=== PATIENT | male | born 1930 | race Caucasian/White ===

== ENCOUNTER 2016-10-26 11:37 | Observation (INO) | payer OTHER ==
[2016-10-26 11:51] VITALS: BMI 24.9
[2016-10-26 12:18] LABS: BASOPHIL 1.1 % (0-2.0); EOSINOPHIL 12.1 % (0-4.5); MCH 28.9 pg (25.7-33.7); MCHC 32.4 g/dl (32.0-35.9); MEAN CELL VOLUME 89.4 fl (80-96); NEUTROPHILS 62.7 % (42.8-82.8); PLATELET COUNT 130 K/MM3 (134-434); RDW 15.1 % (11.9-15.9); WHITE BLOOD COUNT 7.1 K/mm3 (4.0-10.0)
--- NOTE | 2016-10-26 12:27 | PDOC ---
History of Present Illness - General History Source: Patient, Family, Old Records Exam Limitations: No Limitations <Jay Carr - Last Filed: 10/26/16 16:27> - History of Present Illness Initial Comments: 10/26/16 12:28 The patient is a 85 year old male, with a significant past medical history of hypertension, hyperlipidemia, CHF, COPD, prostate CA (in remission), who presents to the emergency department with hematuria today and persistent bilateral flank pain for a few days. The patient states he does not voluntarily produce urine and wears diapers. The patients daughter reports noticing blood with clots in his diaper today. The patients daughter also states her father has been complaining of right sided flank pain for a couple of weeks with intermittent radiation to his groin and reports having a CT scan positive for right renal cyst and cholelithiasis on 10/14/16. The patient reports new onset of mild, intermittent, left flank pain for the past couple of days. He denies chest pain, shortness of breath, headache and dizziness. He denies fever, chills, nausea, vomit, diarrhea and constipation. He denies dysuria. Allergies: NKDA Social history: denies toxic habits Urologist - Dr. Rodas <Bren Brunson - Last Filed: 10/26/16 16:36> - General Chief Complaint: Hematuria Stated Complaint: PENILE BLEEDING Time Seen by Provider: 10/26/16 11:47 Past History - Past Medical History Cardiac Disorders: Yes (PA: 2002) COPD: Yes (EMPHYSEMA) HTN: Yes Kidney Stones: Yes - Surgical History Cardiac Surgery: Yes (STENTS X 3: 2002; VALVE REPLACEMENT X 2: 11/2011) - Psycho/Social/Smoking Cessation Hx Anxiety: No Suicidal Ideation: No Smoking Status: No (QUIT 2002) Smoking History: Never smoked Have you smoked in the past 12 months: No Number of Cigarettes Smoked Daily: 0 Information on smoking cessation initiated: No Hx Alcohol Use: No Drug/Substance Use Hx: No Substance Use Type: None <Jay Carr - Last Filed: 10/26/16 16:27> <Bren Brunson - Last Filed: 10/26/16 16:36> - Past Medical History Allergies/Adverse Reactions: Allergies Allergy/AdvReac Type Severity Reaction Status Date / Time No Known Allergies Allergy Verified 10/26/16 11:51 Home Medications: Ambulatory Orders Aspirin [ASA -] 81 mg PO DAILY 10/26/16 Brimonidine Tartrate [Alphagan P 0.1% -] 1 drop OU TID 10/26/16 Clopidogrel Bisulfate [Plavix -] 75 mg PO DAILY 10/26/16 Fluticasone Prop 0.05% Nasal [Flonase -] 1 - 2 spray NS BID 10/26/16 Metoprolol Succinate [Toprol Xl -] 25 mg PO DAILY 10/26/16 Rosuvastatin [Crestor -] 20 mg PO DAILY 10/26/16 Review of Systems - Review of Systems Able to Perform ROS?: Yes Comments:: 10/26/16 12:29 GENERAL/CONSTITUTIONAL: No fever or chills. No weakness. HEAD, EYES, EARS, NOSE AND THROAT: No change in vision. No ear pain or discharge. No sore throat. CARDIOVASCULAR: No chest pain or shortness of breath. RESPIRATORY: No cough, wheezing, or hemoptysis. GASTROINTESTINAL: No nausea, vomiting, diarrhea or constipation. GENITOURINARY: (+) bilateral flank pain, hematuria and frequency, No dysuria, change in urination. MUSCULOSKELETAL: No joint or muscle swelling or pain. No neck or back pain. SKIN: No rash NEUROLOGIC: No headache, vertigo, loss of consciousness, or change in strength/ sensation. ENDOCRINE: No increased thirst. No abnormal weight change. HEMATOLOGIC/LYMPHATIC: No anemia, easy bleeding, or history of blood clots. ALLERGIC/IMMUNOLOGIC: No hives or skin allergy. <Bren Brunson - Last Filed: 10/26/16 16:36> *Physical Exam - Vital Signs Last Vital Signs Temp Pulse Resp BP Pulse Ox 97.4 F L 54 L 18 138/82 95 10/26/16 11:49 10/26/16 11:49 10/26/16 11:49 10/26/16 11:49 10/26/16 11:49 <Jay Carr - Last Filed: 10/26/16 16:27> - Vital Signs Last Vital Signs Temp Pulse Resp BP Pulse Ox 97.4 F L 54 L 18 138/82 95 10/26/16 11:49 10/26/16 11:49 10/26/16 11:49 10/26/16 11:49 10/26/16 11:49 - Physical Exam Comments: 10/26/16 12:31 GENERAL: Awake, alert, and fully oriented, in no acute distress HEAD: No signs of trauma EYES: PERRLA, EOMI, sclera anicteric, conjunctiva clear ENT: Auricles normal inspection, hearing grossly normal, nares patent, oropharynx clear without exudates. Moist mucosa NECK: Normal ROM, supple, no lymphadenopathy, JVD, or masses LUNGS: Breath sounds equal, clear to auscultation bilaterally. No wheezes, and no crackles HEART: Regular rate and rhythm, normal S1 and S2, no murmurs, rubs or gallops ABDOMEN: Soft, nontender, normoactive bowel sounds. No guarding, no rebound. No masses EXTREMITIES: Normal range of motion, no edema. No clubbing or cyanosis. No cords, erythema, or tenderness NEUROLOGICAL: Cranial nerves II-XII intact. Normal speech, normal gait. Sensation intact in upper and lower extremities. 5/5 motor strength in upper and lower extremities. No pronator drift. Finger to nose intact. Rapid alternations intact. SKIN: Warm, Dry, normal turgor, no rashes or lesions noted. <Bren Brunson - Last Filed: 10/26/16 16:36> Heart Score/ECG Review #1 ECG reviewed & interpreted by me at: 11:55 10/26/16 12:27 NSR 52, T wave flat V5-V6, no std/bernard, normal axis, normal intervals, QTC 425 msec <Jay Carr - Last Filed: 10/26/16 16:27> ED Treatment Course - LABORATORY CBC & Chemistry Diagram: 10/26/16 12:10 10/26/16 12:10 - RADIOLOGY Radiology Studies Ordered: Category Date Time Status SPIRAL- RENAL-STONE CT [CT] Stat CT Scan 10/26/16 11:56 Ordered <Jay Carr - Last Filed: 10/26/16 16:27> - LABORATORY CBC & Chemistry Diagram: 10/26/16 12:10 10/26/16 12:10 - ADDITIONAL ORDERS Additional order review: 10/26/16 12:10 RBC 3.84 L MCV 89.4 MCHC 32.4 RDW 15.1 MPV 9.0 Neutrophils % 62.7 Lymphocytes % 15.8 D Monocytes % 8.3 Eosinophils % 12.1 H Basophils % 1.1 - RADIOLOGY Radiograph Interpretation: 10/26/16 14:59 EXAM: CT abdomen and pelvis without intravenous contrast was read by Blanca Galvez M.D. at 14:50 EST FINDINGS: Cystic renal lesions are present. There is a very large right cystic renal lesion measuring at least 10 cm. There is right renal cortical atrophy with moderate hydronephrosis, no hydroureter. There are nonobstructing renal calculi bilaterally. The urinary bladder is decompressed. There is cholelithiasis. There is colonic diverticulosis. There is no bowel obstruction or localized inflammation. The appendix is visualized and normal. There is no ascites or pneumoperitoneum. There is no acute osseous abnormality. IMPRESSION: 1. Nephrolithiasis. 2. 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 3. Cholelithiasis. Diverticulosis. <Bren Brunson - Last Filed: 10/26/16 16:36> Medical Decision Making - Medical Decision Making 10/26/16 12:26 A portion of this note was documented by scribe services under my direction. I have reviewed the details of the note, within reason, and agree with the documentation with the following case summary and management plan written by me. Patient treated in the ED. Nursing notes are reviewed and incorporated into the medical decision-making. Vital signs reviewed. Peripheral IV access obtained by the nurse, laboratory studies are drawn and sent, reviewed and interpreted by myself. Vital Signs Temp Pulse Resp BP Pulse Ox 97.4 F L 54 L 18 138/82 95 10/26/16 11:49 10/26/16 11:49 10/26/16 11:49 10/26/16 11:49 10/26/16 11:49 85 year old male with past medical history of hypertension, hyperlipidemia, coronary disease, congestive heart failure, COPD, prostate cancer in remission presents with hematuria today. The patient has history urinary incontinence so frequently urinates on himself. Noted that he has had blood in his urine. Denies fevers, chills. Patient has reported last several days of having bilateral abdominal pains. On October 14, patient had a CAT scan performed which demonstrated a 6 mm kidney stone on the right an atrophic kidney on the left. Came into the ED because of hematuria. The hematuria may be potentially secondary to his kidney stone. However, we'll need to check for cystitis. We'll obtain a CAT scan to evaluate for the kidney stone and progression. We'll need to check labs checked for hemoglobin as well as creatinine to rule out post obstructive renal failure. 10/26/16 16:29 CBC, BMP 10/26/16 12:10 10/26/16 12:10 CMP Sodium 142 mmol/L (136-145) 10/26/16 12:10 Potassium 5.2 mmol/L (3.5-5.1) H 10/26/16 12:10 Chloride 107 mmol/L (98-107) 10/26/16 12:10 Carbon Dioxide 29 mmol/L (21-32) 10/26/16 12:10 Anion Gap 6 (8-16) L 10/26/16 12:10 BUN 24 mg/dL (7-18) H 10/26/16 12:10 Creatinine 1.3 mg/dL (0.7-1.3) 10/26/16 12:10 Creat Clearance w eGFR 52.72 (>60) 10/26/16 12:10 Random Glucose 100 mg/dL (74-106) 10/26/16 12:10 Calcium 8.5 mg/dL (8.5-10.1) 10/26/16 12:10 Total Bilirubin 0.3 mg/dL (0.2-1.0) 10/26/16 12:10 AST 15 U/L (15-37) 10/26/16 12:10 ALT 14 U/L (12-78) 10/26/16 12:10 Alkaline Phosphatase 83 U/L (45-117) 10/26/16 12:10 Total Protein 6.9 g/dl (6.4-8.2) 10/26/16 12:10 Albumin 3.4 g/dl (3.4-5.0) 10/26/16 12:10 Urine Test Results Urine Color Red 10/26/16 12:40 Urine Appearance Clear 10/26/16 12:40 Urine pH 6.0 (5.0-8.0) 10/26/16 12:40 Urine Protein 1+ (NEGATIVE) H 10/26/16 12:40 Urine Glucose (UA) Negative (NEGATIVE) 10/26/16 12:40 Urine Ketones Negative (NEGATIVE) 10/26/16 12:40 Urine Blood 3+ (NEGATIVE) H 10/26/16 12:40 Urine Nitrite Negative (NEGATIVE) 10/26/16 12:40 Urine Bilirubin Negative (NEGATIVE) 10/26/16 12:40 Ur Leukocyte Esterase 2+ (NEGATIVE) H 10/26/16 12:40 Urine RBC 630 /hpf (0-3) 10/26/16 12:40 Urine WBC 158 /hpf (3-5) 10/26/16 12:40 Urine Bacteria Rare /hpf (NONE SEEN) 10/26/16 12:40 Imaging rn rehabilitation reviewed. Kidney stones. Moderate right sided hydronephrosis with cortical thinning and a normal caliber ureter. Chronic UPJ obstruction. Given UA findings with 2+ leuk, will treat as an obstructed kidney stone. Ceftriaxone ordered. Pt does not have WBC or fever, which is more reassuring. Case discussed with DR. Rubalcava. Will observe patient in the hospital overnight. Case discussed in detail with admitting physician including history, physical exam and ancillary studies. Admitting physician has assumed care for the patient, will follow all pending diagnostics and will complete the evaluation and treatment. <Jay Carr - Last Filed: 10/26/16 16:27> - Medical Decision Making 10/26/16 14:58 Dr. Clement was paged via phone answering service at this time requesting a call back for doctor to doctor consult. Dr. Clement was paged a second time at 15:20 via phone answering service requesting a call back for doctor to doctor consult. 10/26/16 15:35 Dr. Rubalcava, covering for Dr. Clement, returned the call and the patient's case was discussed. Dr. Rubalcava agrees the patient should be admitted at this time. [facility] service was microblogged at 15:57 for admission of this patient. I have called the patient's daughter to inform her of her father's care plan. 10/26/16 16:32 Dr. Rubalcava was called via phone answering service and a message was left with the service informing Dr. Rubalcava that this patient will be admitted under observation and that the [facility] requests a consult from the urologist at some point during the patient's stay. <Bren Brunson - Last Filed: 10/26/16 16:36> *DC/Admit/Observation/Transfer - Discharge Dispostion Admit: Yes <Jay Carr - Last Filed: 10/26/16 16:27> - Attestations Scribe Attestion: 10/26/16 12:43 Documentation prepared by Bren Brunson, acting as certified medical transcriptionist for Jay Carr MD, <Bren Brunson - Last Filed: 10/26/16 16:36> Diagnosis at time of Disposition: Kidney stone - Referrals Referrals: Jordy Lucia MD, MD [Primary Care Provider] -
[2016-10-26 12:43] LABS: ALBUMIN 3.4 g/dl (3.4-5.0); BILIRUBIN,TOTAL 0.3 mg/dL (0.2-1.0); CALCIUM 8.5 mg/dL (8.5-10.1); COCKROFT - GAULT 40.05; CREATININE 1.3 mg/dL (0.7-1.3); TOT PROT 6.9 g/dl (6.4-8.2)
[2016-10-26 12:47] LABS: URINE APPEARANCE CLEAR; URINE BILIRUBIN NEGATIVE (NEGATIVE); URINE BLOOD 3+ (NEGATIVE); URINE COLOR RED; URINE GLUCOSE (UA) NEGATIVE (NEGATIVE); URINE KETONE NEGATIVE (NEGATIVE); URINE LEUK ESTERASE 2+ (NEGATIVE); URINE NITRITE NEGATIVE (NEGATIVE); URINE PROTEIN 1+ (NEGATIVE); URINE UROBILINOGEN NEGATIVE E.U./dl (0.2-1.0)
[2016-10-26 12:53] LABS: URINE BACTERIA RARE /hpf (NONE SEEN); URINE RBC 630 /hpf (0-3); URINE WBC 158 /hpf (3-5)
[2016-10-26 13:38] LABS: INR 1.02 (0.82-1.09); PROTHROMBIN TIME (PATIENT) 11.2 SEC (9.98-11.88)
[2016-10-26 13:41] LABS: ACTIVATED PTT 29.7 SECONDS (26.9-34.4)
[2016-10-26] MEDS ORDERED: morphine CARPU-JECT 2 MG/1 ML DISP.SYRIN IVPUSH ONE (15:56)
[2016-10-26] MEDS ORDERED: CEFTRIAXONE 1 GM in DEXTROSE 5%-WATER - 50 ML IVPB ONE (15:56)
[2016-10-26] MEDS ORDERED: ACETAMINOPHEN 325 MG TABLET (FP) PO PRN (16:40)
--- NOTE | 2016-10-26 16:40 | HP ---
CHIEF COMPLAINT: hematuria PCP: Dr. Lucia HISTORY OF PRESENT ILLNESS: The patient is a 85 year old male, with a significant past medical history of hypertension, hyperlipidemia, CHF, COPD, prostate CA (in remission), who presents to the emergency department with hematuria today and persistent bilateral flank pain for a few days. The patient states he does not voluntarily produce urine and wears diapers. The patients daughter reports noticing blood with clots in his diaper today. The patients daughter also states her father has been complaining of right sided flank pain for a couple of weeks with intermittent radiation to his groin and reports having a CT scan positive for right renal cyst and cholelithiasis on 10/14/16. The patient reports new onset of mild, intermittent, left flank pain for the past couple of days. He denies chest pain, shortness of breath, headache and dizziness. He denies fever, chills, nausea, vomit, diarrhea and constipation. He denies dysuria. Allergies: NKDA Social history: denies toxic habits Urologist - Dr. Rodas ER course was notable for: (1) hydronephrosis finding with hematuria, awaiting consult wit (2) (3) Recent Travel: denies PAST MEDICAL HISTORY: hypertension, hyperlipidemia, CHF, COPD, prostate CA (in remission) PAST SURGICAL HISTORY: Social History: denies all toxic habits Smoking: Alcohol: Drugs: Family History: Allergies No Known Allergies Allergy (Verified 10/26/16 11:51) HOME MEDICATIONS: Home Medications Medication Instructions Recorded Aspirin [ASA -] 81 mg PO DAILY 10/26/16 Brimonidine Tartrate [Alphagan P 1 drop OU TID 10/26/16 0.1% -] Clopidogrel Bisulfate [Plavix -] 75 mg PO DAILY 10/26/16 Fluticasone Prop 0.05% Nasal 1 - 2 spray NS BID 10/26/16 [Flonase -] Metoprolol Succinate [Toprol Xl -] 25 mg PO DAILY 10/26/16 Rosuvastatin [Crestor -] 20 mg PO DAILY 10/26/16 REVIEW OF SYSTEMS CONSTITUTIONAL: Absent: fever, chills, diaphoresis, generalized weakness, malaise, loss of appetite, weight change HEENT: Absent: rhinorrhea, nasal congestion, throat pain, throat swelling, difficulty swallowing, mouth swelling, ear pain, eye pain, visual changes CARDIOVASCULAR: Absent: chest pain, syncope, palpitations, irregular heart rate, lightheadedness , peripheral edema RESPIRATORY: Absent: cough, shortness of breath, dyspnea with exertion, orthopnea, wheezing, stridor, hemoptysis GASTROINTESTINAL: Absent: abdominal pain, abdominal distension, nausea, vomiting, diarrhea, constipation, melena, hematochezia GENITOURINARY: Absent: dysuria, frequency, urgency, hesitancy, (+)hematuria, (+)flank pain, genital pain MUSCULOSKELETAL: Absent: myalgia, arthralgia, joint swelling, back pain, neck pain SKIN: Absent: rash, itching, pallor HEMATOLOGIC/IMMUNOLOGIC: Absent: easy bleeding, easy bruising, lymphadenopathy, frequent infections ENDOCRINE: Absent: unexplained weight gain, unexplained weight loss, heat intolerance, cold intolerance NEUROLOGIC: Absent: headache, focal weakness or paresthesias, dizziness, unsteady gait, seizure, mental status changes, bladder or bowel incontinence PSYCHIATRIC: Absent: anxiety, depression, suicidal or homicidal ideation, hallucinations. PHYSICAL EXAMINATION Vital Signs - 24 hr 10/26/16 11:49 Temperature 97.4 F L Pulse Rate 54 L Respiratory 18 Rate Blood Pressure 138/82 O2 Sat by Pulse 95 Oximetry (%) GENERAL: Awake, alert, and fully oriented, in no acute distress. HEAD: Normal with no signs of trauma. EYES: Pupils equal, round and reactive to light, extraocular movements intact, sclera anicteric, conjunctiva clear. No lid lag. EARS, NOSE, THROAT: Ears normal, nares patent, oropharynx clear without exudates. Moist mucous membranes. NECK: Normal range of motion, supple without lymphadenopathy, JVD, or masses. LUNGS: Breath sounds equal, clear to auscultation bilaterally. No wheezes, and no crackles. No accessory muscle use. HEART: Regular rate and rhythm, normal S1 and S2 without murmur, rub or gallop. ABDOMEN: Soft, nontender, not distended, normoactive bowel sounds, no guarding, no rebound, no masses. No hepatomegaly or splenomegaly. MUSCULOSKELETAL: Normal range of motion at all joints. No bony deformities or tenderness. + right sided CVA tenderness. UPPER EXTREMITIES: 2+ pulses, warm, well-perfused. No cyanosis. No clubbing. No peripheral edema. LOWER EXTREMITIES: 2+ pulses, warm, well-perfused. No calf tenderness. No peripheral edema. NEUROLOGICAL: Cranial nerves II-XII intact. Normal speech. Normal gait. PSYCHIATRIC: Cooperative. Good eye contact. Appropriate mood and affect. SKIN: Warm, dry, normal turgor, no rashes or lesions noted, normal capillary refill. Laboratory Results - last 24 hr 10/26/16 10/26/16 10/26/16 12:10 12:10 12:40 WBC 7.1 D RBC 3.84 L Hgb 11.1 L Hct 34.3 L MCV 89.4 MCHC 32.4 RDW 15.1 Plt Count 130 L MPV 9.0 Neutrophils % 62.7 Lymphocytes % 15.8 D Monocytes % 8.3 Eosinophils % 12.1 H Basophils % 1.1 INR PTT (Actin FS) Sodium 142 Potassium 5.2 H Chloride 107 Carbon Dioxide 29 Anion Gap 6 L BUN 24 H Creatinine 1.3 Creat Clearance w eGFR 52.72 Random Glucose 100 Calcium 8.5 Total Bilirubin 0.3 AST 15 ALT 14 Alkaline Phosphatase 83 Total Protein 6.9 Albumin 3.4 Urine Color Red Urine Appearance Clear Urine pH 6.0 Urine Protein 1+ H Urine Glucose (UA) Negative Urine Ketones Negative Urine Blood 3+ H Urine Nitrite Negative Urine Bilirubin Negative Urine Urobilinogen Negative Ur Leukocyte Esterase 2+ H Urine RBC 630 Urine WBC 158 Urine Bacteria Rare 10/26/16 13:07 WBC RBC Hgb Hct MCV MCHC RDW Plt Count MPV Neutrophils % Lymphocytes % Monocytes % Eosinophils % Basophils % INR 1.02 PTT (Actin FS) 29.7 Sodium Potassium Chloride Carbon Dioxide Anion Gap BUN Creatinine Creat Clearance w eGFR Random Glucose Calcium Total Bilirubin AST ALT Alkaline Phosphatase Total Protein Albumin Urine Color Urine Appearance Urine pH Urine Protein Urine Glucose (UA) Urine Ketones Urine Blood Urine Nitrite Urine Bilirubin Urine Urobilinogen Ur Leukocyte Esterase Urine RBC Urine WBC Urine Bacteria ASSESSMENT/PLAN: 1. hematuria with hx of prostate ca in remission and kidney stones. -fluids -avoid clotting and monitor urine flow, if decreases and abd/flank pain begins, call pcp -consult with Dr. Clement called -pain mediations as needed. -strict I and O 2. hyperkalemia -monitor K for trending currently on high side of normal at 5.2. Visit type - Emergency Visit Emergency Visit: Yes Care time: The patient presented to the Emergency Department on the above date and was hospitalized for further evaluation of their emergent condition. - New Patient This patient is new to me today: Yes Date on this admission: 10/26/16 - Critical Care Critical Care patient: No
[2016-10-26] MEDS ORDERED: morphine CARPU-JECT 2 MG/1 ML DISP.SYRIN PRN (16:42)
[2016-10-26] MEDS ORDERED: CEFTRIAXONE 50 ML ONE (18:35)
[2016-10-27] MEDS ORDERED: PT OWN MED DRAWER 7, Y5N ONE ×5 (05:57→22:30)
[2016-10-27] MEDS: BRIMONIDINE TARTRATE 0.1% OPHTHALMIC 5 ML BOTTLE OU SCH ×3 (07:01→21:22)
[2016-10-27 07:35] LABS: INR 1.04 (0.82-1.09); PROTHROMBIN TIME (PATIENT) 11.4 SEC (9.98-11.88)
[2016-10-27 07:36] LABS: BASOPHIL 1.1 % (0-2.0); EOSINOPHIL 14.1 % (0-4.5); MCHC 32.4 g/dl (32.0-35.9); MEAN CELL VOLUME 89.5 fl (80-96); MEAN PLT VOLUME 9.5 fl (7.5-11.1); NEUTROPHILS 54.6 % (42.8-82.8); PLATELET COUNT 137 K/MM3 (134-434); WHITE BLOOD COUNT 6.7 K/mm3 (4.0-10.0)
[2016-10-27 07:38] LABS: ACTIVATED PTT 28.8 SECONDS (26.9-34.4)
[2016-10-27 07:54] LABS: ALBUMIN 3.2 g/dl (3.4-5.0); CALCIUM 8.5 mg/dL (8.5-10.1)
[2016-10-27 07:55] LABS: BILIRUBIN,TOTAL 0.5 mg/dL (0.2-1.0); COCKROFT - GAULT 43.39; CREATININE 1.2 mg/dL (0.7-1.3); TOT PROT 6.6 g/dl (6.4-8.2)
[2016-10-27] MEDS ORDERED: morphine CARPU-JECT 2 MG/1 ML DISP.SYRIN IVPUSH PRN (09:36)
[2016-10-27] MEDS ORDERED: METOPROLOL SUCCINATE 25 MG TAB.SR.24H (FP) PO SCH (10:00)
[2016-10-27] MEDS ORDERED: CEFTRIAXONE 1 GM in DEXTROSE 5%-WATER - 50 ML IVPB SCH (10:00)
[2016-10-27] MEDS ORDERED: FLUTICASONE PROP 0.05% 16 GM NASAL SPRAY NS SCH (10:00)
[2016-10-27] MEDS ORDERED: cefTRIAXone 1 GM/50 ML BAG (PRE-DOCKED) IVPB SCH (10:00)
[2016-10-27] MEDS: FLUTICASONE PROP 0.05% 16 GM NASAL SPRAY NS SCH ×2 (11:57→21:22)
--- NOTE | 2016-10-27 16:33 | PN ---
Physical Exam: SUBJECTIVE: Patient seen and examined. He denies any chest pain or shortness of breath. OBJECTIVE: voiding clear yellow urine bladder scan with 45cc of post residual urine. Vital Signs Period Temp Pulse Resp BP Sys/Hollis Pulse Ox Last 24 Hr 97.4 F-98.0 F 44-56 16-20 128-171/57-79 97-98 GENERAL: The patient is awake, alert, and fully oriented, in no acute distress. HEAD: Normal with no signs of trauma. EYES: PERRL, extraocular movements intact, sclera anicteric, conjunctiva clear. No ptosis. ENT: Ears normal, nares patent, oropharynx clear without exudates, moist mucous membranes. NECK: Trachea midline, full range of motion, supple. LUNGS: Breath sounds equal, clear to auscultation bilaterally, no wheezes, no crackles, no accessory muscle use. HEART: Regular rate and rhythm ABDOMEN: Soft, nontender, nondistended, normoactive bowel sounds, no guarding, no rebound, no hepatosplenomegaly, no masses. EXTREMITIES: 2+ pulses, warm, well-perfused, no edema. NEUROLOGICAL: Normal speech, gait not observed. PSYCH: Normal mood, normal affect. SKIN: Warm, dry, normal turgor, no rashes or lesions noted Laboratory Results - last 24 hr 10/27/16 10/27/16 10/27/16 06:00 06:00 06:00 WBC 6.7 RBC 3.93 L Hgb 11.4 L Hct 35.2 L MCV 89.5 MCHC 32.4 RDW 15.0 Plt Count 137 MPV 9.5 Neutrophils % 54.6 Lymphocytes % 22.2 D Monocytes % 8.0 Eosinophils % 14.1 H Basophils % 1.1 INR 1.04 PTT (Actin FS) 28.8 Sodium 143 Potassium 5.2 H Chloride 105 Carbon Dioxide 27 Anion Gap 11 BUN 27 H Creatinine 1.2 Creat Clearance w eGFR 57.82 Random Glucose 84 Calcium 8.5 Total Bilirubin 0.5 D AST 14 L ALT 12 Alkaline Phosphatase 79 Total Protein 6.6 Albumin 3.2 L Active Medications Generic Name Dose Route Start Last Admin Trade Name Freq PRN Reason Stop Dose Admin Acetaminophen 650 mg 10/26/16 16:40 Tylenol - PO Q4H PRN FEVER OR PAIN Brimonidine Tartrate 1 drop 10/27/16 06:00 10/27/16 13:29 Alphagan P 0.1% - OU 1 drop TID HERBER Administration Ceftriaxone Sodium 1 gm 10/27/16 10:00 10/27/16 09:47 Rocephin 1gm Ivpb (Pre-Docked) IVPB 1 gm DAILY HERBER Administration Fluticasone Propionate 2 spray 10/27/16 10:00 10/27/16 11:57 Flonase - NS 2 spr BID HERBER Administration Latanoprost 1 drop 10/27/16 22:00 Xalatan 0.005% Eye Drops - OU HS HERBER Metoprolol Succinate 25 mg 10/27/16 10:00 10/27/16 09:47 Toprol Xl - PO 25 mg DAILY HERBER Administration Morphine Sulfate 2 mg 10/27/16 09:36 Morphine Injection - IVPUSH Q4H PRN PAIN Rosuvastatin Calcium 20 mg 10/27/16 22:00 Crestor - PO HS HERBER ASSESSMENT/PLAN: The patient is a 85 year old male, with a significant past medical history of hypertension, hyperlipidemia, CHF, COPD, prostate CA (in remission), who presents to the emergency department with hematuria and persistent bilateral flank pain x a few days. The patient states he wears diapers at home and the daughter reported noticing blood with clots in his diaper today. The patients daughter also states her father has been complaining of right sided flank pain for a couple of weeks with intermittent radiation to his groin. He denies chest pain, shortness of breath, headache and dizziness. He denies fever, chills, nausea, vomit, diarrhea and constipation. He denies dysuria. : Hematuria, Flank Pain - acute Assessment/Plan: Continue to monitor urine flow pain management with morphine prn Awaiting urologist follow up monitor h/h strict intake and output Bladder scan q shift Urologist consulted F.E.N. Fluids: tolerating PO Electrolytes: hyperkalemia, monitor bmp Prophylaxis: DVT: scds, ambulatory GI: deferred for now Disposition: Full Code.
--- NOTE | 2016-10-27 17:16 | CON.GU ---
Consult - History of Present Illness History of Present Illness: 85 yo male known to me with prior h/o prostate cancer s/p XRT, also with urethral stricture and incontinence. Now admitted with flank pain and hematuria. NCCT shows nonobstructing small rt stones. Urine now clear - Alcohol/Substance Use Hx Alcohol Use: No - Smoking History Smoking history: Former smoker Have you smoked in the past 12 months: No Aproximately how many cigarettes per day: 0 If you are a former smoker, when did you quit?: 2002 Home Medications - Allergies Allergies/Adverse Reactions: Allergies Allergy/AdvReac Type Severity Reaction Status Date / Time No Known Allergies Allergy Verified 10/26/16 11:51 - Home Medications Home Medications: Ambulatory Orders Aspirin [ASA -] 81 mg PO DAILY 10/26/16 Brimonidine Tartrate [Alphagan P 0.1% -] 1 drop OU TID 10/26/16 Clopidogrel Bisulfate [Plavix -] 75 mg PO DAILY 10/26/16 Fluticasone Prop 0.05% Nasal [Flonase -] 1 - 2 spray NS BID 10/26/16 Metoprolol Succinate [Toprol Xl -] 25 mg PO DAILY 10/26/16 Rosuvastatin [Crestor -] 20 mg PO DAILY 10/26/16 Travatan Z 0.004 drop OU HS 10/27/16 Review of Systems - Review of Systems Genitourinary: reports: Hematuria, Incontinence Physical Exam- Vital Signs: Vital Signs Temperature 97.4 F L 10/27/16 13:59 Pulse Rate 49 L 10/27/16 13:59 Respiratory Rate 20 10/27/16 13:59 Blood Pressure 171/79 10/27/16 13:59 O2 Sat by Pulse Oximetry (%) 98 10/27/16 10:00 Cardiovascular: Yes: Regular Rate and Rhythm Respiratory: Yes: CTA Bilaterally Gastrointestinal: Yes: Normal Bowel Sounds, Soft Renal/: Yes: Hematuria, Incontinence Pelvis: Yes: Bladder Non Palpable Testicles: Yes: Descended Labs: CBC, BMP 10/27/16 06:00 10/27/16 06:00 Imaging - Results Cat Scan: Image Reviewed Problem List - Problems (1) Kidney stone Assessment/Plan: observe small stone, no explanation for pain based on CT findings, stable from standpoint, outpt f/u Code(s): N20.0 - CALCULUS OF KIDNEY
[2016-10-27] MEDS ORDERED: ROSUVASTATIN CA 20 MG TABLET (FP) PO SCH (22:00)
[2016-10-27] MEDS ORDERED: LATANOPROST 0.005% OPHTH SOLN 2.5ML BOTTLE OU SCH (22:00)
[2016-10-28] MEDS ORDERED: PT OWN MED DRAWER 7, Y5N ONE (05:40)
[2016-10-28] MEDS: BRIMONIDINE TARTRATE 0.1% OPHTHALMIC 5 ML BOTTLE OU SCH (05:57)
[2016-10-28 07:43] LABS: BASOPHIL 1.2 % (0-2.0); EOSINOPHIL 11.7 % (0-4.5); MCH 29.2 pg (25.7-33.7); MCHC 32.8 g/dl (32.0-35.9); MEAN CELL VOLUME 89.2 fl (80-96); MEAN PLT VOLUME 9.4 fl (7.5-11.1); NEUTROPHILS 57.8 % (42.8-82.8); PLATELET COUNT 149 K/MM3 (134-434); WHITE BLOOD COUNT 7.2 K/mm3 (4.0-10.0)
[2016-10-28 08:16] LABS: ALBUMIN 3.5 g/dl (3.4-5.0); BILIRUBIN,TOTAL 0.4 mg/dL (0.2-1.0); CALCIUM 8.8 mg/dL (8.5-10.1); COCKROFT - GAULT 43.39; CREATININE 1.2 mg/dL (0.7-1.3); TOT PROT 7.5 g/dl (6.4-8.2)
--- NOTE | 2016-10-28 08:51 | DS ---
Physical Exam: SUBJECTIVE: Patient seen and examined. Patient denies any abdominal pain or discomfort. OBJECTIVE: Patient to follow up with his urologist as an outpatient. Vital Signs Period Temp Pulse Resp BP Sys/Hollis Pulse Ox Last 24 Hr 97.4 F-98.5 F 49-62 18-20 121-171/57-79 97-98 PHYSICAL EXAM GENERAL: The patient is awake, alert, and fully oriented, in no acute distress. HEAD: Normal with no signs of trauma. EYES: PERRL, extraocular movements intact, sclera anicteric, conjunctiva clear. No ptosis. ENT: Ears normal, nares patent, oropharynx clear without exudates, moist mucous membranes. NECK: Trachea midline, full range of motion, supple. LUNGS: Breath sounds equal, clear to auscultation bilaterally, no wheezes, no crackles, no accessory muscle use. HEART: Regular rate and rhythm ABDOMEN: Soft, nontender, nondistended, normoactive bowel sounds, no guarding, no rebound, no hepatosplenomegaly, no masses. EXTREMITIES: 2+ pulses, warm, well-perfused, no edema. NEUROLOGICAL: Normal speech, gait not observed. PSYCH: Normal mood, normal affect. SKIN: Warm, dry, normal turgor, no rashes or lesions noted LABS Laboratory Results - last 24 hr 10/28/16 10/28/16 06:00 06:00 WBC 7.2 RBC 4.28 Hgb 12.5 Hct 38.2 MCV 89.2 MCHC 32.8 RDW 15.0 Plt Count 149 MPV 9.4 Neutrophils % 57.8 Lymphocytes % 21.9 Monocytes % 7.4 Eosinophils % 11.7 H Basophils % 1.2 Sodium 142 Potassium 4.8 Chloride 104 Carbon Dioxide 28 Anion Gap 10 BUN 30 H Creatinine 1.2 Creat Clearance w eGFR 57.82 Random Glucose 90 Calcium 8.8 Total Bilirubin 0.4 AST 16 ALT 15 D Alkaline Phosphatase 86 Total Protein 7.5 Albumin 3.5 HOSPITAL COURSE: Date of Admission:10/26/16 Date of Discharge: 10/28/16 The patient is a 85 year old male, with a significant past medical history of hypertension, hyperlipidemia, CHF, COPD, prostate CA (in remission), who presents to the emergency department with hematuria and persistent bilateral flank pain x a few days. The patient states he wears diapers at home and the daughter reported noticing blood with clots in his diaper today. The patients daughter also states her father has been complaining of right sided flank pain for a couple of weeks with intermittent radiation to his groin. He denies chest pain, shortness of breath, headache and dizziness. He denies fever, chills, nausea, vomit, diarrhea and constipation. He denies dysuria. : Hematuria, Flank Pain - resolved Assessment/Plan: patient voiding without difficulty Patient to follow up with urologist on discharge Disposition: Full Code. Discharge Summary Reason For Visit: CALCULUS OF KIDNEY Current Active Problems Kidney stone (Acute) Condition: Stable - Instructions Diet, Activity, Other Instructions: Mr. King: Please follow up with your urologist within 1 week after discharge. Please also follow up with your PCP. Please return to the ER with any persistent or worsening symptoms. Referrals: Denys Clement MD [Staff Physician] - Jordy Lucia MD, MD [Primary Care Provider] - Disposition: HOME - Home Medications Comprehensive Discharge Medication List: Ambulatory Orders Aspirin [ASA -] 81 mg PO DAILY 10/26/16 Brimonidine Tartrate [Alphagan P 0.1% -] 1 drop OU TID 10/26/16 Clopidogrel Bisulfate [Plavix -] 75 mg PO DAILY 10/26/16 Fluticasone Prop 0.05% Nasal [Flonase -] 1 - 2 spray NS BID 10/26/16 Metoprolol Succinate [Toprol Xl -] 25 mg PO DAILY 10/26/16 Rosuvastatin [Crestor -] 20 mg PO DAILY 10/26/16 Travatan Z 0.004 drop OU HS 10/27/16
[2016-10-28 09:08] VITALS: BP 135/65; PULSE 59; TEMP 97.8
--- NOTE | 2016-10-28 17:14 | EKG ---
Test Reason : Blood Pressure : / mmHG Vent. Rate : 052 BPM Atrial Rate : 052 BPM P-R Int : 160 ms QRS Dur : 100 ms QT Int : 458 ms P-R-T Axes : 060 -14 053 degrees QTc Int : 425 ms SINUS BRADYCARDIA WITH SINUS ARRHYTHMIA NONSPECIFIC T WAVE ABNORMALITY ABNORMAL ECG WHEN COMPARED WITH ECG OF 08-APR-2014 12:07, T WAVE VARIATION Confirmed by HIRAM OSBORN MD ([id number]) on 10/28/2016 5:14:14 PM Referred By: Confirmed By:HIRAM OSBORN MD
== END 2016-10-28 09:24 | disposition home or self-care (01) ==
LOC: JER 11:37 → JERBED 16:31 → J7W 19:14
PROVIDERS: ADMIT Urology; ATTEND Nurse Practitioner Family
DX: N20.0 Calculus of kidney (principal); I10 Essential (primary) hypertension; I50.9 Heart failure, unspecified; I25.2 Old myocardial infarction; E78.5 Hyperlipidemia, unspecified; E87.6 Hypokalemia; J44.9 Chronic obstructive pulmonary disease, unspecified; Z85.46 Personal history of malignant neoplasm of prostate; Z95.5 Presence of coronary angioplasty implant and graft; Z95.2 Presence of prosthetic heart valve; Z87.891 Personal history of nicotine dependence; Z79.82 Long term (current) use of aspirin
CPT/HCPCS: 36415; 74176; 80053; 81003; 81015; 85025; 85610; 85730; 87086; 93005; 93010; 99284-25; G0378

== ENCOUNTER 2017-06-12 09:42 | Emergency (ER) | payer OTHER ==
[2017-06-12 10:11] VITALS: BMI 27.4
--- NOTE | 2017-06-12 10:26 | PDOC ---
History of Present Illness - History of Present Illness Initial Comments: 06/12/17 16:13 85 y.o male with significant past medical history of kidney stones, CAD s/p stents x3, valve replacement 2012, CHF, HTN, COPD, and prostate Cancer in remission, who presents to the emergency room complaining of 2 days of nonradiating right lower back/buttock pain. The pain is exacerbated with movement and alleviated when lying down. He denies numbness or tingling down the lower extremities. The patient reports a similar episode of pain 2 months ago that resolved on its own. He denies heavy lifting or recent trauma. Denies hematuria, dysuria, or any other urinary symptoms. The patient also reports 4 days of a productive cough with white sputum and nasal congestion. Denies fever , chills, nausea,vomiting, abdominal pain, diarrhea. Allergies: NKDA Urologist: Dr. Clement <Patsy Venegas - Last Filed: 06/12/17 16:13> - General History Source: Patient <Alonzo Nelson - Last Filed: 06/12/17 20:18> <Andreea Petty - Last Filed: 06/12/17 21:57> - General Chief Complaint: SIRS, Suspected/Possible Stated Complaint: HIP PAIN Time Seen by Provider: 06/12/17 10:00 Past History <Patsy Venegas - Last Filed: 06/12/17 16:13> - Past Medical History Cardiac Disorders: Yes (AK: 2002) COPD: Yes (EMPHYSEMA) HTN: Yes Kidney Stones: Yes - Surgical History Cardiac Surgery: Yes (STENTS X 3: 2002; VALVE REPLACEMENT X 2: 11/2011) - Suicide/Smoking/Psychosocial Hx Smoking Status: No (QUIT 2002) Smoking History: Never smoked Have you smoked in the past 12 months: No Number of Cigarettes Smoked Daily: 0 If you are a former smoker, when did you quit?: 2002 Information on smoking cessation initiated: No Hx Alcohol Use: No Drug/Substance Use Hx: No Substance Use Type: None Hx Substance Use Treatment: No <Alonzo Nelson - Last Filed: 06/12/17 20:18> <Andreea Petty - Last Filed: 06/12/17 21:57> - Past Medical History Allergies/Adverse Reactions: Allergies Allergy/AdvReac Type Severity Reaction Status Date / Time No Known Allergies Allergy Verified 06/12/17 10:11 Home Medications: Ambulatory Orders Aspirin [ASA -] 81 mg PO DAILY 10/26/16 Brimonidine Tartrate [Alphagan P 0.1% -] 1 drop OU TID 10/26/16 Clopidogrel Bisulfate [Plavix -] 75 mg PO DAILY 10/26/16 Fluticasone Prop 0.05% Nasal [Flonase -] 1 - 2 spray NS BID 10/26/16 Metoprolol Succinate [Toprol XL -] 25 mg PO DAILY 10/26/16 Rosuvastatin [Crestor -] 20 mg PO DAILY 10/26/16 Azithromycin [Zithromax -] 250 mg PO DAILY #4 tab 06/12/17 Azithromycin [Zithromax -] 250 mg PO DAILY #4 tab 06/12/17 Benzonatate [Tessalon Pearls -] 100 mg PO TID #21 capsule 06/12/17 Review of Systems - Review of Systems Able to Perform ROS?: Yes Comments:: 06/12/17 16:13 CONSTITUTIONAL: No reported: Fever, Chills, Diaphoresis, Generalized Weakness, Malaise, Loss of Appetite HEENT: +nasal congestion No reported: Rhinorrhea, Throat Pain, Throat Swelling, Difficulty Swallowing, Mouth Swelling, Ear Pain, Eye Pain, Visual Changes CARDIOVASCULAR: No reported: Chest Pain, Syncope, Palpitations, Irregular Heart Rate, Lightheadedness, Peripheral Edema RESPIRATORY: +cough No reported: Shortness of Breath, SOB with Exertion, Orthopnea, Wheezing, Stridor, Hemoptysis GASTROINTESTINAL: No reported: Abdominal pain, Abdominal Distension, Nausea, Vomiting, Diarrhea, Constipation, Melena, Hematochezia GENITOURINARY: No reported: Dysuria, Frequency, Urgency, Hesitancy,, Genital Pain MUSCULOSKELETAL: +right lower back/buttock pain No reported: Joint Swelling, Neck Pain SKIN: No reported: Rash, Itching, Pallor HEMEATOLOGIC/IMMUNOLOGIC: No reported: Easy Bleeding, Easy Bruising, Lymphadenopathy, Frequent infections ENDOCRINE: No reported: Unexplained Weight Gain, Unexplained Weight Loss, Heat Intolerance , Cold Intolerance NEUROLOGIC: No reported: Headache, Focal Weakness, Paresthesias, Vertigo, Lightheadedness, Unsteady Gait, Seizure, Mental Status Changes, Incontinence PSYCHIATRIC: No reported: Anxiety, Depression <Estatico,Patsy - Last Filed: 06/12/17 16:13> *Physical Exam - Vital Signs Last Vital Signs Temp Pulse Resp BP Pulse Ox 98.8 F 63 18 113/77 98 06/12/17 14:31 06/12/17 14:31 06/12/17 14:31 06/12/17 14:31 06/12/17 14:31 - Physical Exam Comments: 06/12/17 16:14 GENERAL: The patient is awake, alert, and fully oriented, Nontoxic - in no acute distress. HEAD: Normocephalic, atraumatic. EYES: extraocular movements intact, sclera anicteric, conjunctiva clear. ENT: Normal voice, Moist mucous membranes. NECK: Normal range of motion, supple LUNGS: scattered wheezing, no rales appreciated, no respiratory distress speaking complete sentences HEART: Regular rate and rhythm, normal S1 and S2 without murmur, rub or gallop. ABDOMEN: Soft, nontender, normoactive bowel sounds. No guarding, no rebound. No CVA tenderness EXTREMITIES: +tenderness at R buttock, BACK: No tendeness in the cervical/thoracic/lumbar spine or paraspinal region, no erythema, fluctuance NEUROLOGICAL: No facial assymetry, Normal speech, PSYCH: Normal mood, normal affect. SKIN: Warm, Dry, normal turgor, no rashes on back/leg. <Patsy Venegas - Last Filed: 06/12/17 16:13> - Vital Signs Last Vital Signs Temp Pulse Resp BP Pulse Ox 102.5 F H 71 18 154/69 100 06/12/17 10:16 06/12/17 09:45 06/12/17 09:45 06/12/17 09:45 06/12/17 09:45 <Alonzo Nelson - Last Filed: 06/12/17 20:18> - Vital Signs Last Vital Signs Temp Pulse Resp BP Pulse Ox 99.0 F 78 18 115/68 98 06/12/17 20:16 06/12/17 18:54 06/12/17 18:54 06/12/17 18:54 06/12/17 18:54 <Andreea Petty - Last Filed: 06/12/17 21:57> Heart Score/ECG Review - ECG Impressions Comment:: 06/12/17 15:06 Twelve-lead EKG was performed and reviewed by me. There is normal sinus rhythm with a normal rate. Rate of 81 Flipped T wave in the lateral leads PVC present <Leslie,Alonzo - Last Filed: 06/12/17 20:18> ED Treatment Course - LABORATORY CBC & Chemistry Diagram: 06/12/17 10:19 06/12/17 10:19 - ADDITIONAL ORDERS Additional order review: Laboratory Results 06/12/17 06/12/17 06/12/17 10:20 10:19 10:19 PT with INR INR PTT (Actin FS) VBG pH POC VBG pCO2 POC VBG pO2 Mixed VBG HCO3 Sodium Potassium Chloride Carbon Dioxide Anion Gap BUN Creatinine Creat Clearance w eGFR Random Glucose Lactic Acid 1.0 Calcium Total Bilirubin AST ALT Alkaline Phosphatase Creatine Kinase Troponin I Total Protein Albumin Urine Color Yolanda Urine Appearance Cloudy Urine pH 5.0 Ur Specific [place] 1.019 Urine Protein 1+ H Urine Glucose (UA) Negative Urine Ketones Trace H Urine Blood 1+ H Urine Nitrite Negative Urine Bilirubin Negative Urine Urobilinogen Negative Urine WBC (Auto) 11 Urine RBC (Auto) 1 Ur Epithelial Cells Rare Urine Bacteria Rare Urine Mucus Few Blood Type A POSITIVE Antibody Screen Positive H 06/12/17 06/12/17 06/12/17 10:19 10:19 10:19 PT with INR 12.70 H INR 1.12 PTT (Actin FS) 28.6 VBG pH 7.43 H POC VBG pCO2 35.2 L POC VBG pO2 42.5 Mixed VBG HCO3 23.0 Sodium Potassium Chloride Carbon Dioxide Anion Gap BUN Creatinine Creat Clearance w eGFR Random Glucose Lactic Acid Calcium Total Bilirubin AST ALT Alkaline Phosphatase Creatine Kinase 78 Troponin I < 0.02 Total Protein Albumin Urine Color Urine Appearance Urine pH Ur Specific [place] Urine Protein Urine Glucose (UA) Urine Ketones Urine Blood Urine Nitrite Urine Bilirubin Urine Urobilinogen Urine WBC (Auto) Urine RBC (Auto) Ur Epithelial Cells Urine Bacteria Urine Mucus Blood Type Antibody Screen 06/12/17 10:19 PT with INR INR PTT (Actin FS) VBG pH POC VBG pCO2 POC VBG pO2 Mixed VBG HCO3 Sodium 140 Potassium 4.9 Chloride 104 Carbon Dioxide 24 Anion Gap 12 BUN 32 H Creatinine 1.4 H Creat Clearance w eGFR 48.28 Random Glucose 130 H D Lactic Acid Calcium 9.4 Total Bilirubin 0.6 D AST 14 L ALT 16 Alkaline Phosphatase 89 Creatine Kinase Troponin I Total Protein 7.6 Albumin 3.3 L Urine Color Urine Appearance Urine pH Ur Specific [place] Urine Protein Urine Glucose (UA) Urine Ketones Urine Blood Urine Nitrite Urine Bilirubin Urine Urobilinogen Urine WBC (Auto) Urine RBC (Auto) Ur Epithelial Cells Urine Bacteria Urine Mucus Blood Type Antibody Screen 06/12/17 10:19 RBC 4.07 MCV 89.5 MCHC 31.4 L RDW 14.6 MPV 9.2 Neutrophils % 84.5 H D Lymphocytes % 5.2 L D Monocytes % 9.7 Eosinophils % 0.2 D Basophils % 0.4 - Medications Given in the ED: ED Medications Discontinued Medications Generic Name Dose Route Start Last Admin Trade Name Freq PRN Reason Stop Dose Admin Acetaminophen 650 mg 06/12/17 10:27 06/12/17 11:03 Tylenol - PO 06/12/17 10:28 650 mg ONCE ONE Administration Ketorolac Tromethamine 15 mg 06/12/17 10:27 06/12/17 11:03 Toradol Injection - IVPUSH 06/12/17 10:28 15 mg ONCE ONE Administration <Patsy Venegas - Last Filed: 06/12/17 16:13> - LABORATORY CBC & Chemistry Diagram: 06/12/17 10:19 06/12/17 10:19 <Alonzo Nelson - Last Filed: 06/12/17 20:18> - LABORATORY CBC & Chemistry Diagram: 06/12/17 10:19 06/12/17 10:19 - ADDITIONAL ORDERS Additional order review: Laboratory Results 06/12/17 06/12/17 06/12/17 10:20 10:19 10:19 PT with INR INR PTT (Actin FS) VBG pH POC VBG pCO2 POC VBG pO2 Mixed VBG HCO3 Sodium Potassium Chloride Carbon Dioxide Anion Gap BUN Creatinine Creat Clearance w eGFR Random Glucose Lactic Acid 1.0 Calcium Total Bilirubin AST ALT Alkaline Phosphatase Creatine Kinase Troponin I Total Protein Albumin Urine Color Yolanda Urine Appearance Cloudy Urine pH 5.0 Ur Specific [place] 1.019 Urine Protein 1+ H Urine Glucose (UA) Negative Urine Ketones Trace H Urine Blood 1+ H Urine Nitrite Negative Urine Bilirubin Negative Urine Urobilinogen Negative Ur Leukocyte Esterase Negative Urine WBC (Auto) 11 Urine RBC (Auto) 1 Ur Epithelial Cells Rare Urine Bacteria Rare Urine Mucus Few Blood Type A POSITIVE Antibody Screen Positive H Antibody Identification No Result Required. Antigen Identification Fya Antigen - NEGATIVE 06/12/17 06/12/17 06/12/17 10:19 10:19 10:19 PT with INR 12.70 H INR 1.12 PTT (Actin FS) 28.6 VBG pH 7.43 H POC VBG pCO2 35.2 L POC VBG pO2 42.5 Mixed VBG HCO3 23.0 Sodium Potassium Chloride Carbon Dioxide Anion Gap BUN Creatinine Creat Clearance w eGFR Random Glucose Lactic Acid Calcium Total Bilirubin AST ALT Alkaline Phosphatase Creatine Kinase 78 Troponin I < 0.02 Total Protein Albumin Urine Color Urine Appearance Urine pH Ur Specific [place] Urine Protein Urine Glucose (UA) Urine Ketones Urine Blood Urine Nitrite Urine Bilirubin Urine Urobilinogen Ur Leukocyte Esterase Urine WBC (Auto) Urine RBC (Auto) Ur Epithelial Cells Urine Bacteria Urine Mucus Blood Type Antibody Screen Antibody Identification Antigen Identification 06/12/17 10:19 PT with INR INR PTT (Actin FS) VBG pH POC VBG pCO2 POC VBG pO2 Mixed VBG HCO3 Sodium 140 Potassium 4.9 Chloride 104 Carbon Dioxide 24 Anion Gap 12 BUN 32 H Creatinine 1.4 H Creat Clearance w eGFR 48.28 Random Glucose 130 H D Lactic Acid Calcium 9.4 Total Bilirubin 0.6 D AST 14 L ALT 16 Alkaline Phosphatase 89 Creatine Kinase Troponin I Total Protein 7.6 Albumin 3.3 L Urine Color Urine Appearance Urine pH Ur Specific [place] Urine Protein Urine Glucose (UA) Urine Ketones Urine Blood Urine Nitrite Urine Bilirubin Urine Urobilinogen Ur Leukocyte Esterase Urine WBC (Auto) Urine RBC (Auto) Ur Epithelial Cells Urine Bacteria Urine Mucus Blood Type Antibody Screen Antibody Identification Antigen Identification 06/12/17 10:19 RBC 4.07 MCV 89.5 MCHC 31.4 L RDW 14.6 MPV 9.2 Neutrophils % 84.5 H D Lymphocytes % 5.2 L D Monocytes % 9.7 Eosinophils % 0.2 D Basophils % 0.4 - Medications Given in the ED: ED Medications Discontinued Medications Generic Name Dose Route Start Last Admin Trade Name Freq PRN Reason Stop Dose Admin Acetaminophen 650 mg 06/12/17 10:27 06/12/17 11:03 Tylenol - PO 06/12/17 10:28 650 mg ONCE ONE Administration Ketorolac Tromethamine 15 mg 06/12/17 10:27 06/12/17 11:03 Toradol Injection - IVPUSH 06/12/17 10:28 15 mg ONCE ONE Administration <Andreea Petty - Last Filed: 06/12/17 21:57> Medical Decision Making - Medical Decision Making 06/12/17 10:29 86y M hx of CAD, HTN, kidney stones, COPD, presenst for evluation of atraumatic R hip pain x 2 days that is worse with movement and walking. No falls/lifting, urinary symptoms. pt also endorses a few days of nasal congestion, and cough productive of whitish sputum. on exm pt has reporoducible tenderness on the R buttock - > msk vs bony injury vs kidney stone will ck ua, hip/pelvis will give small dose of nsaid for fever, suspect URI/influenza will ck cxr based on protocol rquirements, sepsis initiated A portion of this note was documented by scribe services under my direction. I have reviewed the details of the note, within reason, and agree with the documentation with the following case summary and management plan written by me 06/12/17 14:09 labs reviewed mild ursula pt feeling improved without pain currently will send urine he just provided 06/12/17 20:[address] abd to see if he has kidneys tones due to +hematuria if neg will dc th pt with pmd fu signed out to dr. petty to fu with results and fu with patient <LeslieAlonzo - Last Filed: 06/12/17 20:18> - Medical Decision Making 06/12/17 21:17 I received pt on signout. Follow CT abd Pelvis and D/c if normal. Pt comes with fever/viral like body pains and cough x 3 days. He has new EKG changes. Flipped T's inferolaterally; however cardiac enzymes are normal. Pt wants to leave prior to result of CT returning, as it is taking hours to come back. We called [facility], and they promise that they are reading the CT scan next. Pt will be sent home with artur and luis chi. He has a hx of COPD, but he is no longer a smoker. On bedside exam he has no abd pain and he has no flank pain. He complains only of right hip discomofort, but he is able to range the hip without pain and he has no fever at this time, and no redness over the hip. Rocking the hip causes no pain. Pt understands to return for worsening fever or pains. 06/12/17 21:54 Patient Name: HARRIETT MESA THIS IS A PRELIMINARY REPORT FROM [facility] DATE OF SERVICE: 2017-06-12 18:19:58 IMAGES: [id number] EXAM: CT ABDOMEN AND PELVIS WITHOUT CONTRAST REASON FOR EXAM: Abdominal pain RLQ COMPARISON: None FINDINGS: Lower lung ornelas are clear. Tiny gallstone in the gallbladder neck. No surrounding inflammation. Liver, pancreas, spleen and adrenal glands are grossly unremarkable given the limitation of this non contrast exam. Multiple bilateral renal cysts are seen. A large exophytic cyst arises from the lower pole the right kidney measuring 11.2 x 8.9 x 14.6 cm. 10 x 5 mm nonobstructing stone in the right kidney noted. No evidence of obstructive uropathy. Abdominal aorta without AAA. There is no retroperitoneal hemorrhage The appendix is normal. Left colonic diverticulosis. Evaluation of the GI tract is limited without oral contrast. No evidence of bowel obstruction, ascites, abscess, free air or diverticulitis. Bladder collapsed. Prostate radiation seeds noted. Lumbar spine and bony pelvis without fracture or destructive lesion. Degenerative disc bulge and spinal stenosis at C4 and L4-5 IMPRESSION: Cholelithiasis Multiple bilateral renal cysts with large 14 cm cyst involving the right kidney. Nonobstructing 10 x 5 mm right renal stone. No evidence of obstructive uropathy. Appendix is normal. THIS DOCUMENT HAS BEEN ELECTRONICALLY SIGNED I called the to let her know of the results. <Andreea Petty - Last Filed: 06/12/17 21:57> *DC/Admit/Observation/Transfer - Attestations Scribe Attestion: 06/12/17 16:14 Documentation prepared by ROMAN Bob, acting as medical insurance claims specialist for Alonzo Nelson MD <Patsy Venegas - Last Filed: 06/12/17 16:13> <Alonzo Nelson - Last Filed: 06/12/17 20:18> <Andreea Petty - Last Filed: 06/12/17 21:57> Diagnosis at time of Disposition: discharged - Discharge Dispostion Disposition: HOME - Prescriptions Prescriptions: Azithromycin [Zithromax -] 250 mg PO DAILY #4 tab Azithromycin [Zithromax -] 250 mg PO DAILY #4 tab Benzonatate [Tessalon Pearls -] 100 mg PO TID #21 capsule - Referrals Referrals: Jordy Lucia MD, [Primary Care Provider] -
[2017-06-12] MEDS ORDERED: KETOROLAC TROMETHAMINE 30 MG/1 ML VIAL IVPUSH ONE (10:27)
[2017-06-12] MEDS ORDERED: ACETAMINOPHEN 325 MG TABLET (FP) PO ONE (10:27)
[2017-06-12] MEDS ORDERED: ACETAMINOPHEN 325 MG TABLET (FP) ONE (10:40)
[2017-06-12] MEDS ORDERED: KETOROLAC TROMETHAMINE 15 MG/ML VIAL ONE (10:41)
[2017-06-12 10:46] LABS: BASO % 0.4 % (0-2.0); EOS % 0.2 % (0-4.5); HEMATOCRIT 36.4 % (35.4-49); HEMOGLOBIN 11.4 GM/dL (11.7-16.9); LYMPH % 5.2 % (8-40); MCH 28.1 pg (25.7-33.7); MCHC 31.4 g/dl (32.0-35.9); MEAN CELL VOLUME 89.5 fl (80-96); MEAN PLT VOLUME 9.2 fl (7.5-11.1); MONO % 9.7 % (3.8-10.2); NEUT % 84.5 % (42.8-82.8); PLATELET COUNT 166 K/MM3 (134-434); RBC 4.07 M/mm3 (4.00-5.60); RDW 14.6 % (11.9-15.9); WHITE BLOOD COUNT 9.3 K/mm3 (4.0-10.0)
[2017-06-12 10:47] LABS: VENOUS PH 7.43 (7.32-7.42)
[2017-06-12 10:48] LABS: VENOUS PC02 35.2 mmHg (38-52); VENOUS PO2 42.5 mmHg (28-48)
[2017-06-12 10:58] LABS: INR 1.12 (0.82-1.09); PROTHROMBIN TIME (PATIENT) 12.7 SEC (9.98-11.88)
[2017-06-12 11:00] LABS: ACTIVATED PTT 28.6 SECONDS (26.9-34.4)
[2017-06-12 11:09] LABS: ALBUMIN 3.3 g/dl (3.4-5.0); ALK PHOS 89 U/L (45-117); ANION GAP 12 (8-16); BILIRUBIN,TOTAL 0.6 mg/dL (0.2-1.0); BLOOD UREA NITROGEN 32 mg/dL (7-18); CALCIUM 9.4 mg/dL (8.5-10.1); CHLORIDE 104 mmol/L (98-107); CO2 24 mmol/L (21-32); CREATININE 1.4 mg/dL (0.7-1.3); GLUCOSE,RANDOM 130 mg/dL (74-106); POTASSIUM 4.9 mmol/L (3.5-5.1); SGOT/AST 14 U/L (15-37); SGPT/ALT 16 U/L (12-78); SODIUM 140 mmol/L (136-145); TOT PROT 7.6 g/dl (6.4-8.2)
[2017-06-12 14:59] LABS: URINE APPEARANCE CLOUDY; URINE BILIRUBIN NEGATIVE (NEGATIVE); URINE BLOOD 1+ (NEGATIVE); URINE COLOR AMBER; URINE GLUCOSE (UA) NEGATIVE (NEGATIVE); URINE KETONE TRACE (NEGATIVE); URINE LEUK ESTERASE TRACE (NEGATIVE); URINE NITRITE NEGATIVE (NEGATIVE); URINE UROBILINOGEN NEGATIVE mg/dL (0.2-1.0)
[2017-06-12 15:05] LABS: URINE PROTEIN 1+ (NEGATIVE)
[2017-06-12 15:08] LABS: EPI CELLS RARE /HPF (FEW); URINE BACTERIA RARE /hpf (NONE SEEN); URINE MUCUS FEW
[2017-06-12 18:55] VITALS: BP 115/68; PULSE 78
[2017-06-12 20:16] VITALS: TEMP 99
[2017-06-12] MEDS ORDERED: AZITHROMYCIN 250 MG TABLET PO ONE (21:04)
[2017-06-12] MEDS ORDERED: guaiFENesin 200 MG/10 ML 10 ML UNIT-DOSE CUPS PO ONE (21:07)
[2017-06-12] MEDS ORDERED: AZITHROMYCIN 250 MG TABLET ONE (21:12)
[2017-06-12] MEDS ORDERED: guaiFENesin/D-METHORPHAN HB 10 ML UNIT-DOSE CUPS ONE (21:12)
--- NOTE | 2017-06-13 11:11 | EKG ---
Test Reason : Blood Pressure : / mmHG Vent. Rate : 081 BPM Atrial Rate : 081 BPM P-R Int : 150 ms QRS Dur : 088 ms QT Int : 380 ms P-R-T Axes : 054 -13 013 degrees QTc Int : 441 ms SINUS RHYTHM WITH OCCASIONAL PREMATURE VENTRICULAR COMPLEXES T WAVE ABNORMALITY, CONSIDER LATERAL ISCHEMIA ABNORMAL ECG WHEN COMPARED WITH ECG OF 26-OCT-2016 11:55, PREMATURE VENTRICULAR COMPLEXES ARE NOW PRESENT VENT. RATE HAS INCREASED BY 29 BPM NONSPECIFIC T WAVE ABNORMALITY NOW EVIDENT IN INFERIOR LEADS INVERTED T WAVES HAVE REPLACED NONSPECIFIC T WAVE ABNORMALITY IN LATERAL LEADS CLINICAL CORRELATION IS RECOMMENDED Confirmed by KENNEDI CORNEJO, FRANKLIN ([id number]) on 06/13/2017 11:11:09 AM Referred By: Confirmed By:FRANKLIN KOLB MD
== END 2017-06-12 21:35 | disposition home or self-care (01) ==
LOC: JER 09:42
PROC: 3E0333Z Introduction of Anti-inflammatory into Peripheral Vein, Percutaneous Approach (ICD-10-PCS; principal; 2017-06-12)
DX: M54.5 Low back pain (principal)
CPT/HCPCS: 36415; 71010-TC; 73523-TC; 74176-TC; 80053; 81003; 81015; 82550; 82803; 83605; 84484; 85025; 85610; 85730; 86850; 86870; 86900; 86901; 86902; 87040; 87077; 87086; 93005; 93010; 99285-25

== ENCOUNTER 2017-09-04 22:20 | Observation (INO) | payer BC, OTHER ==
--- NOTE | 2017-09-04 23:44 | PDOC ---
History of Present Illness - General Chief Complaint: Weakness Stated Complaint: WEAKNESS Time Seen by Provider: 09/04/17 23:15 History Source: Patient, Family (daughter) - History of Present Illness Initial Comments: 09/04/17 23:41 This is an 86-year-old male with past medical history of prostate CA, urinary incontinence, ID with stent 4, CABG 3, aortic aneurysm repair 2010, heart failure brought to the emergency department by EMS for right lower extremity weakness for unknown amount of time. The daughter states she received a call from the neighbor approximately 2 hours prior to arrival stating the patient had weakness in his right leg. Patient states the sensation started before that and is unclear the exact onset of symptoms. Patient states she was able to walk from his kitchen to his bedroom holding onto the wall. Patient reports she had also had facial numbness which has resolved. Patient states his facial numbness has been intermittent for the past "couple of months." Patient also states she has had some hematuria and rectal bleeding last week. Patient denies fevers, chills, chest pain, shortness of breath, headaches, dizziness, nausea, vomiting. Past History - Past Medical History Allergies/Adverse Reactions: Allergies Allergy/AdvReac Type Severity Reaction Status Date / Time No Known Allergies Allergy Verified 09/04/17 22:39 Home Medications: Ambulatory Orders Aspirin [ASA -] 81 mg PO DAILY 10/26/16 Brimonidine Tartrate [Alphagan P 0.1% -] 1 drop OU TID 10/26/16 Clopidogrel Bisulfate [Plavix -] 75 mg PO DAILY 10/26/16 Fluticasone Prop 0.05% Nasal [Flonase -] 1 - 2 spray NS BID 10/26/16 Metoprolol Succinate [Toprol XL -] 25 mg PO DAILY 10/26/16 Rosuvastatin [Crestor -] 20 mg PO DAILY 10/26/16 Azithromycin [Zithromax -] 250 mg PO DAILY #4 tab 06/12/17 Azithromycin [Zithromax -] 250 mg PO DAILY #4 tab 06/12/17 Benzonatate [Tessalon Pearls -] 100 mg PO TID #21 capsule 06/12/17 Cardiac Disorders: Yes (ID: 2002) COPD: Yes (EMPHYSEMA) HTN: Yes Kidney Stones: Yes - Surgical History Cardiac Surgery: Yes (STENTS X 3: 2002; VALVE REPLACEMENT X 2: 11/2011) - Immunization History Immunization Up to Date: Yes - Suicide/Smoking/Psychosocial Hx Smoking Status: No (QUIT 2002) Smoking History: Never smoked Have you smoked in the past 12 months: No Number of Cigarettes Smoked Daily: 0 If you are a former smoker, when did you quit?: 2002 Information on smoking cessation initiated: No Hx Alcohol Use: No Drug/Substance Use Hx: No Substance Use Type: None Hx Substance Use Treatment: No Neuro Specific PMHX - Complaint Specific PMHX Glaucoma: No Herniated Disk: No Laminectomy: No Migraine: No Multiple Sclerosis: No Neuropathy: No TIA: No Review of Systems - Review of Systems Able to Perform ROS?: Yes Is the patient limited Georgian proficient: No Constitutional: No: Symptoms Reported HEENTM: Yes: See HPI Respiratory: No: Symptoms reported Cardiac (ROS): No: Symptoms Reported ABD/GI: Yes: See HPI : No: Symptoms Reported Musculoskeletal: Yes: See HPI Integumentary: No: Symptoms Reported Neurological: Yes: See HPI Endocrine: No: Symptoms Reported Hematologic/Lymphatic: No: Symptoms Reported *Physical Exam - Vital Signs Last Vital Signs Temp Pulse Resp BP Pulse Ox 97.8 F 54 L 18 154/76 96 09/04/17 22:39 09/04/17 22:39 09/04/17 22:39 09/04/17 22:39 09/04/17 22:39 - Physical Exam General Appearance: Yes: Appropriately Dressed. No: Apparent Distress HEENT: positive: Normal ENT Inspection Neck: positive: Trachea midline, Supple Respiratory/Chest: positive: Lungs Clear, Normal Breath Sounds. negative: Respiratory Distress, Accessory Muscle Use Cardiovascular: positive: Regular Rhythm, Regular Rate, S1, S2. negative: Edema , Murmur Gastrointestinal/Abdominal: positive: Normal Bowel Sounds, Soft. negative: Tender, Pulsatile Mass Musculoskeletal: positive: Normal Inspection. negative: CVA Tenderness Extremity: positive: Normal Inspection, Normal Range of Motion, Pelvis Stable. negative: Tender Integumentary: positive: Normal Color, Dry, Warm Neurologic: positive: geek squad manager II-XII NML intact, Fully Oriented, Alert, Normal Mood/ Affect, Normal Response, Motor Strength 5/5, Finger to Nose, Other (NIHSS-0). negative: EOM Palsy, Facial Droop, Sensory Deficit ED Treatment Course - LABORATORY CBC & Chemistry Diagram: 09/06/17 06:00 09/06/17 06:00 - RADIOLOGY Radiology Studies Ordered: Category Date Time Status HEAD CT WITHOUT CONTRAST [CT] Stat CT Scan 09/04/17 23:36 Ordered CHEST PA & LAT [RAD] Stat Radiology 09/04/17 23:34 Ordered Medical Decision Making - Medical Decision Making 09/04/17 23:44 A/P: 86-year-old medical history of prostate cancer, injury, 3, ID with stents 4, aortic aneurysm repair in 2010, CHF with right lower extremity weakness for an unspecified amount of time. Patient is awake alert and oriented 3. Cranial nerves II through XII intact. NIHSS-0 Able to perform rapid alternating movements without difficulty. Finger-nose testing within normal limits. Full sensation with 2-point discrimination present in all 4 extremities. Midline chest surgical scar present Respirations even and unlabored. Lungs clear to auscultation bilaterally. RRR. S1 and S2 present. No murmur, rub or gallop auscultated. Abdomen soft nontender nondistended. Moves all extremities with strength 4/5. TIA vs ID vs infectious etiology vs metabolic imbalance CT of the head, chest x-ray, labs, EKG 09/05/17 04:01 CT as read by Dr. Stafford: There are no intra-abdominal hemorrhages, extraction of fluid collections or evidence of intra-axial mass lesion. Several , scattered, deep white matter chronic microvascular ischemic changes are noted in the frontal and parietal lobes. There is an old focal lacunar infarct within the left caudate head. Orbital and petrous structures cerebellopontine angles and posterior fossa appear unremarkable. Air-fluid levels are noted within the maxillary and sternoid sinuses consistent with acute sinusitis. Paranasal and mastoid sinuses are clear. Impression: Frontal and parietal deep white matter chronic microvascular ischemic changes. Moderate age-related atrophy. Acute sphenoid and bilateral maxillary sinusitis Chest x-rays read by me: Angles clear. No consolidation or infiltrate noted. Laboratory testing unremarkable. EKG sinus bradycardia with a rate of 53. T-wave inversions noted in V5 and V6. Sign out given to LYNETTE Rutherford who accepts the patient for telemetry observation. *DC/Admit/Observation/Transfer Diagnosis at time of Disposition: TIA (transient ischemic attack) Qualifiers: Transient cerebral ischemia type: unspecified Qualified Code(s): G45.9 - Transient cerebral ischemic attack, unspecified Sinusitis, acute Qualifiers: Sinusitis location: sphenoidal Recurrence: not specified as recurrent Qualified Code(s): J01.30 - Acute sphenoidal sinusitis, unspecified - Discharge Dispostion Condition at time of disposition: Stable Admit: Yes - Referrals - Patient Instructions - Post Discharge Activity
--- NOTE | 2017-09-05 00:16 | PDOC ---
NIH Stroke Scale - Last Known Well Date/Time & Onset Date Last Known Well: 09/04/17 (unknown timing) - Initial Evaluation Level of consciousness: Alert Ask patient the month and their age: Answers both correctly Ask patient to open & close eyes; make fist and let go: Obeys both correctly Best gaze (horizontal eye movement): Normal Visual field testing: No visual field loss Facial paresis (Show teeth/raise eyebrows/close eyes tight): Normal symmetrical movement Motor Function: Left Arm: Normal Motor Function: Right Arm: Normal (extends arm 90 (or 45) degrees for 10 seconds without drift Motor Function: Left Leg: Normal (extends leg 30 degrees for 5 seconds without drift) Motor Function: Right Leg: Normal (extends leg 30 degrees for 5 seconds without drift) Limb Ataxia: No ataxia Sensory(Use pinprick test arms,legs,trunk,face/side to side): Normal Best language (Describe picture, name items, read sentences): No Aphasia Dysarthria (read several words): Normal articulation Extinction and Inattention: No abnormality - Total Score NIH Stroke Scale Score: 0
--- NOTE | 2017-09-05 00:17 | PDOC ---
tPA Exclusion Checklist 0-3hr - Time Elapsed Date last known well: 09/04/17 (unknown timing) - Thrombolytic Therapy Candidate Is the patient eligible for Thrombolytic Therapy?: Yes - Ineligibility reason(s) Reasons No tPA given: Outside of window - delayed arrival
[2017-09-05 01:37] LABS: HEMATOCRIT 33.3 % (35.4-49); HEMOGLOBIN 10.9 GM/dL (11.7-16.9); MCH 29.9 pg (25.7-33.7); MCHC 32.6 g/dl (32.0-35.9); MEAN CELL VOLUME 91.6 fl (80-96); RBC 3.64 M/mm3 (4.00-5.60); RDW 17.1 % (11.9-15.9)
[2017-09-05] MEDS: SODIUM CHLORIDE 1,000 ML IV SCH ×2 (01:43→07:53)
[2017-09-05 02:01] LABS: INR 0.97 (0.82-1.09)
[2017-09-05 02:22] LABS: ALBUMIN 3.7 g/dl (3.4-5.0); ANION GAP 10 (8-16); BILIRUBIN,TOTAL 0.2 mg/dL (0.2-1.0); BLOOD UREA NITROGEN 30 mg/dL (7-18); CALCIUM 8.4 mg/dL (8.5-10.1); CHLORIDE 108 mmol/L (98-107); CO2 25 mmol/L (21-32); CREATININE 1.2 mg/dL (0.7-1.3); GLUCOSE,RANDOM 90 mg/dL (74-106); POTASSIUM 4.9 mmol/L (3.5-5.1); SGOT/AST 16 U/L (15-37); SGPT/ALT 18 U/L (12-78); SODIUM 143 mmol/L (136-145); TOT PROT 7.4 g/dl (6.4-8.2)
[2017-09-05 02:24] LABS: ALK PHOS 80 U/L (45-117)
--- NOTE | 2017-09-05 02:26 | PDOC ---
*Physical Exam - Vital Signs Last Vital Signs Temp Pulse Resp BP Pulse Ox 97.8 F 54 L 18 154/76 96 09/04/17 22:39 09/04/17 22:39 09/04/17 22:39 09/04/17 22:39 09/04/17 22:39 ED Treatment Course - LABORATORY CBC & Chemistry Diagram: 09/05/17 01:21 09/05/17 01:21 - ADDITIONAL ORDERS Additional order review: Laboratory Results 09/05/17 09/05/17 01:21 01:21 PT with INR 11.00 INR 0.97 Sodium 143 Potassium 4.9 Chloride 108 H Carbon Dioxide 25 Anion Gap 10 BUN 30 H Creatinine 1.2 Creat Clearance w eGFR 57.68 Random Glucose 90 D Calcium 8.4 L Total Bilirubin 0.2 D AST 16 ALT 18 Alkaline Phosphatase 80 Creatine Kinase 83 Troponin I < 0.02 Total Protein 7.4 Albumin 3.7 09/05/17 01:21 RBC 3.64 L MCV 91.6 MCHC 32.6 RDW 17.1 H D Neutrophils % No Result Required. Lymphocytes % No Result Required. Medical Decision Making - Medical Decision Making 09/05/17 02:26 Pt seen by the Advanced Practice Provider under my direct supervision Ancillary studies reviewed I agree with plan as outlined by the Advanced Practice Provider *DC/Admit/Observation/Transfer - Referrals Referrals: Jordy Lucia MD, [Primary Care Provider] - - Patient Instructions - Post Discharge Activity
[2017-09-05 02:39] LABS: PLATELET ESTIMATE NORMAL
[2017-09-05 02:42] LABS: MEAN PLT VOLUME 10.2 fl (7.5-11.1); PLATELET COUNT 177 K/MM3 (134-434)
[2017-09-05 04:49] LABS: URINE APPEARANCE CLEAR; URINE BILIRUBIN NEGATIVE (<2.0 mg/dL); URINE BLOOD NEGATIVE (NEGATIVE); URINE COLOR LTYELLOW; URINE GLUCOSE (UA) NEGATIVE (NEGATIVE); URINE KETONE NEGATIVE (NEGATIVE); URINE NITRITE NEGATIVE (NEGATIVE); URINE PROTEIN NEGATIVE (NEGATIVE); URINE UROBILINOGEN NEGATIVE mg/dL (0.2-1.0)
[2017-09-05 04:53] LABS: URINE LEUK ESTERASE 3+ (NEGATIVE)
[2017-09-05 04:54] LABS: EPI CELLS RARE /HPF (FEW); URINE BACTERIA RARE /hpf (NONE SEEN); URINE MUCUS RARE
[2017-09-05] MEDS ORDERED: CEFTRIAXONE 1 GM in DEXTROSE 5%-WATER - 50 ML IVPB ONE (05:21)
--- NOTE | 2017-09-05 06:32 | HP ---
CHIEF COMPLAINT: R sided weakness PCP: Gregory Lucia HISTORY OF PRESENT ILLNESS: This is an 86 year old male with a past medical history significant for HTN, HLD , CHF, CAD s/p CABG who presented to the ED with right lower extremity weakness and facial numbness which has resolved. He reports the facial numbness has been intermittent over the past couple of months. He reported to the ED staff that he had hematuria and rectal bleeding last week but none presently. On exam he states that the numbness and weakness gone and he feels better. ER course was notable for: (1) CT head unremarkable (2) hgb 10.9 (3) BUN/Cr 30/1.2 Recent Travel: pt denies PAST MEDICAL HISTORY: HTN, HLD, CHF, NM s/p stent x 4, CABG x 3, aortic aneurysm repair, prostate CA, urinary incontinence PAST SURGICAL HISTORY: CABG 3-4 years ago Aneurysm repair 2010 Social History: Smoking: pt denies Alcohol: pt denies Drugs: pt denies Allergies No Known Allergies Allergy (Verified 09/04/17 22:39) HOME MEDICATIONS: 3 Medication Instructions Recorded Aspirin [ASA -] 81 mg PO DAILY 10/26/16 Brimonidine Tartrate [Alphagan P 1 drop OU TID 10/26/16 0.1% -] Clopidogrel Bisulfate [Plavix -] 75 mg PO DAILY 10/26/16 Fluticasone Prop 0.05% Nasal 1 - 2 spray NS BID 10/26/16 [Flonase -] Metoprolol Succinate [Toprol XL -] 25 mg PO DAILY 10/26/16 Rosuvastatin [Crestor -] 20 mg PO DAILY 10/26/16 Azithromycin [Zithromax -] 250 mg PO DAILY #4 tab 06/12/17 Azithromycin [Zithromax -] 250 mg PO DAILY #4 tab 06/12/17 Benzonatate [Tessalon Pearls -] 100 mg PO TID #21 capsule 06/12/17 REVIEW OF SYSTEMS CONSTITUTIONAL: Absent: fever, chills, diaphoresis, generalized weakness, malaise, loss of appetite, weight change HEENT: Absent: rhinorrhea, nasal congestion, throat pain, throat swelling, difficulty swallowing, mouth swelling, ear pain, eye pain, visual changes CARDIOVASCULAR: Absent: chest pain, syncope, palpitations, irregular heart rate, lightheadedness , peripheral edema RESPIRATORY: Absent: cough, shortness of breath, dyspnea with exertion, orthopnea, wheezing, stridor, hemoptysis GASTROINTESTINAL: Absent: abdominal pain, abdominal distension, nausea, vomiting, diarrhea, constipation, melena, hematochezia GENITOURINARY: Absent: dysuria, frequency, urgency, hesitancy, hematuria, flank pain, genital pain MUSCULOSKELETAL: Absent: myalgia, arthralgia, joint swelling, back pain, neck pain SKIN: Absent: rash, itching, pallor HEMATOLOGIC/IMMUNOLOGIC: Absent: easy bleeding, easy bruising, lymphadenopathy, frequent infections ENDOCRINE: Absent: unexplained weight gain, unexplained weight loss, heat intolerance, cold intolerance NEUROLOGIC: Present: focal weakness or paresthesias Absent: headache, dizziness, unsteady gait, seizure, mental status changes, bladder or bowel incontinence PSYCHIATRIC: Absent: anxiety, depression, suicidal or homicidal ideation, hallucinations. PHYSICAL EXAMINATION Vital Signs - 24 hr 3 09/04/17 09/05/17 22:39 03:32 Temperature 97.8 F 98.7 F Pulse Rate 54 L Pulse Rate [ 53 L Right Apical] Respiratory 18 17 Rate Blood Pressure 154/76 Blood Pressure 154/64 [Left Arm] O2 Sat by Pulse 96 99 Oximetry (%) GENERAL: Awake, alert, and fully oriented, in no acute distress. HEAD: Normal with no signs of trauma. EYES: Pupils equal, round and reactive to light, extraocular movements intact, sclera anicteric, conjunctiva clear. No lid lag. EARS, NOSE, THROAT: Ears normal, nares patent, oropharynx clear without exudates. Moist mucous membranes. NECK: Normal range of motion, supple without lymphadenopathy, JVD, or masses. LUNGS: Breath sounds equal, clear to auscultation bilaterally. No wheezes, and no crackles. No accessory muscle use. HEART: Regular rate and rhythm, normal S1 and S2 without murmur, rub or gallop. ABDOMEN: Soft, nontender, not distended, normoactive bowel sounds, no guarding, no rebound, no masses. No hepatomegaly or splenomegaly. MUSCULOSKELETAL: Normal range of motion at all joints. No bony deformities or tenderness. No CVA tenderness. UPPER EXTREMITIES: 2+ pulses, warm, well-perfused. No cyanosis. No clubbing. No peripheral edema. muscle strength L&R 5/5 no pronator drift LOWER EXTREMITIES: 2+ pulses, warm, well-perfused. No calf tenderness. No peripheral edema. muscle strength L&R 5/5. NEUROLOGICAL: Cranial nerves II-XII intact. Normal speech. no facial droop. Gait not observed. PSYCHIATRIC: Cooperative. Good eye contact. Appropriate mood and affect. SKIN: Warm, dry, normal turgor, no rashes or lesions noted, normal capillary refill. Laboratory Results - last 24 hr 3 09/05/17 09/05/17 09/05/17 01:21 01:21 01:21 WBC 7.0 RBC 3.64 L Hgb 10.9 L Hct 33.3 L MCV 91.6 MCH 29.9 MCHC 32.6 RDW 17.1 H D Plt Count 177 MPV 10.2 D Neutrophils % No Result Required. Neutrophils % (Manual) 57.0 Band Neutrophils % 2.8 Lymphocytes % No Result Required. Lymphocytes % (Manual) 24.3 Monocytes % (Manual) 8 Eosinophils % (Manual) 6.6 H Basophils % (Manual) 0.9 Myelocytes % (Man) 0 Promyelocytes % (Man) 0 Blast Cells % (Manual) 0 Nucleated RBC % 3 H Metamyelocytes 0 Platelet Estimate Normal Platelet Comment No clumping noted PT with INR 11.00 INR 0.97 Sodium 143 Potassium 4.9 Chloride 108 H Carbon Dioxide 25 Anion Gap 10 BUN 30 H Creatinine 1.2 Creat Clearance w eGFR 57.68 Random Glucose 90 D Calcium 8.4 L Total Bilirubin 0.2 D AST 16 ALT 18 Alkaline Phosphatase 80 Creatine Kinase 83 Troponin I < 0.02 Total Protein 7.4 Albumin 3.7 Urine Color Urine Appearance Urine pH Ur Specific [place] Urine Protein Urine Glucose (UA) Urine Ketones Urine Blood Urine Nitrite Urine Bilirubin Urine Urobilinogen Ur Leukocyte Esterase Urine WBC (Auto) Urine RBC (Auto) Ur Epithelial Cells Urine Bacteria Urine Mucus Blood Type Antibody Screen Antibody Identification Antigen Identification 3 09/05/17 09/05/17 01:21 04:19 WBC RBC Hgb Hct MCV MCH MCHC RDW Plt Count MPV Neutrophils % Neutrophils % (Manual) Band Neutrophils % Lymphocytes % Lymphocytes % (Manual) Monocytes % (Manual) Eosinophils % (Manual) Basophils % (Manual) Myelocytes % (Man) Promyelocytes % (Man) Blast Cells % (Manual) Nucleated RBC % Metamyelocytes Platelet Estimate Platelet Comment PT with INR INR Sodium Potassium Chloride Carbon Dioxide Anion Gap BUN Creatinine Creat Clearance w eGFR Random Glucose Calcium Total Bilirubin AST ALT Alkaline Phosphatase Creatine Kinase Troponin I Total Protein Albumin Urine Color Ltyellow Urine Appearance Clear Urine pH 7.0 D Ur Specific [place] 1.013 Urine Protein Negative Urine Glucose (UA) Negative Urine Ketones Negative Urine Blood Negative Urine Nitrite Negative Urine Bilirubin Negative Urine Urobilinogen Negative Ur Leukocyte Esterase 3+ H Urine WBC (Auto) 35 Urine RBC (Auto) 1 Ur Epithelial Cells Rare Urine Bacteria Rare Urine Mucus Rare Blood Type A POSITIVE Antibody Screen Positive H Antibody Identification Fya Antigen Identification No Result Required. Radiology Report CT head THIS IS A PRELIMINARY REPORT FROM IMAGING [facility] ASSISTANT FINDINGS: The cerebral sulci and ventricles are moderately prominent, suggesting age related involutional changes. There are no intracranial hemorrhages, extra-axial fluid collections or evidence of an intra-axial mass lesion. Several, scattered, deep white matter chronic microvascular ischemic changes are noted in the frontal and parietal lobes. There is an old focal lacunar infarction is noted within the left caudate head. Incidentally noted are benign bilateral basal ganglia calcifications in the globus pallidus nuclei. Orbital and petrous structures, cerebellopontine angles, and posterior fossa appear unremarkable. Air-fluid levels are noted within the maxillary and sphenoid sinuses, consistent with acute sinusitis. The paranasal and mastoid sinuses are clear. IMPRESSION: Frontal and parietal deep white matter chronic microvascular ischemic changes. Moderate age related atrophy. Acute sphenoid and bilateral maxillary sinusitis. THIS DOCUMENT HAS BEEN ELECTRONICALLY SIGNED Kendrick Stafford MD. 09/05/2017 03:19 EST ECG Sinus bradycardia Vent rate 53, QTC 448 nonspecific T wave abnormality ASSESSMENT/PLAN: 86yM with PMH HTN, HLD, CHF, NM s/p stent x 4, CABG x 3, aortic aneurysm repair , prostate CA, urinary incontinence presented to the ED with transient RLE numbness and facial weakness. TIA - CT head with no acute changes - neuro consult - pt takes asa at home - pt already on crestor HTN/HLD/CHF/CAD - cont home plavix, toprol, asa and crestor DVT PPX - deferred as anticipated LOS <48h. FEN - NS @ 42 cc/hr - bmp in am - low sodium diet as tolerated Dispo: Pt currently requires further observation. Visit type - Emergency Visit Emergency Visit: Yes ED Registration Date: 09/04/17 Care time: The patient presented to the Emergency Department on the above date and was hospitalized for further evaluation of their emergent condition. - New Patient This patient is new to me today: Yes Date on this admission: 09/05/17 - Critical Care Critical Care patient: No Hospitalist Screening - Colonoscopy Questionnaire Colonoscopy Questionnaire: Colonoscopy Questionnaire - Patient: 50 - 75 years old and never had a screening colonoscopy: No History of colon or rectal polyps, or CA: No History of IBD, Crohn's disease or UC: No History of abdominal radiation therapy as a child: No - Relative: 1 with colon or rectal CA, or polyps at age 60 or younger: Unknown Colon or rectal CA diagnosed at age 45 or younger: Unknown Multiple relatives with colon or rectal CA: Unknown - Outcome: Screening Result: Negative Screen
[2017-09-05] MEDS ORDERED: cefTRIAXone SODIUM 1 GM VIAL ONE (07:22)
[2017-09-05] MEDS ORDERED: DEXTROSE 5%-WATER - 50 ML IVPB ONE (07:23)
[2017-09-05] MEDS: ASPIRIN 81 MG CHEWABLE TABLETS PO SCH (10:22)
[2017-09-05] MEDS: FLUTICASONE PROP 0.05% 16 GM NASAL SPRAY NS SCH ×2 (10:22→21:34)
[2017-09-05] MEDS: CLOPIDOGREL BISULFATE 75 MG TABLET (FP) PO SCH (10:23)
[2017-09-05] MEDS: metoPROLOL SUCCINATE 25 MG TAB.SR.24H (FP) PO SCH (10:23)
[2017-09-05] MEDS: BRIMONIDINE TARTRATE 0.1% OPHTHALMIC 5 ML BOTTLE OU SCH ×3 (10:23→21:34)
[2017-09-05 11:00] VITALS: BMI 23.4
[2017-09-05] MEDS ORDERED: PT OWN MED DRAWER 7, Y5N ONE ×2 (21:19→21:45)
[2017-09-05] MEDS: ROSUVASTATIN CA 20 MG TABLET (FP) PO SCH (22:05)
--- NOTE | 2017-09-05 22:24 | PN ---
Progress Note, Physician Chief Complaint: Weakness History of Present Illness: NAD, alert - Current Medication List Current Medications: Active Medications Aspirin (Asa -) 81 mg PO DAILY [facility] Last Admin: 09/05/17 10:22 Dose: 81 mg Brimonidine Tartrate (Alphagan P 0.1% -) 1 drop OU TID [facility] Last Admin: 09/05/17 21:34 Dose: 1 drop Clopidogrel Bisulfate (Plavix -) 75 mg PO DAILY [facility] Last Admin: 09/05/17 10:23 Dose: 75 mg Fluticasone Propionate (Flonase -) 1 spray NS BID [facility] Last Admin: 09/05/17 21:34 Dose: 1 spray Sodium Chloride (Normal Saline -) 1,000 mls @ 42 mls/hr IV ASDIR [facility] Last Admin: 09/05/17 07:53 Dose: 42 mls/hr Metoprolol Succinate (Toprol Xl -) 25 mg PO DAILY [facility] Last Admin: 09/05/17 10:23 Dose: 25 mg Rosuvastatin Calcium (Crestor -) 20 mg PO HS [facility] Last Admin: 09/05/17 22:05 Dose: 20 mg - Objective Vital Signs: Vital Signs Temperature 98.4 F 09/05/17 21:28 Pulse Rate 51 L 09/05/17 21:28 Respiratory Rate 16 09/05/17 21:28 Blood Pressure 135/63 09/05/17 21:28 O2 Sat by Pulse Oximetry (%) 99 09/05/17 20:08 Constitutional: Yes: Well Nourished, No Distress, Calm Cardiovascular: Yes: Regular Rate and Rhythm Respiratory: Yes: Regular Gastrointestinal: Yes: Normal Bowel Sounds, Soft Musculoskeletal: Yes: WNL Extremities: Yes: WNL Edema: No Peripheral Pulses WNL: Yes Neurological: Yes: Alert, Oriented Psychiatric: Yes: Alert, Oriented Labs: CBC, BMP 09/05/17 01:21 09/05/17 01:21 INR, PTT INR 0.97 (0.82-1.09) 09/05/17 01:21 Problem List - Problems (1) Weakness Assessment/Plan: Physical therapy -r/o TIA -neurology consult -check TSH,FT4, B12, Folate, RPR Code(s): R53.1 - WEAKNESS (2) TIA (transient ischemic attack) Assessment/Plan: -neurology consult -CT head unremarkable -MRI brain pending -labs unremarkable Code(s): G45.9 - TRANSIENT CEREBRAL ISCHEMIC ATTACK, UNSPECIFIED Qualifiers: Transient cerebral ischemia type: unspecified Qualified Code(s): G45.9 - Transient cerebral ischemic attack, unspecified Assessment/Plan see problem list
[2017-09-06] MEDS ORDERED: PT OWN MED DRAWER 7, Y5N ONE (05:50)
[2017-09-06] MEDS: BRIMONIDINE TARTRATE 0.1% OPHTHALMIC 5 ML BOTTLE OU SCH ×3 (05:54→21:41)
[2017-09-06 07:10] LABS: BASO % 0.7 % (0-2.0); EOS % 8.3 % (0-4.5); HEMATOCRIT 31.7 % (35.4-49); HEMOGLOBIN 10.3 GM/dL (11.7-16.9); LYMPH % 26.8 % (8-40); MCH 29.8 pg (25.7-33.7); MCHC 32.5 g/dl (32.0-35.9); MEAN CELL VOLUME 91.8 fl (80-96); MEAN PLT VOLUME 9.7 fl (7.5-11.1); MONO % 7.5 % (3.8-10.2); NEUT % 56.7 % (42.8-82.8); PLATELET COUNT 132 K/MM3 (134-434); RBC 3.45 M/mm3 (4.00-5.60); RDW 16.6 % (11.9-15.9); WHITE BLOOD COUNT 5.6 K/mm3 (4.0-10.0)
[2017-09-06] MEDS: ASPIRIN 81 MG CHEWABLE TABLETS PO SCH (09:48)
[2017-09-06] MEDS: metoPROLOL SUCCINATE 25 MG TAB.SR.24H (FP) PO SCH ×2 (09:48→09:54)
[2017-09-06] MEDS: CLOPIDOGREL BISULFATE 75 MG TABLET (FP) PO SCH (09:48)
[2017-09-06] MEDS: FLUTICASONE PROP 0.05% 16 GM NASAL SPRAY NS SCH ×2 (09:50→21:42)
--- NOTE | 2017-09-06 13:25 | CON.NEURO ---
Consult - Alcohol/Substance Use Hx Alcohol Use: No - Smoking History Smoking history: Never smoked Have you smoked in the past 12 months: No Aproximately how many cigarettes per day: 0 If you are a former smoker, when did you quit?: 2002 Home Medications - Allergies Allergies/Adverse Reactions: Allergies Allergy/AdvReac Type Severity Reaction Status Date / Time No Known Allergies Allergy Verified 09/04/17 22:39 - Home Medications Home Medications: Ambulatory Orders Aspirin [ASA -] 81 mg PO DAILY 10/26/16 Brimonidine Tartrate [Alphagan P 0.1% -] 1 drop OU TID 10/26/16 Clopidogrel Bisulfate [Plavix -] 75 mg PO DAILY 10/26/16 Fluticasone Prop 0.05% Nasal [Flonase -] 1 - 2 spray NS BID 10/26/16 Metoprolol Succinate [Toprol XL -] 25 mg PO DAILY 10/26/16 Rosuvastatin [Crestor -] 20 mg PO DAILY 10/26/16 Azithromycin [Zithromax -] 250 mg PO DAILY #4 tab 06/12/17 Azithromycin [Zithromax -] 250 mg PO DAILY #4 tab 06/12/17 Benzonatate [Tessalon Pearls -] 100 mg PO TID #21 capsule 06/12/17 Physical Exam-Neuro Vital Signs: Vital Signs Temperature 97.9 F 09/06/17 06:00 Pulse Rate 45 L 09/06/17 06:00 Respiratory Rate 16 09/06/17 06:00 Blood Pressure 159/64 09/06/17 06:00 O2 Sat by Pulse Oximetry (%) 99 09/05/17 20:08 Labs: CBC, BMP 09/06/17 06:00 INR, PTT INR 0.97 (0.82-1.09) 09/05/17 01:21 Imaging - Results Cat Scan: Report Reviewed Assessment/Plan cc right sided numbness adn right leg weakness, resolved HPI 86 year old male hsitory of HTN, HLD, CHF, CAD S/P CABG .Patient takes apsirin and statin and crestor 20 mg once a day. He used to smoker. He has these transient symptoms and those symptoms are resovled and now he is back to baseline. He denies any other focal neurological symptoms. PMH HTN, HLD, CHF, CT s/p stent x 4, CABG x 3, aortic aneurysm repair, prostate CA, urinary incontinence Past Surgical History CABG 3-4 years ago Aneurysm repair 2010 SH,ROS, FH reviwed in chart HOME MEDICATIONS: 3 Medication Instructions Recorded Aspirin [ASA -] 81 mg PO DAILY 10/26/16 Brimonidine Tartrate [Alphagan P 1 drop OU TID 10/26/16 0.1% -] Clopidogrel Bisulfate [Plavix -] 75 mg PO DAILY 10/26/16 Fluticasone Prop 0.05% Nasal 1 - 2 spray NS BID 10/26/16 [Flonase -] Metoprolol Succinate [Toprol XL -] 25 mg PO DAILY 10/26/16 Rosuvastatin [Crestor -] 20 mg PO DAILY 10/26/16 Azithromycin [Zithromax -] 250 mg PO DAILY #4 tab 06/12/17 Azithromycin [Zithromax -] 250 mg PO DAILY #4 tab 06/12/17 Benzonatate [Tessalon Pearls -] 100 mg PO TID #21 capsule 06/12/17 Neurological Examination Alert able to follow command , speech is normal eomi, pupils is reactive no face asymmetry moving all extremity ct head normal Assessment- Left mca tia, risk factor, htn, borderline DM, Previous stroke, cad , s/p cabg, he was on aspirin , plavix and crestor 20 mg once a day Plan- continue aspirin , plavix and crestor - life style modifications mri ofbrain and carotid ultrasound Thanking you so much Wilver Fallon MD
[2017-09-06 13:40] LABS: GLUCOSE,RANDOM 85 mg/dL (74-106)
[2017-09-06 13:41] LABS: BLOOD UREA NITROGEN 24 mg/dL (7-18); CREATININE 1.2 mg/dL (0.7-1.3); SODIUM 145 mmol/L (136-145)
[2017-09-06 13:43] LABS: CHLORIDE 112 mmol/L (98-107); POTASSIUM 5.5 mmol/L (3.5-5.1)
[2017-09-06 13:44] LABS: ANION GAP 5 (8-16); CALCIUM 9.2 mg/dL (8.5-10.1); CO2 28 mmol/L (21-32); PHOSPHOROUS 3.6 mg/dL (2.5-4.9)
--- NOTE | 2017-09-06 18:48 | PN ---
Progress Note, Physician Chief Complaint: Weakness History of Present Illness: NAD, alert Going for U/S carotid MRi pending Neurology consult appreciated -Labs show hypothyroidism -Vitamin B 12 deficiency - Current Medication List Current Medications: Active Medications Aspirin (Asa -) 81 mg PO DAILY [facility] Last Admin: 09/06/17 09:48 Dose: 81 mg Brimonidine Tartrate (Alphagan P 0.1% -) 1 drop OU TID [facility] Last Admin: 09/06/17 15:21 Dose: 1 drop Clopidogrel Bisulfate (Plavix -) 75 mg PO DAILY [facility] Last Admin: 09/06/17 09:48 Dose: 75 mg Fluticasone Propionate (Flonase -) 1 spray NS BID [facility] Last Admin: 09/06/17 09:50 Dose: 1 spray Sodium Chloride (Normal Saline -) 1,000 mls @ 42 mls/hr IV ASDIR [facility] Last Admin: 09/05/17 07:53 Dose: 42 mls/hr Levothyroxine Sodium (Synthroid -) 25 mcg PO DAILY@0700 [facility] Metoprolol Succinate (Toprol Xl -) 25 mg PO DAILY [facility] Last Admin: 09/06/17 09:54 Dose: Not Given Rosuvastatin Calcium (Crestor -) 20 mg PO HS [facility] Last Admin: 09/05/17 22:05 Dose: 20 mg - Objective Vital Signs: Vital Signs Temperature 97.9 F 09/06/17 06:00 Pulse Rate 45 L 09/06/17 06:00 Respiratory Rate 16 09/06/17 06:00 Blood Pressure 159/64 09/06/17 06:00 O2 Sat by Pulse Oximetry (%) 99 09/05/17 20:08 Constitutional: Yes: Well Nourished, No Distress, Calm Cardiovascular: Yes: Regular Rate and Rhythm Respiratory: Yes: Regular Gastrointestinal: Yes: Normal Bowel Sounds, Soft Musculoskeletal: Yes: Muscle Weakness Extremities: Yes: WNL Edema: No Peripheral Pulses WNL: Yes Neurological: Yes: Alert, Oriented Psychiatric: Yes: Alert, Oriented Labs: CBC, BMP 09/06/17 06:00 09/06/17 06:00 INR, PTT INR 0.97 (0.82-1.09) 09/05/17 01:21 Problem List - Problems (1) Weakness Assessment/Plan: Physical therapy -r/o TIA -neurology consult -check TSH,FT4- hypothyroidism -B12 deficiency- vit b 12 injections -Folate pending -RPR negative Code(s): R53.1 - WEAKNESS (2) TIA (transient ischemic attack) Assessment/Plan: -neurology consult -CT head unremarkable -MRI brain pending -going for u/s carotid -labs unremarkable Code(s): G45.9 - TRANSIENT CEREBRAL ISCHEMIC ATTACK, UNSPECIFIED Qualifiers: Transient cerebral ischemia type: unspecified Qualified Code(s): G45.9 - Transient cerebral ischemic attack, unspecified (3) Hypothyroidism Assessment/Plan: -start levothyroxine 25 mg po daily Code(s): E03.9 - HYPOTHYROIDISM, UNSPECIFIED (4) Vitamin B 12 deficiency Assessment/Plan: -Vit B 12 injections daily while in the hospital Code(s): E53.8 - DEFICIENCY OF OTHER SPECIFIED B GROUP VITAMINS Assessment/Plan see problem list If all the work up is negative, he's is very likely symptomatic 2/2 to hypothyroidism and vit B 12 deficiency as B 12 levels below 400 have been shown to produce Neuropsychiatric symptoms
[2017-09-06] MEDS: ROSUVASTATIN CA 20 MG TABLET (FP) PO SCH (21:41)
--- NOTE | 2017-09-06 21:44 | EKG ---
Test Reason : Blood Pressure : / mmHG Vent. Rate : 053 BPM Atrial Rate : 053 BPM P-R Int : 174 ms QRS Dur : 090 ms QT Int : 478 ms P-R-T Axes : 058 -09 060 degrees QTc Int : 448 ms SINUS BRADYCARDIA NONSPECIFIC T WAVE ABNORMALITY ABNORMAL ECG Confirmed by CONNOR VALADEZ MD ([id number]) on 09/06/2017 9:44:04 PM Referred By: Confirmed By:CONNOR VALADEZ MD
[2017-09-07] MEDS ORDERED: METOPROLOL TARTRATE 25 MG TABLET (FP) PO ONE (02:19)
[2017-09-07] MEDS: SODIUM CHLORIDE 1,000 ML IV SCH (02:24)
[2017-09-07] MEDS: BRIMONIDINE TARTRATE 0.1% OPHTHALMIC 5 ML BOTTLE OU SCH ×2 (05:12→13:26)
[2017-09-07] MEDS ORDERED: PT OWN MED DRAWER 7, Y5N ONE ×2 (05:45→13:08)
[2017-09-07 06:34] LABS: BASO % 0.5 % (0-2.0); EOS % 4.1 % (0-4.5); HEMATOCRIT 34.5 % (35.4-49); HEMOGLOBIN 11.4 GM/dL (11.7-16.9); LYMPH % 10.6 % (8-40); MCHC 32.9 g/dl (32.0-35.9); MEAN CELL VOLUME 91.2 fl (80-96); MEAN PLT VOLUME 10.2 fl (7.5-11.1); MONO % 10.6 % (3.8-10.2); NEUT % 74.2 % (42.8-82.8); PLATELET COUNT 165 K/MM3 (134-434); RBC 3.79 M/mm3 (4.00-5.60); RDW 16.4 % (11.9-15.9)
[2017-09-07 06:59] LABS: ALBUMIN 3.3 g/dl (3.4-5.0); ANION GAP 9 (8-16); BLOOD UREA NITROGEN 29 mg/dL (7-18); CALCIUM 8.6 mg/dL (8.5-10.1); CHLORIDE 108 mmol/L (98-107); CO2 25 mmol/L (21-32); GLUCOSE,RANDOM 101 mg/dL (74-106); POTASSIUM 5.7 mmol/L (3.5-5.1); SODIUM 142 mmol/L (136-145)
[2017-09-07] MEDS ORDERED: LEVOTHYROXINE NA 25 MCG TABLET (FP) PO SCH (07:00)
[2017-09-07 07:09] LABS: HDL CHOLESTEROL 53 mg/dL (40-60); LDL CHOLESTEROL (ONLY SJRH) 94 mg/dL (5-100)
[2017-09-07 07:14] LABS: ALK PHOS 73 U/L (45-117); BILIRUBIN,TOTAL 0.4 mg/dL (0.2-1.0); CHOLESTEROL 168 mg/dL (50-200); CREATININE 1.2 mg/dL (0.7-1.3); SGOT/AST 18 U/L (15-37); SGPT/ALT 17 U/L (12-78); TOT PROT 6.8 g/dl (6.4-8.2); TRIGLYCERIDES 111 mg/dL (35-160)
--- NOTE | 2017-09-07 08:30 | PN ---
Progress Note, Physician - Current Medication List Current Medications: Active Medications Aspirin (Asa -) 81 mg PO DAILY [facility] Last Admin: 09/06/17 09:48 Dose: 81 mg Brimonidine Tartrate (Alphagan P 0.1% -) 1 drop OU TID [facility] Last Admin: 09/07/17 05:12 Dose: 1 drop Clopidogrel Bisulfate (Plavix -) 75 mg PO DAILY [facility] Last Admin: 09/06/17 09:48 Dose: 75 mg Fluticasone Propionate (Flonase -) 1 spray NS BID [facility] Last Admin: 09/06/17 21:42 Dose: 1 spray Sodium Chloride (Normal Saline -) 1,000 mls @ 42 mls/hr IV ASDIR [facility] Last Admin: 09/07/17 02:24 Dose: Not Given Levothyroxine Sodium (Synthroid -) 25 mcg PO DAILY@0700 [facility] Last Admin: 09/07/17 06:05 Dose: 25 mcg Metoprolol Succinate (Toprol Xl -) 25 mg PO DAILY [facility] Last Admin: 09/06/17 09:54 Dose: Not Given Rosuvastatin Calcium (Crestor -) 20 mg PO HS [facility] Last Admin: 09/06/17 21:41 Dose: 20 mg - Objective Vital Signs: Vital Signs Temperature 98.0 F 09/07/17 05:38 Pulse Rate 62 09/07/17 05:38 Respiratory Rate 18 09/07/17 02:00 Blood Pressure 155/69 09/07/17 05:38 O2 Sat by Pulse Oximetry (%) 98 09/07/17 02:00 Cardiovascular: Yes: Regular Rate and Rhythm Respiratory: Yes: Regular, CTA Bilaterally Gastrointestinal: Yes: Normal Bowel Sounds, Soft Labs: CBC, BMP 09/07/17 06:10 09/07/17 06:10 INR, PTT INR 0.97 (0.82-1.09) 09/05/17 01:21 Assessment/Plan Problems (1) Weakness Assessment/Plan: Physical therapy -r/o TIA -neurology consult -check TSH,FT4- hypothyroidism -B12 deficiency- vit b 12 injections -Folate pending -RPR negative Code(s): R53.1 - WEAKNESS (2) TIA (transient ischemic attack) Assessment/Plan: -neurology consult -CT head unremarkable -MRI brain pending -going for u/s carotid -labs unremarkable Code(s): G45.9 - TRANSIENT CEREBRAL ISCHEMIC ATTACK, UNSPECIFIED Qualifiers: Transient cerebral ischemia type: unspecified Qualified Code(s): G45.9 - Transient cerebral ischemic attack, unspecified (3) Hypothyroidism Assessment/Plan: -start levothyroxine 25 mg po daily Laboratory Tests 09/06/17 06:00 Vitamin B12 273 TSH 4.55 H Code(s): E03.9 - HYPOTHYROIDISM, UNSPECIFIED (4) Vitamin B 12 deficiency Assessment/Plan: -Vit B 12 injections daily while in the hospital Code(s): E53.8 - DEFICIENCY OF OTHER SPECIFIED B GROUP VITAMINS Assessment/Plan see problem list If all the work up is negative, he's is very likely symptomatic 2/2 to hypothyroidism and vit B 12 deficiency as B 12 levels below 400 have been shown to produce Neuropsychiatric symptoms
[2017-09-07] MEDS: CLOPIDOGREL BISULFATE 75 MG TABLET (FP) PO SCH (09:34)
[2017-09-07] MEDS: FLUTICASONE PROP 0.05% 16 GM NASAL SPRAY NS SCH (09:34)
[2017-09-07] MEDS: ASPIRIN 81 MG CHEWABLE TABLETS PO SCH (09:34)
--- NOTE | 2017-09-07 10:21 | PN ---
Progress Note (short form) - Note Progress Note: HPI 86 year old male hsitory of HTN, HLD, CHF, CAD S/P CABG .Patient takes apsirin and statin and crestor 20 mg once a day. He used to smoker. He has these transient symptoms and those symptoms are resovled and now he is back to baseline. He denies any other focal neurological symptoms. his syptoms resolved , now he is back to baseline. NO new symptoms since yesterday PMH HTN, HLD, CHF, [place] s/p stent x 4, CABG x 3, aortic aneurysm repair, prostate CA, urinary incontinence Past Surgical History CABG 3-4 years ago Aneurysm repair 2010 SH,ROS, FH reviwed in chart Neurological Examination Alert able to follow command , speech is normal eomi, pupils is reactive no face asymmetry moving all extremity ct head normal carotid ultrasound unremarkable mri of brain unremarkable Assessment- Left mca tia, risk factor, htn, borderline DM, Previous stroke, cad , s/p cabg, he was on aspirin , plavix and crestor 20 mg once a day Plan- continue aspirin , plavix and crestor - continue current treatment, waiting for mri Thanking you so much Wilver Fallon MD
[2017-09-07] MEDS: metoPROLOL SUCCINATE 25 MG TAB.SR.24H (FP) PO SCH (10:40)
--- NOTE | 2017-09-07 10:52 | CONS ---
DATE OF CONSULTATION: 09/07/2017 HISTORY OF PRESENT ILLNESS: The patient is an 86-year-old man with an extensive cardiac history including coronary artery disease status post coronary artery bypass graft, congestive heart failure who developed right facial numbness and right lower extremity weakness. The patient on admission underwent a CT scan of the head, which showed no acute intracranial pathology. The patient also underwent carotid ultrasound, which showed no hemodynamically significant stenosis. Currently, the patient is complaining of left buttock or back pain but no complaints of any weakness. The patient was evaluated by Neurology who felt that he had a left MCA TIA. Blood work is fairly stable as of today. WBCs 9, hemoglobin 11.4, platelet count 165, chemistry does show an elevated potassium, however, of 5.7 with BUN elevated at 29, creatinine 1.2, and low albumin 3.3. TSH was elevated at 4.55 and free T4 was low. Serum B12 is also borderline at 273 and folate normal 7. PAST MEDICAL HISTORY: As above. Also history of emphysema. He is a former tobacco user. History of hypertension, hyperlipidemia, aortic aneurysm repair, prostate cancer. The aneurysm was repaired in 2010. PAST SURGICAL HISTORY: As above. SOCIAL HISTORY: Per the patient, he was ambulating without assistive device. Lives alone in an apartment but has had this pain in his left lower back or buttock for more than 5 months. REVIEW OF SYSTEMS: No lightheadedness, dizziness. No blurry vision or double vision. No headache. No nausea, vomiting, difficulty swallowing, difficulty chewing. No cough with swallow. No chest pain or shortness of breath at rest. No abdominal discomfort. No bowel or bladder incontinence. Some back discomfort. No lower extremity weakness, numbness, or tingling that is new. No upper extremity numbness, tingling, or weakness. No rash. PHYSICAL EXAMINATION: General: The patient is seen lying in bed. He is in no acute distress. HEENT: Normocephalic and atraumatic. His extraocular muscles appear full. He has no obvious facial weakness. No oral ulcers. Neck: Supple. Extremities: Without any pitting edema or calf tenderness. Neuromuscular: He is awake, alert, oriented x3. Cranial nerves 2-12 appear grossly intact. He has got good strength and range in the upper and lower extremities but tenderness in the left gluteal musculature. Normal sensation. No advanced arthritic changes in the upper or lower extremities. Good joint stability. Skin: No skin rash or heel breakdown. IMPRESSION: 1. Deficits in mobility, activities of daily living. 2. Status post facial numbness and right lower extremity weakness, possible middle cerebral artery transient ischemic attack, resolved. 3. Hyperkalemia. 4. Hyperthyroidism. 5. Left lower back or buttock pain, which is chronic. 6. Coronary artery disease status post coronary artery bypass graft, congestive heart failure, hypertension. 7. History of emphysema, former tobacco user. 8. Hypoalbuminemia. High risk for decubitus ulceration. PLAN/SUGGEST: 1. Physical therapy for mobilization including bed mobility, transfers, gait as appropriate. 2. Out of bed to chair when appropriate. 3. Cardiac precaution. 4. Safety fall precaution. 5. Follow up with primary care regarding potassium level. 6. Skin precautions. Avoid heel and sacral pressure. Monitor for erythema and breakdown. 7. Workup as an outpatient for etiology of back pain if not already done. Thank you for this referral. MAXI CALLES M.D. [id number]
[2017-09-07 13:09] VITALS: BP 145/86; PULSE 89; TEMP 98.1
--- NOTE | 2017-09-07 21:01 | HOSP ---
Physical Examination Vital Signs: Vital Signs Temperature 98.1 F 09/07/17 13:08 Pulse Rate 89 09/07/17 13:08 Respiratory Rate 18 09/07/17 13:08 Blood Pressure 145/86 09/07/17 13:08 O2 Sat by Pulse Oximetry (%) 98 09/07/17 10:00 Labs: CBC, BMP 09/07/17 06:10 09/07/17 06:10 Hospitalist Encounter Assessment: called by nurse who reported pt wants to leave. Threatening to hurt the nurses if he isn't allowed to go home. Pt is alert and oriented x 3. Nurse attempted to discuss risk/benefits with pt via [employer] liaison [employer] phone, but pt hung up phone. Risk/benefits including but not limited to , permanent disability and further decline discussed with pt via daughter who is [employer] liaison officer. Advised daughter to call Dr. Lucia in AM for further follow up care. Given number of neurologist to call and schedule an appointment. Pt signed AMA paper and left department with antalgic but steady gait.
--- NOTE | 2017-09-08 00:09 | CONSULT ---
Consult Consult Specialty:: endocrine Referred by:: tacho long md Reason for Consultation:: hypothyroidism - History of Present Illness Chief Complaint: weakness History of Present Illness: 86 year old male with a past medical history significant for HTN, HLD, CHF, CAD s/p CABG who presented to the ED with right lower extremity weakness and facial numbness which has resolved. He reports the facial numbness has been intermittent over the past couple of months. He has had weakness,denies cold intolerance or history of weight gain,refusing to remain in hospital,despite daughter attempts and nursing to remain for observation in hospital - History Source History Provided By: Patient - Alcohol/Substance Use Hx Alcohol Use: No - Smoking History Smoking history: Never smoked Have you smoked in the past 12 months: No Aproximately how many cigarettes per day: 0 If you are a former smoker, when did you quit?: 2002 Home Medications - Allergies Allergies/Adverse Reactions: Allergies Allergy/AdvReac Type Severity Reaction Status Date / Time No Known Allergies Allergy Verified 09/04/17 22:39 - Home Medications Home Medications: Ambulatory Orders Aspirin [ASA -] 81 mg PO DAILY 10/26/16 Brimonidine Tartrate [Alphagan P 0.1% -] 1 drop OU TID 10/26/16 Clopidogrel Bisulfate [Plavix -] 75 mg PO DAILY 10/26/16 Fluticasone Prop 0.05% Nasal [Flonase -] 1 - 2 spray NS BID 10/26/16 Metoprolol Succinate [Toprol XL -] 25 mg PO DAILY 10/26/16 Rosuvastatin [Crestor -] 20 mg PO DAILY 10/26/16 Azithromycin [Zithromax -] 250 mg PO DAILY #4 tab 06/12/17 Azithromycin [Zithromax -] 250 mg PO DAILY #4 tab 06/12/17 Benzonatate [Tessalon Pearls -] 100 mg PO TID #21 capsule 06/12/17 Review of Systems - Review of Systems Constitutional: reports: Weakness Eyes: reports: No Symptoms HENT: reports: No Symptoms Neck: reports: No Symptoms Cardiovascular: reports: No Symptoms Respiratory: reports: No Symptoms Gastrointestinal: reports: Constipation Genitourinary: reports: No Symptoms Breasts: reports: No Symptoms Reported Musculoskeletal: reports: Muscle Pain, Muscle Cramps, Muscle Weakness Endocrine: reports: No Symptoms Physical Exam Vital Signs: Vital Signs Temperature 98.1 F 09/07/17 13:08 Pulse Rate 89 09/07/17 13:08 Respiratory Rate 18 09/07/17 13:08 Blood Pressure 145/86 09/07/17 13:08 O2 Sat by Pulse Oximetry (%) 98 09/07/17 10:00 Constitutional: Yes: Anxious Eyes: Yes: EOM Intact HENT: Yes: Normocephalic Neck: Yes: Trachea Midline Cardiovascular: Yes: Regular Rate and Rhythm Respiratory: Yes: CTA Bilaterally Gastrointestinal: Yes: Normal Bowel Sounds ...Rectal Exam: Yes: Deferred Renal/: Yes: WNL Breast(s): Yes: WNL Musculoskeletal: Yes: Muscle Weakness Extremities: Yes: WNL Integumentary: Yes: WNL Neurological: Yes: Alert, Oriented Labs: CBC, BMP 09/07/17 06:10 09/07/17 06:10 Problem List - Problems (1) COPD exacerbation Code(s): J44.1 - CHRONIC OBSTRUCTIVE PULMONARY DISEASE W (ACUTE) EXACERBATION (2) Hypothyroidism Code(s): E03.9 - HYPOTHYROIDISM, UNSPECIFIED (3) Sinusitis, acute Code(s): J01.90 - ACUTE SINUSITIS, UNSPECIFIED Qualifiers: Sinusitis location: sphenoidal Recurrence: not specified as recurrent Qualified Code(s): J01.30 - Acute sphenoidal sinusitis, unspecified (4) TIA (transient ischemic attack) Code(s): G45.9 - TRANSIENT CEREBRAL ISCHEMIC ATTACK, UNSPECIFIED Qualifiers: Transient cerebral ischemia type: unspecified Qualified Code(s): G45.9 - Transient cerebral ischemic attack, unspecified (5) Vitamin B 12 deficiency Code(s): E53.8 - DEFICIENCY OF OTHER SPECIFIED B GROUP VITAMINS Assessment/Plan hypothyroidism tia b12 deficiency hypertension Abnormal Lab Results 09/07/17 09/07/17 06:10 06:10 RBC 3.79 L Hgb 11.4 L D Hct 34.5 L RDW 16.4 H Monocytes % 10.6 H Potassium 5.7 H Chloride 108 H BUN 29 H D Albumin 3.3 L Laboratory Results - last 24 hr 09/07/17 09/07/17 06:10 06:10 WBC 9.0 D RBC 3.79 L Hgb 11.4 L D Hct 34.5 L MCV 91.2 MCH 30.0 MCHC 32.9 RDW 16.4 H Plt Count 165 D MPV 10.2 Neutrophils % 74.2 D Lymphocytes % 10.6 D Monocytes % 10.6 H Eosinophils % 4.1 Basophils % 0.5 Sodium 142 Potassium 5.7 H Chloride 108 H Carbon Dioxide 25 Anion Gap 9 BUN 29 H D Creatinine 1.2 Creat Clearance w eGFR 57.68 Random Glucose 101 Calcium 8.6 Total Bilirubin 0.4 D AST 18 ALT 17 Alkaline Phosphatase 73 Total Protein 6.8 Albumin 3.3 L Triglycerides 111 Cholesterol 168 Total LDL Cholesterol 94 HDL Cholesterol 53 Serum Folate 7 plaN synthroid 25mcg daily b12 replacement follow up outpatient tft and b12 level
== END 2017-09-07 20:45 | disposition left against medical advice (07) ==
LOC: JER 22:20 → INTOOBSV 09-05 04:02 → JERBED 09-05 04:02 → UNDOADMOB 09-05 04:02 → UNDOADMIN 09-05 04:06 → JERBED 09-05 04:06 → J2W 09-05 06:16
PROVIDERS: ADMIT Internal Medicine; ATTEND Family Medicine
DX: G45.9 Transient cerebral ischemic attack, unspecified (principal); J01.30 Acute sphenoidal sinusitis, unspecified; J44.1 Chronic obstructive pulmonary disease with (acute) exacerbation; I10 Essential (primary) hypertension; I50.9 Heart failure, unspecified; I25.2 Old myocardial infarction; I25.10 Atherosclerotic heart disease of native coronary artery without angina pectoris; E78.5 Hyperlipidemia, unspecified; E03.9 Hypothyroidism, unspecified; E53.8 Deficiency of other specified B group vitamins; R53.1 Weakness; R73.03 Prediabetes; Z95.2 Presence of prosthetic heart valve; Z87.442 Personal history of urinary calculi; Z85.46 Personal history of malignant neoplasm of prostate; Z79.82 Long term (current) use of aspirin; Z86.79 Personal history of other diseases of the circulatory system; Z95.1 Presence of aortocoronary bypass graft; Z95.5 Presence of coronary angioplasty implant and graft; Z87.891 Personal history of nicotine dependence
CPT/HCPCS: 36415; 70450-TC; 70551-TC; 71045-TC-FY; 72100-TC-FY; 73502-TC-LT-FY; 73523-TC-FY; 80048; 80053; 80061; 81003; 81015; 82550; 82607; 82746; 83721; 83735; 84100; 84439; 84443; 84484; 85025; 85610; 86593; 86850; 86870; 86900; 86901; 86902; 87086; 93005; 93010; 93880-TC; 96365; 99285-25; G0378; J7030

== ENCOUNTER 2019-01-13 06:34 | Day surgery (SDC) | payer OTHER ==
[2019-01-13 07:39] VITALS: BMI 23.3
[2019-01-13 08:52] VITALS: TEMP 98.1
[2019-01-13 10:53] VITALS: BP 163/81; PULSE 52
--- NOTE | 2019-01-14 15:52 | PATH ---
Surgical Pathology Report Patient Name: HARRIETT MESA [facility]. Rec. #: [id number] /Age/Gender: 1930 (Age: 88) / M Account: [id number] Location: U-ENDOSCOPY Taken: 01/13/2019 Received: 01/13/2019 Reported: 01/14/2019 Physicians: Heraclio Abel M.D. Specimen(s) Received A: DUODENAL BULB B: STOMACH Clinical History Anemia, rectal bleeding Postoperative diagnosis: Gastroduodenitis, diverticulosis, radiation proctitis Final Diagnosis A. DUODENAL BULB, INFLAMMATION, BIOPSY: DUODENAL MUCOSA WITH MODERATE TO SEVERE ACUTE AND CHRONIC DUODENITIS. B. STOMACH, ERYTHEMA, BIOPSY: GASTRIC BODY MUCOSA WITH MILD CHRONIC GASTRITIS. IMMUNOHISTOCHEMICAL STAIN FOR H. PYLORI IS NEGATIVE. Electronically Signed Phoebe Orantes M.D. Gross Description A. Received in formalin, labeled "biopsy duodenal bulb inflammation" are 2 laboy, irregular portions of soft tissue averaging 0.2 cm. in greatest dimension. The specimens are submitted in toto in one cassette. B. Received in formalin, labeled "biopsy erythema of stomach" are 2 laboy, irregular portions of soft tissue averaging 0.3 cm. in greatest dimension. The specimens are submitted in toto in one cassette. 01/13/201901/13/2019
== END 2019-01-13 09:55 | disposition home or self-care (01) ==
LOC: JASU-ENDO 06:34
PROVIDERS: ATTEND Internal Medicine Gastroenterology
PROC: 0DB98ZX Excision of Duodenum, Via Natural or Artificial Opening Endoscopic, Diagnostic (ICD-10-PCS; 2019-01-13)
PROC: 0DB68ZX Excision of Stomach, Via Natural or Artificial Opening Endoscopic, Diagnostic (ICD-10-PCS; 2019-01-13)
PROC: 0DJD8ZZ Inspection of Lower Intestinal Tract, Via Natural or Artificial Opening Endoscopic (ICD-10-PCS; principal; 2019-01-13 09:45)
DX: D64.9 Anemia, unspecified (principal); K62.5 Hemorrhage of anus and rectum; K57.30 Diverticulosis of large intestine without perforation or abscess without bleeding; K62.7 Radiation proctitis; C61 Malignant neoplasm of prostate; K29.80 Duodenitis without bleeding; K29.50 Unspecified chronic gastritis without bleeding
CPT/HCPCS: 88305-TC; 88342-TC

== ENCOUNTER 2019-05-17 14:15 | Inpatient (IN) | payer OTHER ==
[2019-05-17] MEDS ORDERED: SODIUM CHLORIDE 0.9% 500 ML INFUS.BAG IV ONE (15:59)
--- NOTE | 2019-05-17 16:03 | PDOC ---
History of Present Illness - General Chief Complaint: Diarrhea Stated Complaint: DIZZINESS Time Seen by Provider: 05/17/19 15:38 - History of Present Illness Initial Comments: Andre King is an 88yo man with a PMH of HTN, HLD, CHF, CAD s/p CABG, hypothyroidism who presents with diarrhea for more than one month. His daughter , at bedside, is available to translate (from Czech) and provide additional history. Mr King started to have frequent watery diarrhea one month ago. His daughter took him to [facility], where he was admitted for several days and treated for a bacterial infection. Neither is sure what type of infection he was diagnosed with, and they are not sure whether he had any stool tests completed. The pt was discharged home after 3-4 days and had continued diarrhea at home. His daughter took him to the PMD, who has had him taking Flagyl TID for several weeks. She reports no improvement in his symptoms. Mr King agrees, saying that every time he eats or drinks anything he has diarrhea almost immediately. He denies any fevers/chills, abdominal pain, vomiting, melena, hematochezia, or other recent symptoms. The daughter brought him to the ED today because she called the PMD, reported that her father has started to become weak from the diarrhea, and was instructed to bring him to the hospital. The daughter states that he lives alone, and she has become afraid that he is going to have a fall due to the worsening weakness. Past History - Past Medical History Allergies/Adverse Reactions: Allergies Allergy/AdvReac Type Severity Reaction Status Date / Time No Known Allergies Allergy Verified 05/17/19 14:21 Home Medications: Ambulatory Orders Metoprolol Succinate [Toprol XL -] 25 mg PO DAILY 10/26/16 Rosuvastatin [Crestor -] 20 mg PO DAILY 10/26/16 Levothyroxine [Synthroid -] 25 mcg PO DAILY 01/12/19 Aspirin/Dipyridamole [Aggrenox -] 1 combo PO BID 05/17/19 Dexlansoprazole [Dexilant] 60 mg PO DAILY 05/17/19 metroNIDAZOLE [Flagyl -] 250 mg PO TID 05/17/19 Anemia: Yes Asthma: No Cancer: Yes (PROSTATE) Cardiac Disorders: Yes (OK: 2002) CVA: No COPD: Yes (EMPHYSEMA) CHF: No Diabetes: No HTN: Yes Hypercholesterolemia: Yes Kidney Stones: Yes Seizures: No - Surgical History Cardiac Surgery: Yes (STENTS X 3: 2002; VALVE REPLACEMENT X 2: 11/2011) - Immunization History Immunization Up to Date: Yes - Psycho Social/Smoking Cessation Hx Smoking Status: No (QUIT 2002) Smoking History: Former smoker Have you smoked in the past 12 months: No Number of Cigarettes Smoked Daily: 0 If you are a former smoker, when did you quit?: 1999 Information on smoking cessation initiated: No Hx Alcohol Use: No Drug/Substance Use Hx: No Substance Use Type: None Hx Substance Use Treatment: No Review of Systems - Review of Systems Comments:: General: No fevers, no chills, no weight or appetite change, no malaise HEENT: No changes in vision, no changes in hearing, no congestion, no sore throat CV: No chest pain, no palpitations, no LE edema Pulm: No SOB, no cough, no wheezing GI: No nausea or vomiting, +diarrhea, no melena : No frequency, no urgency, no dysuria Musc: No back pain, no joint swelling, no recent injury Skin: No rash, no lesions, no erythema Endo: No excessive thirst, no heat/cold intolerance Heme: No unusual bruising or bleeding, no swollen glands Neuro: No syncope, no numbness/tingling, no focal weakness Vasc: No claudication Psych: No recent change in mood, no SI or HI *Physical Exam - Vital Signs Last Vital Signs Temp Pulse Resp BP Pulse Ox 97.3 F L 55 L 18 120/71 100 05/17/19 15:33 05/17/19 14:19 05/17/19 14:19 05/17/19 14:19 05/17/19 14:19 - Physical Exam General: Comfortable, no acute distress HEENT: Atraumatic, PERRL, EOMI, MMM, voice normal, normal neck ROM Cards: RRR, no murmur appreciated Pulm: Comfortable on room air, clear to auscultation bilaterally Abd: Soft, nontender, nondistended Rectal: Normal tone, no blood noted, no perianal lesions Ext: Atraumatic. No LE edema. ROM intact. Strength 5/5 and equal bilaterally Vasc: Extremities WWP Skin: Normal color, no rashes or lesions Neuro: A&Ox3, CN grossly intact, normal speech, motor/sensory grossly intact and symmetric Psych: Mood appropriate to situation ED Treatment Course - LABORATORY CBC & Chemistry Diagram: 05/17/19 16:20 05/17/19 16:20 Medical Decision Making - Medical Decision Making 05/17/19 16:00 Andre King is an 88yo man with a PMH of HTN, HLD, CHF, CAD s/p CABG, hypothyroidism who presents with 7-8 episodes of diarrhea per day for more than one month despite treatment with metronidazole. His daughter reports that he has become increasingly weak and has fallen at home. - Unclear history, benign physical exam, difficult to narrow diagnosis. No injury apparent on exam - CBC, CMP, UA to evaluate hydration status, electrolyte abnormalities, s/s of infection including c-diff. Cdiff and stool culture ordered - 1L bolus 05/17/19 18:01 - Unable to reach [facility] or [facility] for more information - Labs reviewed. Notable for BUN increased to 47 from 29, Cr 1.8 from baseline 1.2/1.4 - Pt reports that he has attempted to decrease his PO intake as he feels it worsens his diarrhea. PATRICK likely secondary to dehydration - Now reporting abdominal discomfort to Dr Rose. CT abd/pelvis ordered for evaluation. 05/17/19 19:02 - CT with large right kidney mass. Official read still pending 05/17/19 21:06 - CT read w/ no acute changes compared to prior. Notes diverticulosis. Marked right hydronephrosis unchanged from previous, mutliple right renal cysts. No acute pathology - Will admit for IV fluids, PATRICK 05/17/19 21:48 - Sign out given to overnight [employer]. Will admit to med/surg on Dr Lyn's service Discussed with Jannette Rose and Betzaida Muro PGY2 Discharge - Discharge Information Problems reviewed: Yes Clinical Impression/Diagnosis: PATRICK (acute kidney injury) Diarrhea Qualifiers: Diarrhea type: unspecified type Qualified Code(s): R19.7 - Diarrhea, unspecified - Admission Yes - Follow up/Referral Referrals: Jordy Lucia MD, [Primary Care Provider] - - Patient Discharge Instructions - Post Discharge Activity
[2019-05-17 16:34] LABS: BASO % 0.5 % (0-2.0); EOS % 2.8 % (0-4.5); HEMATOCRIT 32.8 % (35.4-49); HEMOGLOBIN 10.6 GM/dL (11.7-16.9); LYMPH % 23.4 % (8-40); MCH 30.3 pg (25.7-33.7); MCHC 32.4 g/dl (32.0-35.9); MEAN CELL VOLUME 93.4 fl (80-96); MONO % 11.7 % (3.8-10.2); NEUT % 61.6 % (42.8-82.8); PLATELET COUNT 144 K/MM3 (134-434); RBC 3.51 M/mm3 (4.00-5.60); RDW 15.6 % (11.9-15.9); WHITE BLOOD COUNT 5.5 K/mm3 (4.0-10.0)
--- NOTE | 2019-05-17 17:02 | PDOC ---
Attending Attestation - Resident Resident Name: Zarina Muro - ED Attending Attestation I have performed the following: I have examined & evaluated the patient, The case was reviewed & discussed with the resident, I agree w/resident's findings & plan, Exceptions are as noted - HPI HPI: 05/17/19 17:03 Mr. King is an 88 yo M with a PMH of HTN, HLD, CHF, CAD s/p CABG, hypothyroidism who presents with diarrhea for more than one month. Pt states that he has stopped eating because when he eats, he immediately has diarrhea He has noted no fevers or chills He has diffuse abdominal pain He has been taking flagyl Daughter was not at the bedside for my assessment Per Dr Muro's discussion with patient's daughter, Mr King started to have frequent watery diarrhea over one month ago. He was taken to [facility] where he was admitted for several days and treated for a bacterial infection (unclear what happened). Pt continued to have diarrhea and his daughter brought him to the ER to be assessed - Physicial Exam PE: 05/17/19 17:05 GENERAL: The patient is in no acute distress. ENT: Ears normal, nares patent, oropharynx clear without exudates. Moist mucous membranes. NECK: Normal range of motion, supple LUNGS: Breath sounds equal, clear to auscultation bilaterally. No wheezes, and no crackles. HEART:Regular rate and rhythm, normal S1 and S2 without murmur, rub or gallop. ABDOMEN: Soft, nontender, normoactive bowel sounds. EXTREMITIES: Normal range of motion, no edema. NEUROLOGICAL: Cranial nerves II through XII grossly intact. Normal speech. No focal neurological deficits. SKIN: Warm, Dry, normal turgor, no rashes or lesions noted. - Medical Decision Making 05/17/19 17:06 Laboratory Tests 09/07/17 05/17/19 06:10 16:20 WBC 5.5 Hgb 11.4 L D 10.6 L Hct 34.5 L 32.8 L Plt Count 165 D 144 05/17/19 17:24 Laboratory Tests 05/17/19 16:20 BUN 47.4 H Creatinine 1.8 H IV hydration initiated CT pending Signed out to overnight team
[2019-05-17 17:11] LABS: ALBUMIN 3.4 g/dl (3.4-5.0); BILIRUBIN,TOTAL 0.2 mg/dL (0.2-1); BLOOD UREA NITROGEN 47.4 mg/dL (7-18); CALCIUM 8.6 mg/dL (8.5-10.1); CREATININE 1.8 mg/dL (0.55-1.3); MAGNESIUM 2.3 mg/dL (1.8-2.4); TOT PROT 6.6 g/dl (6.4-8.2)
[2019-05-17] MEDS ORDERED: SODIUM CHLORIDE 1,000 ML IV SCH (21:15)
[2019-05-17] MEDS: SODIUM CHLORIDE 1,000 ML IV SCH (22:18)
--- NOTE | 2019-05-17 22:23 | HP ---
CHIEF COMPLAINT: diarrhea for 1 month PCP:Dr. Lucia Scout Professional Sports: Dr. Heraclio Abel Quantitative Equity Head: Dr. Harden Urologist: Dr. Wells HISTORY OF PRESENT ILLNESS: 88 year old mainly [place] speaking male with a past medical history of hypertension, hyperlipidemia, congestive heart failure , coronary artery disease with 3 prior stents and bioprosthetic valve replacement(unknown valve) at [facility], hypothyroidism and prostate cancer with radiation now in remission who presents with diarrhea for more than one month. As per his daughter at bedside patient he has a history of prostate cancer and he was seen by Urology- Dr. Wells in [place] about one month ago and he was started on Bactrim for an intestinal infection as reported. Since then he started to have frequent watery diarrhea. His daughter took him to [facility] about 2-3 weeks ago where he was admitted for several days and treated for a bacterial infection. She was not sure what type of infection he was diagnosed with. Patient was discharged home after 3-4 days and continued to have diarrhea at home described stool being blackish/bloody. Daughter took him to the PMD, who has had him taking Flagyl TID for several weeks. She reports no improvement in his symptoms. He denied fevers/chills, abdominal pain, nausea, vomiting, or hematochezia. Daughter brought him to the ED today because she called the PMD, reported that her father has started to become weak with dizziness, headache and weight loss from the diarrhea, and she was instructed to bring him to the hospital. Recent Travel: denies PAST MEDICAL HISTORY: Hypertension, Hyperlipidemia CHF Coronary Artery Disease with 3 prior stents Hypothyroidism Prostate cancer PAST SURGICAL HISTORY: bioprosthetic valve replacement(unknown valve)at [facility] Social History: Smoking:no Alcohol:no Drugs: no Allergies No Known Allergies Allergy (Verified 05/17/19 14:21) HOME MEDICATIONS: Home Medications Medication Instructions Recorded Metoprolol Succinate [Toprol XL -] 25 mg PO DAILY 10/26/16 Rosuvastatin [Crestor -] 20 mg PO DAILY 10/26/16 Levothyroxine [Synthroid -] 25 mcg PO DAILY 01/12/19 Aspirin/Dipyridamole [Aggrenox -] 1 combo PO BID 05/17/19 Dexlansoprazole [Dexilant] 60 mg PO DAILY 05/17/19 metroNIDAZOLE [Flagyl -] 250 mg PO TID 05/17/19 REVIEW OF SYSTEMS CONSTITUTIONAL: Absent: fever, chills, diaphoresis, generalized weakness, malaise, loss of appetite, weight loss HEENT: Absent: rhinorrhea, nasal congestion, throat pain, throat swelling, difficulty swallowing, mouth swelling, ear pain, eye pain, visual changes CARDIOVASCULAR: Absent: chest pain, syncope, palpitations, irregular heart rate, lightheadedness , peripheral edema RESPIRATORY: Absent: cough, shortness of breath, dyspnea with exertion, orthopnea, wheezing, stridor, hemoptysis GASTROINTESTINAL: Absent: abdominal pain, abdominal distension, nausea, vomiting, diarrhea(color black) , constipation, melena, hematochezia GENITOURINARY: Absent: dysuria, frequency, urgency, hesitancy, hematuria, flank pain, genital pain MUSCULOSKELETAL: Absent: myalgia, arthralgia, joint swelling, back pain, neck pain SKIN: Absent: rash, itching, pallor HEMATOLOGIC/IMMUNOLOGIC: Absent: easy bleeding, easy bruising, lymphadenopathy, frequent infections ENDOCRINE: Absent: unexplained weight gain, unexplained weight loss, heat intolerance, cold intolerance NEUROLOGIC: Absent: headache, focal weakness or paresthesias, dizziness, unsteady gait, seizure, mental status changes, bladder or bowel incontinence PSYCHIATRIC: Absent: anxiety, depression, suicidal or homicidal ideation, hallucinations. PHYSICAL EXAMINATION Vital Signs - 24 hr 05/17/19 05/17/19 05/17/19 14:19 15:33 19:06 Temperature 97.3 F L 97.3 F L Pulse Rate 55 L Pulse Rate [ 54 L Radial] Respiratory 18 18 Rate Blood Pressure 120/71 Blood Pressure 120/60 [Right Arm] O2 Sat by Pulse 100 99 Oximetry (%) 05/17/19 21:55 Temperature Pulse Rate Pulse Rate [ Radial] Respiratory 18 Rate Blood Pressure Blood Pressure [Right Arm] O2 Sat by Pulse 99 Oximetry (%) GENERAL: awake, alert, and fully oriented no acute distress HEAD: normal EYES: pupils equal, round and reactive to light, extraocular movements intact EARS, NOSE, THROAT: Ears normal, nares patent, oropharynx clear without exudates moist mucous membranes NECK: normal range of motion LUNGS: breath sounds equal clear to auscultation bilaterally no wheezes no crackles no accessory muscle use HEART: regular rate and rhythm normal S1 and S2 ABDOMEN: soft, nontender, not distended normoactive bowel sounds, no guarding MUSCULOSKELETAL: normal range of motion at all joints UPPER EXTREMITIES: 2+ pulses, warm, well-perfused no cyanosis LOWER EXTREMITIES: 2+ pulses, warm well-perfused NEUROLOGICAL: normal speech PSYCHIATRIC: cooperative good eye contact appropriate mood and affect SKIN: warm dry normal turgor no rashes or lesions noted dry healed midsternal incision present Laboratory Results - last 24 hr 05/17/19 05/17/19 16:20 16:20 WBC 5.5 RBC 3.51 L Hgb 10.6 L Hct 32.8 L MCV 93.4 MCH 30.3 MCHC 32.4 RDW 15.6 Plt Count 144 MPV 10.0 Absolute Neuts (auto) 3.4 Neutrophils % 61.6 Lymphocytes % 23.4 D Monocytes % 11.7 H Eosinophils % 2.8 Basophils % 0.5 Nucleated RBC % 0 Sodium 142 Potassium 5.0 Chloride 113 H Carbon Dioxide 21 Anion Gap 8 BUN 47.4 H Creatinine 1.8 H Est GFR (CKD-EPI)AfAm 38.64 Est GFR (CKD-EPI)NonAf 33.34 Random Glucose 87 Calcium 8.6 Magnesium 2.3 Total Bilirubin 0.2 AST 15 ALT 14 Alkaline Phosphatase 70 Total Protein 6.6 Albumin 3.4 ASSESSMENT/PLAN: 88 year old mainly [place]se speaking male with a past medical history of hypertension, hyperlipidemia, CHF, coronary artery disease with 3 prior stents and bioprosthetic valve replacement(unknown valve)at [facility], hypothyroidism and prostate cancer with radiation now in remission who presents with diarrhea for one month, now with symptoms of oral intolerance, weakness and dizziness. Patient was admitted to Medicine for further medical management/evaluation. #1 Diarrhea(recurrent) afebrile, no leukocytosis, BP normotensive Check Clostridium Deficele Check stool culture Check stool guaiac Continue with Flagyl 250mg TID Continue w/ IVF NS at 75cc/hr, monitor for signs of fluid overload Infectious Diseases- Dr. Weber consulted Gastroenterology- Dr. Abel consulted #2 Acute Renal Insufficiency/Hyperkalemia(likely in setting of oral intolerance) Creatinine 1.8, potassium 5.0, CT abdomen w/ no acute pathology, moderate right hydronephrosis with urethral dilatation Continue with IVF NS at 75cchr Repeat BMP in am Nephrology- Dr. Campo consulted #3 Coronary Artery Disease/Hx stents Asymptomatic Continue with metoprolol and statin therapy Will hold aspirin, pending stool guaiac #4 Congestive Heart Failure(diastolic versus systolic unknown) Patient appears euvolemic Continue w/ metoprolol succinate Avoid suzan/arb in setting of acute renal insufficiency Monitor fluid volume status closely #5 Hypothyroidism Check TSH Continue with synthroid #6 Hyperlipidemia Continue with statin therapy #7 Prostate Cancer(Remission) FEN IVF NS @75cc/hr low sodium diet monitor electrolytes closely DVT TEDS and SCD's Visit type - Emergency Visit Emergency Visit: Yes ED Registration Date: 05/17/19 Care time: The patient presented to the Emergency Department on the above date and was hospitalized for further evaluation of their emergent condition. - New Patient This patient is new to me today: Yes Date on this admission: 05/18/19 - Critical Care Critical Care patient: No
[2019-05-18] MEDS ORDERED: metroNIDAZOLE 250 MG TABLET PO SCH (06:00)
[2019-05-18] MEDS ORDERED: metroNIDAZOLE 250 MG TABLET ONE (06:18)
[2019-05-18 06:49] LABS: BASO % 0.8 % (0-2.0); EOS % 3.6 % (0-4.5); HEMATOCRIT 30.3 % (35.4-49); HEMOGLOBIN 9.8 GM/dL (11.7-16.9); LYMPH % 27.1 % (8-40); MCH 30.2 pg (25.7-33.7); MCHC 32.2 g/dl (32.0-35.9); MEAN CELL VOLUME 93.7 fl (80-96); MEAN PLT VOLUME 9.7 fl (7.5-11.1); MONO % 11.2 % (3.8-10.2); NEUT % 57.3 % (42.8-82.8); PLATELET COUNT 121 K/MM3 (134-434); RBC 3.23 M/mm3 (4.00-5.60); RDW 15.5 % (11.9-15.9); WHITE BLOOD COUNT 4.1 K/mm3 (4.0-10.0)
[2019-05-18 07:05] LABS: PH,URINE 5.5 (5.0-8.0); URINE APPEARANCE CLEAR; URINE BILIRUBIN NEGATIVE (NEGATIVE); URINE COLOR YELLOW; URINE GLUCOSE (UA) NEGATIVE (NEGATIVE); URINE KETONE NEGATIVE (NEGATIVE); URINE LEUK ESTERASE NEGATIVE (NEGATIVE); URINE NITRITE NEGATIVE (NEGATIVE); URINE PROTEIN NEGATIVE (NEGATIVE); URINE UROBILINOGEN 0.2 mg/dL (0.2-1.0)
[2019-05-18] MEDS ORDERED: LEVOTHYROXINE NA 25 MCG TABLET (FP) ONE (07:26)
[2019-05-18 07:27] LABS: ALBUMIN 2.9 g/dl (3.4-5.0); BILIRUBIN,TOTAL 0.2 mg/dL (0.2-1); BLOOD UREA NITROGEN 35.3 mg/dL (7-18); CALCIUM 8.5 mg/dL (8.5-10.1); CREATININE 1.5 mg/dL (0.55-1.3); POTASSIUM 4.9 mmol/L (3.5-5.1); TOT PROT 5.9 g/dl (6.4-8.2)
[2019-05-18] MEDS: LEVOTHYROXINE NA 25 MCG TABLET (FP) PO SCH (07:31)
--- NOTE | 2019-05-18 08:51 | PN ---
Progress Note, Physician - Current Medication List Current Medications: Active Medications Sodium Chloride (Normal Saline -) 1,000 mls @ 100 mls/hr IV ASDIR [facility] Last Admin: 05/17/19 22:17 Dose: 100 mls/hr Sodium Chloride (Normal Saline -) 1,000 mls @ 75 mls/hr IV ASDIR [facility] Last Admin: 05/17/19 22:18 Dose: 75 mls/hr Levothyroxine Sodium (Synthroid -) 25 mcg PO ACBK [facility] Last Admin: 05/18/19 07:31 Dose: 25 mcg Metoprolol Succinate (Toprol Xl -) 25 mg PO DAILY [facility] Metronidazole (Flagyl -) 250 mg PO TID [facility] Last Admin: 05/18/19 06:25 Dose: 250 mg Rosuvastatin Calcium (Crestor -) 20 mg PO DAILY [facility] - Objective Vital Signs: Vital Signs Temperature 97.3 F L 05/17/19 19:06 Pulse Rate 51 L 05/18/19 06:33 Respiratory Rate 18 05/18/19 06:35 Blood Pressure 157/72 05/18/19 06:33 O2 Sat by Pulse Oximetry (%) 98 05/18/19 06:35 Labs: CBC, BMP 05/18/19 06:05 05/18/19 06:05 Problem List - Problems (1) Diarrhea Assessment/Plan: Check Clostridium Deficele Check stool culture Check stool guaiac Continue with Flagyl 250mg TID Continue w/ IVF NS at 75cc/hr, monitor for signs of fluid overload Infectious Diseases- Dr. Weber consulted Gastroenterology- Dr. Abel consulted Code(s): R19.7 - DIARRHEA, UNSPECIFIED Qualifiers: Diarrhea type: unspecified type Qualified Code(s): R19.7 - Diarrhea, unspecified (2) CHF (congestive heart failure) Assessment/Plan: Patient appears euvolemic Continue w/ metoprolol succinate Avoid suzan/arb in setting of acute renal insufficiency Monitor fluid volume status closely Code(s): I50.9 - HEART FAILURE, UNSPECIFIED (3) PATRICK (acute kidney injury) Assessment/Plan: Creatinine 1.8, potassium 5.0, CT abdomen w/ no acute pathology, moderate right hydronephrosis with urethral dilatation Continue with IVF NS at 75cchr Repeat BMP in am Nephrology- Dr. Campo consulted Code(s): N17.9 - ACUTE KIDNEY FAILURE, UNSPECIFIED (4) Hypothyroidism Code(s): E03.9 - HYPOTHYROIDISM, UNSPECIFIED (5) CAD (coronary artery disease) Assessment/Plan: Asymptomatic Continue with metoprolol and statin therapy Will hold aspirin, pending stool guaiac Code(s): I25.10 - ATHSCL HEART DISEASE OF [place] CORONARY ARTERY W/O ANG PCTRS
--- NOTE | 2019-05-18 08:57 | CON.GI ---
Consult Consult Specialty:: GI Reason for Consultation:: Black Stools - History of Present Illness History of Present Illness: Patient is an 88 y/o male with past medical history of HTN, HLD, CHD, CAD with 3 stents and bioprosthetic valve replacement, Hypothyroidism, and Prostate CA. Patient states that for 2 months he was experiencing diarrhea after eating. He states that at times his stools would be black in color. Denies nausea, vomiting, fever, chills accompanied with diarrhea. He states that he has experienced abnormal weight loss but of an unknown amount. - History Source History Provided By: Patient Limitations to Obtaining History: No Limitations - Past Medical History Cardio/Vascular: Yes: CAD, CHF, HTN, Hyperlipdemia, Other (Bioprosthetic Valve) Endocrine: Yes: Hypothyroidism - Past Surgical History Past Surgical History: Yes: Stent, Valve Replacement - Alcohol/Substance Use Hx Alcohol Use: No - Smoking History Smoking history: Former smoker Have you smoked in the past 12 months: No Aproximately how many cigarettes per day: 0 If you are a former smoker, when did you quit?: 1999 Home Medications - Allergies Allergies/Adverse Reactions: Allergies Allergy/AdvReac Type Severity Reaction Status Date / Time No Known Allergies Allergy Verified 05/17/19 14:21 - Home Medications Home Medications: Ambulatory Orders Metoprolol Succinate [Toprol XL -] 25 mg PO DAILY 10/26/16 Rosuvastatin [Crestor -] 20 mg PO DAILY 10/26/16 Levothyroxine [Synthroid -] 25 mcg PO DAILY 01/12/19 Aspirin/Dipyridamole [Aggrenox -] 1 combo PO BID 05/17/19 Dexlansoprazole [Dexilant] 60 mg PO DAILY 05/17/19 metroNIDAZOLE [Flagyl -] 250 mg PO TID 05/17/19 Review of Systems - Review of Systems Constitutional: reports: Loss of Appetite Eyes: reports: No Symptoms HENT: reports: No Symptoms Neck: reports: No Symptoms Cardiovascular: reports: No Symptoms Respiratory: reports: No Symptoms Gastrointestinal: reports: Diarrhea, Melena Genitourinary: reports: Incontinence Breasts: reports: No Symptoms Reported Musculoskeletal: reports: No Symptoms Integumentary: reports: No Symptoms Neurological: reports: No Symptoms Endocrine: reports: No Symptoms Hematology/Lymphatic: reports: No Symptoms Psychiatric: reports: No Symptoms Physical Exam-GI Vital Signs: Vital Signs Temperature 97.3 F L 05/17/19 19:06 Pulse Rate 51 L 05/18/19 06:33 Respiratory Rate 18 05/18/19 06:35 Blood Pressure 157/72 05/18/19 06:33 O2 Sat by Pulse Oximetry (%) 98 05/18/19 06:35 Constitutional: Yes: No Distress, Calm Eyes: Yes: Conjunctiva Clear HENT: Yes: Atraumatic Cardiovascular: Yes: Regular Rate and Rhythm Respiratory: Yes: Regular, CTA Bilaterally Gastrointestinal Inspection: Yes: WNL. No: Ascites, Distention, Hernia, Scars, Other ...Auscultate: Yes: Normoactive Bowel Sounds. No: Hyperactive Bowel Sounds, Hypoactive Bowel Sounds, No Bowel Sounds, Other ...Palpate: Yes: Soft. No: Firm/Rigid, Guarding, Hepatomegaly, Mass, Pulsatile Mass, Splenomegaly, Tenderness, Tenderness, Epigastium, Tenderness, Rebound, Other ...Percussion: Yes: Tympanitic. No: Dullness, Fluid Wave, Other Neurological: Yes: Alert Psychiatric: Yes: Alert Labs: CBC, BMP 05/18/19 06:05 05/18/19 06:05 Imaging - Results Cat Scan: Report Reviewed Problem List - Problems (1) Diarrhea Assessment/Plan: >Stool OB ordered >Stool Culture and C-diff ordered >Hg 9.8 >monitor Hg daily and transfuse for Hg <8.0 >CTAP shows no definite CT scan findings of acute pathology >continue Flagyl >low fiber, lactose free diet Code(s): R19.7 - DIARRHEA, UNSPECIFIED Qualifiers: Diarrhea type: unspecified type Qualified Code(s): R19.7 - Diarrhea, unspecified
[2019-05-18] MEDS: SODIUM CHLORIDE 1,000 ML IV SCH (10:00)
[2019-05-18] MEDS: metoPROLOL SUCCINATE 25 MG TAB.SR.24H (FP) PO SCH (10:38)
--- NOTE | 2019-05-18 12:55 | CONSULT ---
Consult Consult Specialty:: Nephrology Reason for Consultation:: PATRICK - History of Present Illness Chief Complaint: diarrhea History of Present Illness: Pt is an 88 year old male with pmhx of htn, chf, hld, cad and bioprosthetic valce, and prostate cancer who presents to the ER with diarrhea. He says that he has had it for about a month. He complains of diarrhea after eating any food. He was found to be in PATRICK and I was called to evaluate him. He denies shortness of breath. She denies dysuria or hematuria. He denies nsaid use. - History Source History Provided By: Patient, Medical Record - Past Medical History Cardio/Vascular: Yes: CAD, CHF, HTN, Hyperlipdemia, Other (Bioprosthetic Valve) Endocrine: Yes: Hypothyroidism - Past Surgical History Past Surgical History: Yes: Stent, Valve Replacement - Alcohol/Substance Use Hx Alcohol Use: No - Smoking History Smoking history: Former smoker Have you smoked in the past 12 months: No Aproximately how many cigarettes per day: 0 If you are a former smoker, when did you quit?: 1999 Home Medications - Allergies Allergies/Adverse Reactions: Allergies Allergy/AdvReac Type Severity Reaction Status Date / Time No Known Allergies Allergy Verified 05/17/19 14:21 - Home Medications Home Medications: Ambulatory Orders Metoprolol Succinate [Toprol XL -] 25 mg PO DAILY 10/26/16 Rosuvastatin [Crestor -] 20 mg PO DAILY 10/26/16 Levothyroxine [Synthroid -] 25 mcg PO DAILY 01/12/19 Aspirin/Dipyridamole [Aggrenox -] 1 combo PO BID 05/17/19 Dexlansoprazole [Dexilant] 60 mg PO DAILY 05/17/19 metroNIDAZOLE [Flagyl -] 250 mg PO TID 05/17/19 Timolol 0.5% [Timoptic 0.5%] 1 drop OU BID 05/18/19 Travoprost [Travatan Z] 1 drop OU HS 05/18/19 Family Medical History Family History: Denies Review of Systems - Review of Systems Constitutional: reports: Malaise Eyes: reports: No Symptoms HENT: reports: No Symptoms Neck: reports: No Symptoms Cardiovascular: reports: No Symptoms Respiratory: reports: No Symptoms Gastrointestinal: reports: Diarrhea Genitourinary: reports: No Symptoms Musculoskeletal: reports: No Symptoms Integumentary: reports: No Symptoms Neurological: reports: No Symptoms Endocrine: reports: No Symptoms Hematology/Lymphatic: reports: No Symptoms Psychiatric: reports: No Symptoms Physical Exam Vital Signs: Vital Signs Temperature 97.3 F L 05/17/19 19:06 Pulse Rate 50 L 05/18/19 10:37 Respiratory Rate 18 05/18/19 10:37 Blood Pressure 128/65 05/18/19 10:37 O2 Sat by Pulse Oximetry (%) 99 05/18/19 10:37 Constitutional: Yes: Calm Eyes: Yes: Conjunctiva Clear HENT: Yes: Atraumatic Neck: Yes: Supple Cardiovascular: Yes: S1, S2 Respiratory: Yes: CTA Bilaterally Gastrointestinal: Yes: Soft Musculoskeletal: Yes: WNL Edema: No Neurological: Yes: Oriented Psychiatric: Yes: Oriented Labs: CBC, BMP 05/18/19 06:05 05/18/19 06:05 Laboratory Tests 09/07/17 07/29/18 05/17/19 06:10 08:10 16:20 Hgb 10.6 L Creatinine 1.2 1.4 H Urine Protein Urine Blood 05/17/19 05/18/19 05/18/19 16:20 06:05 06:05 Hgb 9.8 L Creatinine 1.8 H 1.5 H Urine Protein Urine Blood 05/18/19 06:27 Hgb Creatinine Urine Protein Negative Urine Blood Negative Imaging - Results Cat Scan: Report Reviewed Problem List - Problems (1) PATRICK (acute kidney injury) Code(s): N17.9 - ACUTE KIDNEY FAILURE, UNSPECIFIED (2) CAD (coronary artery disease) Code(s): I25.10 - ATHSCL HEART DISEASE OF [place] CORONARY ARTERY W/O ANG PCTRS (3) Diarrhea Code(s): R19.7 - DIARRHEA, UNSPECIFIED Qualifiers: Diarrhea type: unspecified type Qualified Code(s): R19.7 - Diarrhea, unspecified Assessment/Plan Current Medications Generic Name Dose Route Start Last Admin Trade Name Freq PRN Reason Stop Dose Admin Sodium Chloride 1,000 mls @ 100 mls/hr 05/17/19 21:15 05/17/19 22:17 Normal Saline - IV 100 mls/hr ASDIR HERBER Administration Sodium Chloride 1,000 mls @ 75 mls/hr 05/17/19 22:15 05/17/19 22:18 Normal Saline - IV 75 mls/hr ASDIR HERBER Administration Levothyroxine Sodium 25 mcg 05/18/19 07:00 05/18/19 07:31 Synthroid - PO 25 mcg ACBK HERBER Administration Metoprolol Succinate 25 mg 05/18/19 10:00 05/18/19 10:38 Toprol Xl - PO 25 mg DAILY HERBER Administration Metronidazole 250 mg 05/18/19 06:00 05/18/19 06:25 Flagyl - PO 250 mg TID HERBER Administration Rosuvastatin Calcium 20 mg 05/18/19 10:00 Crestor - PO DAILY HERBER Impression 1. PATRICK 2. diarrhea 3. right hydro 4. cad 5. prostate cancer 6. chf 7. hld Plan - urology eval for hydro - monitor renal function - caution with fluids, will decrease rate - diarrhea workup in progress - avoid nsaids
--- NOTE | 2019-05-18 12:59 | CON.ID ---
Consult Consult Specialty:: infectious disease Referred by:: dr samuel Reason for Consultation:: diarrhea - History of Present Illness Chief Complaint: diarrhea for one month History of Present Illness: 88 yo man with history of diarrhea everytime he eats for last one month followed by dr burciaga has been on recent flagyl without improvement no abdominal pain 10 pound weight loss no fever recent endoscopy upper and lower with dr bonner in January 2019 with radiatio proctitis, gastritis negative h pylori on path and duodenitis no travel no blood in stools has not had diarrhea since arrival to the ED feels weak - History Source History Provided By: Patient, Medical Record Limitations to Obtaining History: Language Barrier (used nurse court interpreter) - Past Medical History Cardio/Vascular: Yes: CAD, CHF, HTN, Hyperlipdemia, Other (Bioprosthetic Valve) Heme/Onc: Yes: Other (prostate cancer s/p radiation) Endocrine: Yes: Hypothyroidism - Past Surgical History Past Surgical History: Yes: Stent, Valve Replacement - Alcohol/Substance Use Hx Alcohol Use: No - Smoking History Smoking history: Former smoker Have you smoked in the past 12 months: No Aproximately how many cigarettes per day: 0 If you are a former smoker, when did you quit?: 1999 - Social History Usual Living Arrangement: With Child Place of : Other ([place]) History of Recent Travel: No Home Medications - Allergies Allergies/Adverse Reactions: Allergies Allergy/AdvReac Type Severity Reaction Status Date / Time No Known Allergies Allergy Verified 05/17/19 14:21 - Home Medications Home Medications: Ambulatory Orders Metoprolol Succinate [Toprol XL -] 25 mg PO DAILY 10/26/16 Rosuvastatin [Crestor -] 20 mg PO DAILY 10/26/16 Levothyroxine [Synthroid -] 25 mcg PO DAILY 01/12/19 Aspirin/Dipyridamole [Aggrenox -] 1 combo PO BID 05/17/19 Dexlansoprazole [Dexilant] 60 mg PO DAILY 05/17/19 metroNIDAZOLE [Flagyl -] 250 mg PO TID 05/17/19 Timolol 0.5% [Timoptic 0.5%] 1 drop OU BID 05/18/19 Travoprost [Travatan Z] 1 drop OU HS 05/18/19 Family Medical History Family History: Unable to Obtain Review of Systems - Review of Systems Constitutional: reports: Unintentional Wgt. Loss, Weakness. denies: Chills, Fever Eyes: reports: No Symptoms HENT: reports: No Symptoms Neck: reports: No Symptoms Cardiovascular: reports: No Symptoms Respiratory: reports: No Symptoms Gastrointestinal: reports: No Symptoms Genitourinary: reports: No Symptoms Breasts: reports: No Symptoms Reported Musculoskeletal: reports: No Symptoms Integumentary: reports: No Symptoms Neurological: reports: No Symptoms Physical Exam Vital Signs: Vital Signs Temperature 97.3 F L 05/17/19 19:06 Pulse Rate 50 L 05/18/19 10:37 Respiratory Rate 18 05/18/19 10:37 Blood Pressure 128/65 05/18/19 10:37 O2 Sat by Pulse Oximetry (%) 99 05/18/19 10:37 Constitutional: Yes: Well Nourished, No Distress, Calm Eyes: Yes: Conjunctiva Clear, EOM Intact HENT: Yes: Atraumatic, Normocephalic Neck: Yes: Supple Cardiovascular: Yes: Regular Rate and Rhythm Respiratory: Yes: Regular, CTA Bilaterally Gastrointestinal: Yes: Normal Bowel Sounds, Soft. No: Tenderness ...Rectal Exam: Yes: Deferred Renal/: No: CVA Tenderness - Left, CVA Tenderness - Right Breast(s): Yes: WNL Musculoskeletal: Yes: WNL Extremities: Yes: WNL Edema: No Neurological: Yes: Alert, Oriented Labs: CBC, BMP 05/18/19 06:05 05/18/19 06:05 Imaging - Results Cat Scan: Report Reviewed (right hydronephrosis) Problem List - Problems (1) Diarrhea Code(s): R19.7 - DIARRHEA, UNSPECIFIED Qualifiers: Diarrhea type: unspecified type Qualified Code(s): R19.7 - Diarrhea, unspecified (2) PATRICK (acute kidney injury) Code(s): N17.9 - ACUTE KIDNEY FAILURE, UNSPECIFIED (3) Weakness Code(s): R53.1 - WEAKNESS Assessment/Plan I called [facility] no records tried to reach dr burciaga no answer would d/c flagyl and re-evaluate stool for cdiff, wbc, culture, ova and parasite gi evaluation
--- NOTE | 2019-05-18 15:41 | EKG ---
Test Reason : Blood Pressure : / mmHG Vent. Rate : 050 BPM Atrial Rate : 050 BPM P-R Int : 196 ms QRS Dur : 110 ms QT Int : 410 ms P-R-T Axes : 076 -17 010 degrees QTc Int : 373 ms SINUS BRADYCARDIA NONSPECIFIC T WAVE ABNORMALITY ABNORMAL ECG WHEN COMPARED WITH ECG OF 05-SEP-2017 00:29, QRS DURATION HAS INCREASED NONSPECIFIC T WAVE ABNORMALITY NOW EVIDENT IN INFERIOR LEADS QT HAS SHORTENED Confirmed by EPIFANIO CORNEJO, JOSE ([id number]) on 05/18/2019 3:41:35 PM Referred By: Confirmed By:JOSE GODFREY MD
[2019-05-18 17:22] VITALS: BMI 21.8
[2019-05-18] MEDS ORDERED: SODIUM CHLORIDE 0.45% 1,000 ML IV SCH ×2 (22:00)
[2019-05-18] MEDS: TIMOLOL 0.5% OPHTHALMIC SOL 5 ML BOTTLE OU SCH (22:02)
[2019-05-19] MEDS: LEVOTHYROXINE NA 25 MCG TABLET (FP) PO SCH (06:09)
--- NOTE | 2019-05-19 08:03 | PN.GI ---
GI Progress Note Subjective: As per RN no reports of rectal bleeding, melena or diarrhea. Patient states having mild LLQ pain but is non-tender on palpation. Denies nausea, vomiting. - Objective Vital Signs: Vital Signs Temperature 97.9 F 05/19/19 05:33 Pulse Rate 47 L 05/19/19 05:33 Respiratory Rate 20 05/19/19 05:33 Blood Pressure 129/69 05/19/19 05:33 O2 Sat by Pulse Oximetry (%) 96 05/18/19 21:00 Constitutional: No Distress, Calm Eyes: Yes: Conjunctiva Clear HENT: Yes: Atraumatic Cardiovascular: Yes: Regular Rate and Rhythm Respiratory: Yes: Regular, CTA Bilaterally Gastrointestinal Inspection: Yes: WNL. No: Ascites, Distention, Hernia, Scars, Other ...Auscultate: Yes: Normoactive Bowel Sounds. No: Hyperactive Bowel Sounds, Hypoactive Bowel Sounds, No Bowel Sounds, Other ...Palpate: Yes: Soft. No: Firm/Rigid, Guarding, Hepatomegaly, Mass, Pulsatile Mass, Splenomegaly, Tenderness, Tenderness, Epigastium, Tenderness, Rebound, Other ...Percussion: Yes: Tympanitic. No: Dullness, Fluid Wave, Other Neurological: Yes: Alert Psychiatric: Yes: Alert Labs: CBC, BMP 05/18/19 06:05 05/18/19 06:05 Active Medications Generic Name Dose Route Start Last Admin Trade Name Freq PRN Reason Stop Dose Admin Sodium Chloride 1,000 mls @ 60 mls/hr 05/18/19 22:00 05/18/19 22:01 1/2 Normal Saline IV 05/19/19 21:47 60 mls/hr ASDIR HERBER Administration Levothyroxine Sodium 25 mcg 05/18/19 07:00 05/19/19 06:09 Synthroid - PO 25 mcg ACBK HERBER Administration Metoprolol Succinate 25 mg 05/18/19 10:00 05/18/19 10:38 Toprol Xl - PO 25 mg DAILY HERBER Administration Rosuvastatin Calcium 20 mg 05/18/19 10:00 Crestor - PO DAILY HERBER Timolol Maleate 1 drop 05/18/19 22:00 05/18/19 22:02 Timoptic 0.5% OU 1 drop BID HERBER Administration Problem List - Problems (1) Diarrhea Assessment/Plan: >Stool OB ordered >Stool Culture, O&P, and C-diff collected and sent, results pending >Hg 9.8 >monitor Hg daily and transfuse for Hg <8.0 >CTAP shows no definite CT scan findings of acute pathology >Flagyl discontinued >low fiber, lactose free diet Code(s): R19.7 - DIARRHEA, UNSPECIFIED Qualifiers: Diarrhea type: unspecified type Qualified Code(s): R19.7 - Diarrhea, unspecified
[2019-05-19 08:47] LABS: ALBUMIN 2.9 g/dl (3.4-5.0); BILIRUBIN,TOTAL 0.2 mg/dL (0.2-1); BLOOD UREA NITROGEN 27.8 mg/dL (7-18); CALCIUM 8.3 mg/dL (8.5-10.1); CREATININE 1.3 mg/dL (0.55-1.3); POTASSIUM 5.2 mmol/L (3.5-5.1); TOT PROT 5.7 g/dl (6.4-8.2)
[2019-05-19] MEDS: metoPROLOL SUCCINATE 25 MG TAB.SR.24H (FP) PO SCH (09:26)
[2019-05-19] MEDS: TIMOLOL 0.5% OPHTHALMIC SOL 5 ML BOTTLE OU SCH ×2 (09:27→21:21)
[2019-05-19] MEDS: SODIUM CHLORIDE 0.45% 1,000 ML IV SCH ×2 (11:00→20:17)
--- NOTE | 2019-05-19 13:05 | CON.GU ---
Consult - History of Present Illness History of Present Illness: 88 yo male with h/o prostate CA s/p XRT in past. Admitted with diarhea. No voiding complaints. 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 Pt denies any flank pain - Past Medical History Cardio/Vascular: Yes: CAD, CHF, HTN, Hyperlipdemia, Other (Bioprosthetic Valve) Endocrine: Yes: Hypothyroidism - Past Surgical History Past Surgical History: Yes: Stent, Valve Replacement - Alcohol/Substance Use Hx Alcohol Use: No - Smoking History Smoking history: Former smoker Have you smoked in the past 12 months: No Aproximately how many cigarettes per day: 0 If you are a former smoker, when did you quit?: 1999 - Social History Usual Living Arrangement: With Child History of Recent Travel: No Home Medications - Allergies Allergies/Adverse Reactions: Allergies Allergy/AdvReac Type Severity Reaction Status Date / Time No Known Allergies Allergy Verified 05/17/19 14:21 - Home Medications Home Medications: Ambulatory Orders Metoprolol Succinate [Toprol XL -] 25 mg PO DAILY 10/26/16 Rosuvastatin [Crestor -] 20 mg PO DAILY 10/26/16 Levothyroxine [Synthroid -] 25 mcg PO DAILY 01/12/19 Aspirin/Dipyridamole [Aggrenox -] 1 combo PO BID 05/17/19 Dexlansoprazole [Dexilant] 60 mg PO DAILY 05/17/19 metroNIDAZOLE [Flagyl -] 250 mg PO TID 05/17/19 Timolol 0.5% [Timoptic 0.5%] 1 drop OU BID 05/18/19 Travoprost [Travatan Z] 1 drop OU HS 05/18/19 Review of Systems - Review of Systems Genitourinary: reports: No Symptoms Physical Exam- Vital Signs: Vital Signs Temperature 97.4 F L 05/19/19 09:26 Pulse Rate 55 L 05/19/19 09:26 Respiratory Rate 20 05/19/19 09:26 Blood Pressure 146/68 05/19/19 09:26 O2 Sat by Pulse Oximetry (%) 96 05/19/19 09:00 Kidneys: Yes: WNL Labs: CBC, BMP 05/18/19 06:05 05/19/19 07:40 Imaging - Results Cat Scan: Report Reviewed Problem List - Problems (1) Hydronephrosis, left Assessment/Plan: Findings are chronic. No intervention needed Code(s): N13.30 - UNSPECIFIED HYDRONEPHROSIS
--- NOTE | 2019-05-19 13:51 | PN ---
Progress Note, Physician Chief Complaint: patient seen and examined awake alert no loose BM no abdominal pain - Current Medication List Current Medications: Active Medications Sodium Chloride (1/2 Normal Saline) 1,000 mls @ 75 mls/hr IV ASDIR [facility] Stop: 05/19/19 21:47 Levothyroxine Sodium (Synthroid -) 25 mcg PO ACBK [facility] Last Admin: 05/19/19 06:09 Dose: 25 mcg Metoprolol Succinate (Toprol Xl -) 25 mg PO DAILY [facility] Last Admin: 05/19/19 09:26 Dose: 25 mg Rosuvastatin Calcium (Crestor -) 20 mg PO DAILY [facility] Timolol Maleate (Timoptic 0.5%) 1 drop OU BID [facility] Last Admin: 05/19/19 09:27 Dose: 1 drop - Objective Vital Signs: Vital Signs Temperature 98.0 F 05/19/19 13:19 Pulse Rate 53 L 05/19/19 13:19 Respiratory Rate 20 05/19/19 13:19 Blood Pressure 137/68 05/19/19 13:19 O2 Sat by Pulse Oximetry (%) 96 05/19/19 09:00 Constitutional: Yes: Calm Cardiovascular: Yes: Regular Rate and Rhythm, S1, S2 Respiratory: Yes: CTA Bilaterally Gastrointestinal: Yes: Normal Bowel Sounds, Soft Edema: No Neurological: Yes: Alert, Oriented Labs: CBC, BMP 05/18/19 06:05 05/19/19 07:40 Problem List - Problems (1) PATRICK (acute kidney injury) Assessment/Plan: ivf renal function is improving Code(s): N17.9 - ACUTE KIDNEY FAILURE, UNSPECIFIED (2) Hydronephrosis, left Assessment/Plan: urology consult noted -chronic findings Code(s): N13.30 - UNSPECIFIED HYDRONEPHROSIS (3) Diarrhea Assessment/Plan: stool studies pending gi eval appreicated lactose free diet ct scan no acute pathology no abdominal pain on exam flagyl stopped Code(s): R19.7 - DIARRHEA, UNSPECIFIED Qualifiers: Diarrhea type: unspecified type Qualified Code(s): R19.7 - Diarrhea, unspecified Assessment/Plan dc home in AM
[2019-05-19] MEDS ORDERED: SODIUM ZIRCONIUM CYCLOSILICATE (LOKELMA) 5 GM PACKET PO ONE (16:28)
--- NOTE | 2019-05-19 16:28 | PN ---
Progress Note, Physician History of Present Illness: Pt seen and examined at bedside. He says that the diarrhea has resolved. - Current Medication List Current Medications: Active Medications Sodium Chloride (1/2 Normal Saline) 1,000 mls @ 75 mls/hr IV ASDIR HERBER Stop: 05/19/19 21:47 Last Admin: 05/19/19 11:00 Dose: 75 mls/hr Levothyroxine Sodium (Synthroid -) 25 mcg PO ACBK [facility] Last Admin: 05/19/19 06:09 Dose: 25 mcg Metoprolol Succinate (Toprol Xl -) 25 mg PO DAILY [facility] Last Admin: 05/19/19 09:26 Dose: 25 mg Rosuvastatin Calcium (Crestor -) 20 mg PO DAILY [facility] Timolol Maleate (Timoptic 0.5%) 1 drop OU BID [facility] Last Admin: 05/19/19 09:27 Dose: 1 drop - Objective Vital Signs: Vital Signs Temperature 98.0 F 05/19/19 13:19 Pulse Rate 53 L 05/19/19 13:19 Respiratory Rate 20 05/19/19 13:19 Blood Pressure 137/68 05/19/19 13:19 O2 Sat by Pulse Oximetry (%) 96 05/19/19 09:00 Constitutional: Yes: Calm Eyes: Yes: Conjunctiva Clear HENT: Yes: Atraumatic Neck: Yes: Supple Cardiovascular: Yes: S1, S2 Respiratory: Yes: CTA Bilaterally Gastrointestinal: Yes: Soft Genitourinary: Yes: WNL Musculoskeletal: Yes: WNL Neurological: Yes: Oriented Psychiatric: Yes: Oriented Labs: CBC, BMP 05/18/19 06:05 05/19/19 07:40 Problem List - Problems (1) PATRICK (acute kidney injury) Code(s): N17.9 - ACUTE KIDNEY FAILURE, UNSPECIFIED (2) CAD (coronary artery disease) Code(s): I25.10 - ATHSCL HEART DISEASE OF [place] CORONARY ARTERY W/O ANG PCTRS (3) Diarrhea Code(s): R19.7 - DIARRHEA, UNSPECIFIED Qualifiers: Diarrhea type: unspecified type Qualified Code(s): R19.7 - Diarrhea, unspecified Assessment/Plan Current Medications Generic Name Dose Route Start Last Admin Trade Name Freq PRN Reason Stop Dose Admin Sodium Chloride 1,000 mls @ 75 mls/hr 05/19/19 10:45 05/19/19 11:00 1/2 Normal Saline IV 05/19/19 21:47 75 mls/hr ASDIR HERBER Administration Levothyroxine Sodium 25 mcg 05/18/19 07:00 05/19/19 06:09 Synthroid - PO 25 mcg ACBK HERBER Administration Metoprolol Succinate 25 mg 05/18/19 10:00 05/19/19 09:26 Toprol Xl - PO 25 mg DAILY HERBER Administration Rosuvastatin Calcium 20 mg 05/20/19 10:00 Crestor - PO DAILY HERBER Timolol Maleate 1 drop 05/18/19 22:00 05/19/19 09:27 Timoptic 0.5% OU 1 drop BID HERBER Administration Impression 1. PATRICK 2. diarrhea 3. right hydro 4. cad 5. prostate cancer 6. chf 7. hld Plan - renal function improving - urology input appreciated - increase rate of fluids, should help with potassium - repeat labs in am - will give small dose of lokelma - avoid nsaids
[2019-05-20] MEDS: LEVOTHYROXINE NA 25 MCG TABLET (FP) PO SCH (06:00)
[2019-05-20 09:30] LABS: ALBUMIN 2.9 g/dl (3.4-5.0); BILIRUBIN,TOTAL 0.2 mg/dL (0.2-1); BLOOD UREA NITROGEN 23.8 mg/dL (7-18); CALCIUM 8.9 mg/dL (8.5-10.1); CREATININE 1.2 mg/dL (0.55-1.3); MAGNESIUM 2.1 mg/dL (1.8-2.4); TOT PROT 6.3 g/dl (6.4-8.2)
[2019-05-20 09:39] VITALS: BP 136/74; PULSE 57; TEMP 97.8
[2019-05-20] MEDS ORDERED: ROSUVASTATIN CA 20 MG TABLET (FP) PO SCH (10:00)
[2019-05-20] MEDS: TIMOLOL 0.5% OPHTHALMIC SOL 5 ML BOTTLE OU SCH (10:52)
[2019-05-20] MEDS: metoPROLOL SUCCINATE 25 MG TAB.SR.24H (FP) PO SCH (10:52)
--- NOTE | 2019-05-20 12:44 | DS ---
Physical Examination Vital Signs: Vital Signs Temperature 97.8 F 05/20/19 09:39 Pulse Rate 57 L 05/20/19 09:39 Respiratory Rate 20 05/20/19 09:39 Blood Pressure 136/74 05/20/19 09:39 O2 Sat by Pulse Oximetry (%) 96 05/20/19 09:00 Findings/Remarks: Laboratory Results - last 24 hr 05/20/19 07:10 Sodium 144 Potassium 5.0 Chloride 114 H Carbon Dioxide 26 Anion Gap 5 L BUN 23.8 H Creatinine 1.2 Est GFR (CKD-EPI)AfAm 63.08 Est GFR (CKD-EPI)NonAf 54.43 Random Glucose 93 Calcium 8.9 Magnesium 2.1 Total Bilirubin 0.2 AST 15 ALT 15 Alkaline Phosphatase 64 Total Protein 6.3 L Albumin 2.9 L Active Medications Generic Name Dose Route Start Last Admin Trade Name Freq PRN Reason Stop Dose Admin Levothyroxine Sodium 25 mcg 05/18/19 07:00 05/20/19 06:00 Synthroid - PO 25 mcg ACBK HERBER Administration Metoprolol Succinate 25 mg 05/18/19 10:00 05/20/19 10:52 Toprol Xl - PO 25 mg DAILY HERBER Administration Rosuvastatin Calcium 20 mg 05/20/19 10:00 05/20/19 10:52 Crestor - PO 20 mg DAILY HERBER Administration Timolol Maleate 1 drop 05/18/19 22:00 05/20/19 10:52 Timoptic 0.5% OU 1 drop BID HERBER Administration Microbiology 05/19/19 06:30 Stool Salmonella/Shigella Culture - Preliminary NO ENTERIC PATHOGENS, 24 HOURS, ON PRIMARY PLATES 05/19/19 06:30 Stool Yersinia Culture - Preliminary NO ENTERIC PATHOGENS, 24 HOURS, ON PRIMARY PLATES 05/19/19 06:30 Stool Vibrio Culture - Final NO GROWTH OF VIBRIO SPECIES OBTAINED 05/19/19 06:30 Stool Escherichia coli 0157 Culture - Final NO GROWTH OF E COLI 0157 OBTAINED 05/19/19 06:30 Stool Cryptosporidium Antigen - Final 05/19/19 06:30 Stool Giardia Antigen (LLOYD) - Final Constitutional: Yes: No Distress, Calm Eyes: Yes: Conjunctiva Clear HENT: Yes: Atraumatic Cardiovascular: Yes: Regular Rate and Rhythm Respiratory: Yes: Regular, CTA Bilaterally Gastrointestinal: Yes: Normal Bowel Sounds, Soft Musculoskeletal: Yes: Muscle Weakness Extremities: Yes: WNL Edema: No Neurological: Yes: Alert Psychiatric: Yes: Alert Labs: CBC, BMP 05/18/19 06:05 05/20/19 07:10 Discharge Summary Problems reviewed: Yes Reason For Visit: ACUTE KIDNEY INJURY,DIARRHEA Current Active Problems PATRICK (acute kidney injury) (Acute) CAD (coronary artery disease) (Acute) CHF (congestive heart failure) (Acute) Diarrhea (Acute) Hydronephrosis, left (Acute) Hospital Course: 88 year old mainly Occitan speaking male with a past medical history of hypertension, hyperlipidemia, congestive heart failure , coronary artery disease with 3 prior stents and bioprosthetic valve replacement(unknown valve) at [facility], hypothyroidism and prostate cancer with radiation now in remission who presents with diarrhea for more than one month. As per his daughter at bedside patient he has a history of prostate cancer and he was seen by Urology- Dr. Wells in [place] about one month ago and he was started on Bactrim for an intestinal infection as reported. Since then he started to have frequent watery diarrhea. His daughter took him to [facility] about 2-3 weeks ago where he was admitted for several days and treated for a bacterial infection. She was not sure what type of infection he was diagnosed with. Patient was discharged home after 3-4 days and continued to have diarrhea at home described stool being blackish/bloody. Daughter took him to the PMD, who has had him taking Flagyl TID for several weeks. She reports no improvement in his symptoms. He denied fevers/chills, abdominal pain, nausea, vomiting, or hematochezia. Daughter brought him to the ED today because she called the PMD, reported that her father has started to become weak with dizziness, headache and weight loss from the diarrhea, and she was instructed to bring him to the hospital. Patient was evlauted by GI and stool collected and sent for cultures. Stool culture negative and Stool OB neg as well. Patient since admission has not had further episodes of diarrhea or rectal bleeding. Condition: Stable - Instructions Diet, Activity, Other Instructions: Follow up PCP Dr Lucia in 2 weeks of discharge Follow up with GI Dr Abel for outpatient GI workup continue with medication as prescribed avoid Pepto-Bismal due to side effect of black colored stool Low fiber, Lactose free diet return to ER if develop severe pain, respiratory distress, chest pain Referrals: Heraclio Abel MD [Staff Physician] - Jordy Lucia MD, MD [Primary Care Provider] - Disposition: VNS/HOME HEALTH CARE - Home Medications Comprehensive Discharge Medication List: Ambulatory Orders Metoprolol Succinate [Toprol XL -] 25 mg PO DAILY 10/26/16 Rosuvastatin [Crestor -] 20 mg PO DAILY 10/26/16 Levothyroxine [Synthroid -] 25 mcg PO DAILY 01/12/19 Aspirin/Dipyridamole [Aggrenox -] 1 combo PO BID 05/17/19 Dexlansoprazole [Dexilant -] 60 mg PO DAILY 05/17/19 metroNIDAZOLE [Flagyl -] 250 mg PO TID 05/17/19 Timolol 0.5% [Timoptic 0.5%] 1 drop OU BID 05/18/19 Travoprost [Travatan Z] 1 drop OU HS 05/18/19
== END 2019-05-20 14:51 | disposition home health service (06) | DRG 372 ==
LOC: JER 14:15 → JERBED 21:11 → J6S 05-18 16:20
PROVIDERS: ADMIT Family Medicine; ATTEND Family Medicine
DX: A04.9 Bacterial intestinal infection, unspecified (principal); N17.9 Acute kidney failure, unspecified; N13.30 Unspecified hydronephrosis; I50.9 Heart failure, unspecified; I25.10 Atherosclerotic heart disease of native coronary artery without angina pectoris; E78.5 Hyperlipidemia, unspecified; E03.9 Hypothyroidism, unspecified; Z98.61 Coronary angioplasty status
CPT/HCPCS: 36415; 74176-TC; 80053; 81003; 82272; 83735; 84443; 85025; 87045; 87046; 87177; 87205; 87209; 87328; 87329; 93005; 93010; 97116-GP; 97161-GP; 99284-25; J7030

== ENCOUNTER 2020-01-16 18:19 | Emergency (ER) | payer OTHER ==
[2020-01-16 18:28] VITALS: BP 139/62; PULSE 60; TEMP 97.8; BMI 22.3
--- NOTE | 2020-01-16 18:28 | PDOC ---
Rapid Medical Evaluation Time Seen by Provider: 01/16/20 18:21 Medical Evaluation: Allergies Allergy/AdvReac Type Severity Reaction Status Date / Time No Known Allergies Allergy Verified 05/17/19 14:21 01/16/20 18:25 CC: chest pain midsternal x 3 days, No dizziness but feels weak and also with bleeding with urination Exam: no reproducible cp, lcta, mild pallor to conjuctiva Plan: labs, ekg, urine, cxr Discharge Disposition - Diagnosis Chest pain - Referrals - Patient Instructions - Post Discharge Activity
[2020-01-16 18:54] LABS: BASO % 1.1 % (0-2.0); EOS % 14.5 % (0-4.5); HEMOGLOBIN 10.5 GM/dL (11.7-16.9); LYMPH % 21.4 % (8-40); MCH 30.8 pg (25.7-33.7); MCHC 31.9 g/dl (32.0-35.9); MEAN CELL VOLUME 96.6 fl (80-96); MEAN PLT VOLUME 9.4 fl (7.5-11.1); MONO % 9.5 % (3.8-10.2); NEUT % 53.5 % (42.8-82.8); PLATELET COUNT 147 K/MM3 (134-434); RBC 3.41 M/mm3 (4.00-5.60); WHITE BLOOD COUNT 5.8 K/mm3 (4.0-10.0)
[2020-01-16 19:03] LABS: INR 0.96 (0.83-1.09); PROTHROMBIN TIME (PATIENT) 11.3 SEC (9.7-13.0)
--- NOTE | 2020-01-16 19:11 | PDOC ---
History of Present Illness - General Chief Complaint: Chest Pain Stated Complaint: CHEST PAIN/BLEEDING/PENAL Time Seen by Provider: 01/16/20 18:21 Past History - Medical History Allergies/Adverse Reactions: Allergies Allergy/AdvReac Type Severity Reaction Status Date / Time No Known Allergies Allergy Verified 05/17/19 14:21 Home Medications: Ambulatory Orders Metoprolol Succinate [Toprol XL -] 25 mg PO DAILY 10/26/16 Rosuvastatin [Crestor -] 20 mg PO DAILY 10/26/16 Levothyroxine [Synthroid -] 25 mcg PO DAILY 01/12/19 Aspirin/Dipyridamole [Aggrenox -] 1 combo PO BID 05/17/19 Dexlansoprazole [Dexilant -] 60 mg PO DAILY 05/17/19 metroNIDAZOLE [Flagyl -] 250 mg PO TID 05/17/19 Timolol 0.5% [Timoptic 0.5%] 1 drop OU BID 05/18/19 Travoprost [Travatan Z] 1 drop OU HS 05/18/19 Anemia: Yes Asthma: No Cancer: Yes (PROSTATE) Cardiac Disorders: Yes (NH: 2002) CVA: No COPD: Yes (EMPHYSEMA) CHF: No Diabetes: No GI Disorders: No Disorders: No HTN: Yes Hypercholesterolemia: Yes Kidney Stones: Yes Liver Disease: No Seizures: No Thyroid Disease: No - Surgical History Abdominal Surgery: No Appendectomy: No Cardiac Surgery: Yes (STENTS X 3: 2002; VALVE REPLACEMENT X 2: 11/2011) Cholecystectomy: No Lung Surgery: No Neurologic Surgery: No Orthopedic Surgery: No - Immunization History Immunization Up to Date: Yes - Psycho-Social/Smoking History Smoking Status: No (QUIT 2002) Smoking History: Never smoked Have you smoked in the past 12 months: No Number of Cigarettes Smoked Daily: 0 If you are a former smoker, when did you quit?: 1999 - Substance Abuse Hx (Audit-C & DAST Scrn) How often the patient has a drink containing alcohol: Never Score: In Men: 4 or > Positive; In Women: 3 or > Positive: 0 Screen Result (Pos requires Nsg. Audit-10AR): Negative *Physical Exam - Vital Signs Last Vital Signs Temp Pulse Resp BP Pulse Ox 97.8 F 60 15 139/62 99 01/16/20 18:26 01/16/20 18:26 01/16/20 18:26 01/16/20 18:26 01/16/20 18:26 ED Treatment Course - LABORATORY CBC & Chemistry Diagram: 01/16/20 18:39 01/16/20 18:39 - ADDITIONAL ORDERS Additional order review: Laboratory Results 01/16/20 18:39 PT with INR 11.30 INR 0.96 01/16/20 18:39 RBC 3.41 L MCV 96.6 H MCHC 31.9 L RDW 15.0 MPV 9.4 Neutrophils % 53.5 Lymphocytes % 21.4 D Monocytes % 9.5 Eosinophils % 14.5 H D Basophils % 1.1 Discharge - Discharge Information Clinical Impression/Diagnosis: Chest pain - Follow up/Referral Referrals: Jordy Lucia MD, MD [Primary Care Provider] - - Patient Discharge Instructions - Post Discharge Activity
[2020-01-16 19:24] LABS: ALBUMIN 3.6 g/dl (3.4-5.0); ALK PHOS 82 U/L (45-117); ANION GAP 8 MMOL/L (8-16); BILIRUBIN,TOTAL 0.4 mg/dL (0.2-1); CALCIUM 8.5 mg/dL (8.5-10.1); CHLORIDE 110 mmol/L (98-107); CO2 23 mmol/L (21-32); CREATININE 1.7 mg/dL (0.55-1.3); GLUCOSE,RANDOM 97 mg/dL (74-106); POTASSIUM 5.5 mmol/L (3.5-5.1); SGOT/AST 19 U/L (15-37); SGPT/ALT 17 U/L (13-61); SODIUM 141 mmol/L (136-145); TOT PROT 7.2 g/dl (6.4-8.2)
--- NOTE | 2020-01-16 19:50 | PDOC ---
*Physical Exam - Vital Signs Last Vital Signs Temp Pulse Resp BP Pulse Ox 97.8 F 60 15 139/62 99 01/16/20 18:26 01/16/20 18:26 01/16/20 18:26 01/16/20 18:26 01/16/20 18:26 ED Treatment Course - LABORATORY CBC & Chemistry Diagram: 01/16/20 18:39 01/16/20 18:39 - ADDITIONAL ORDERS Additional order review: Laboratory Results 01/16/20 01/16/20 18:39 18:39 PT with INR 11.30 INR 0.96 Sodium 141 Potassium 5.5 H Chloride 110 H Carbon Dioxide 23 Anion Gap 8 BUN 33.0 H Creatinine 1.7 H Est GFR (CKD-EPI)AfAm 41.11 Est GFR (CKD-EPI)NonAf 35.47 Random Glucose 97 Calcium 8.5 Total Bilirubin 0.4 AST 19 ALT 17 Alkaline Phosphatase 82 Creatine Kinase 157 Troponin I < 0.02 Total Protein 7.2 Albumin 3.6 01/16/20 18:39 RBC 3.41 L MCV 96.6 H MCHC 31.9 L RDW 15.0 MPV 9.4 Neutrophils % 53.5 Lymphocytes % 21.4 D Monocytes % 9.5 Eosinophils % 14.5 H D Basophils % 1.1 Medical Decision Making - Medical Decision Making 01/16/20 19:50 Patient seen by the advanced practice provider under my supervision. Ancillary testing reviewed as necessary. I agree with plan as outlined by the advanced practice provider. Discharge - Discharge Information Problems reviewed: Yes Clinical Impression/Diagnosis: Chest pain Qualifiers: Chest pain type: unspecified Qualified Code(s): R07.9 - Chest pain, unspecified Hematuria Qualifiers: Hematuria type: gross Qualified Code(s): R31.0 - Gross hematuria Condition: Stable Disposition: AGAINST MEDICAL ADVICE - Follow up/Referral Referrals: Jordy Lucia MD, [Primary Care Provider] - - Patient Discharge Instructions Patient Printed Discharge Instructions: DI for Hematuria, DI for Chest Pain Additional Instructions: YOU MUST FOLLOW UP WITH UROLOGY AND CARDIOLOGY WITHOUT FAIL Print Language: ZIMBABWEAN - Post Discharge Activity
--- NOTE | 2020-01-16 20:22 | PDOC ---
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 Patient's daughter states that he has been passing clots since yesterday from his penis and has been having to push them out causing him some pain daughter also states that he has blood in his urine. Patient has had theses symptoms intermittently since he had prostate cancer but has had chronic incontinence and uses a diaper at baseline. Patient states that he has been having intermittent chest pains for 3 days he saw his production supv a little over a week ago and was told that he needs an echocardiogram but has not received it yet. Patient also has a abdominal hernia which he states has been painful to touch over the last few days. Pt otherwise denies: fevers, chills, syncope, lightheadedness, dizziness, headaches, neck pain, shortness of breath, palpitations, back pain, nausea, vomiting, diarrhea, constipation. Past History - Medical History Allergies/Adverse Reactions: Allergies Allergy/AdvReac Type Severity Reaction Status Date / Time No Known Allergies Allergy Verified 05/17/19 14:21 Home Medications: Ambulatory Orders Metoprolol Succinate [Toprol XL -] 25 mg PO DAILY 10/26/16 Rosuvastatin [Crestor -] 20 mg PO DAILY 10/26/16 Levothyroxine [Synthroid -] 25 mcg PO DAILY 01/12/19 Aspirin/Dipyridamole [Aggrenox -] 1 combo PO BID 05/17/19 Dexlansoprazole [Dexilant -] 60 mg PO DAILY 05/17/19 metroNIDAZOLE [Flagyl -] 250 mg PO TID 05/17/19 Timolol 0.5% [Timoptic 0.5%] 1 drop OU BID 05/18/19 Travoprost [Travatan Z] 1 drop OU HS 05/18/19 Anemia: Yes Asthma: No Cancer: Yes (PROSTATE) Cardiac Disorders: Yes ([place]: 2002) CVA: No COPD: Yes (EMPHYSEMA) CHF: No Diabetes: No GI Disorders: No Disorders: No HTN: Yes Hypercholesterolemia: Yes Kidney Stones: Yes Liver Disease: No Seizures: No Thyroid Disease: No - Surgical History Abdominal Surgery: No Appendectomy: No Cardiac Surgery: Yes (STENTS X 3: 2002; VALVE REPLACEMENT X 2: 11/2011) Cholecystectomy: No Lung Surgery: No Neurologic Surgery: No Orthopedic Surgery: No - Immunization History Immunization Up to Date: Yes - Psycho-Social/Smoking History Smoking Status: No (QUIT 2002) Smoking History: Never smoked Have you smoked in the past 12 months: No Number of Cigarettes Smoked Daily: 0 If you are a former smoker, when did you quit?: 1999 - Substance Abuse Hx (Audit-C & DAST Scrn) How often the patient has a drink containing alcohol: Never Score: In Men: 4 or > Positive; In Women: 3 or > Positive: 0 Screen Result (Pos requires Nsg. Audit-10AR): Negative *Physical Exam - Vital Signs Last Vital Signs Temp Pulse Resp BP Pulse Ox 97.8 F 60 15 139/62 99 01/16/20 18:26 01/16/20 18:26 01/16/20 18:26 01/16/20 18:26 01/16/20 18:26 - Physical Exam 01/16/20 20:19 Gen: AAOx 3, no acute distress, comfortable, no signs of respiratory distress HENT: atraumatic, normocephalic with no laceration or contusion. Nasal mucosa without erythema. Oropharynx without erythema or exudates. Mucous membranes moist. EYES: PERRL, EOM intact, conjunctiva pink NECK: supple; trachea midline; no JVD, no lymphadenopathy, or thyromegaly CV: RRR no murmurs, gallops, or rubs. CHEST: CTA b/l no wheezing, rales or rhonchi ABD: +BS/ND. mildly TTP over epgastric region with a reducible hernia; rest of abdomen no ttp soft, no rebound, no guarding EXTREMITY: no cyanosis or erythema. 2+ dorsalis pedis, posterior tibial, and radial pulse. No pedal edema; no calf swelling or tenderness SKIN: no rash, warm and dry, no diaphoresis HEME: no purpura or ecchymosis NEURO: normal speech, CN II-XII intact, sensation intact, normal gait, no cerebellar deficits MS: 5/5 strength in all extremities, FROM intact in all extremities. ED Treatment Course - LABORATORY CBC & Chemistry Diagram: 01/16/20 18:39 01/16/20 18:39 - ADDITIONAL ORDERS Additional order review: Laboratory Results 01/16/20 01/16/20 18:39 18:39 PT with INR 11.30 INR 0.96 Sodium 141 Potassium 5.5 H Chloride 110 H Carbon Dioxide 23 Anion Gap 8 BUN 33.0 H Creatinine 1.7 H Est GFR (CKD-EPI)AfAm 41.11 Est GFR (CKD-EPI)NonAf 35.47 Random Glucose 97 Calcium 8.5 Total Bilirubin 0.4 AST 19 ALT 17 Alkaline Phosphatase 82 Creatine Kinase 157 Troponin I < 0.02 Total Protein 7.2 Albumin 3.6 01/16/20 18:39 RBC 3.41 L MCV 96.6 H MCHC 31.9 L RDW 15.0 MPV 9.4 Neutrophils % 53.5 Lymphocytes % 21.4 D Monocytes % 9.5 Eosinophils % 14.5 H D Basophils % 1.1 Medical Decision Making - Medical Decision Making 01/16/20 20:20 89-year-old male multiple comorbidities with chest pain hematuria and abdominal pain Vital signs stable Will obtain labs to rule out abdominal pathology cardiac pathology as well as UA UC Will place three-way Esposito catheter EKG chest x-ray Will reassess based on result EKG NSR at [address] elevations or depressions, flat T waves in V 5 6 Chest XR negative Esposito unable to be passed 2/2 pt noncompliance UA UC uncollected WBC 5.8 H/H: 10.5/33 Plt 147 K 5.5 no EKG changes Cr 1.7 (baseline 1.2-1.3) Trop and CK negative Pt advised that he will require further workup as well as esposito catheter for irrigation. Pt is adamantly refusing and wishes to leave the ED. I explained in detail to patient the importance of staying in the hospital and his daughter further explained and pleaded. Pt refused. AMA: Pt is AOx 3 and has full decision making capacity. Pt is informed of the benefits of staying for evaluation/treatment and the risks of leaving AMA, including worsening of symptoms, permanent diasbility, and . Pt understands and would still like to leave AMA. Pt given discharge instructions and told to f/u with PMD. 01/16/20 21:18 Discharge - Discharge Information Problems reviewed: Yes Clinical Impression/Diagnosis: Chest pain Qualifiers: Chest pain type: unspecified Qualified Code(s): R07.9 - Chest pain, unspecified Hematuria Qualifiers: Hematuria type: gross Qualified Code(s): R31.0 - Gross hematuria Condition: Stable Disposition: AGAINST MEDICAL ADVICE - Admission No - Follow up/Referral Referrals: Jordy Lucia MD, MD [Primary Care Provider] - - Patient Discharge Instructions Patient Printed Discharge Instructions: DI for Hematuria, DI for Chest Pain Additional Instructions: YOU MUST FOLLOW UP WITH UROLOGY AND CARDIOLOGY WITHOUT FAIL Print Language: ICELANDIC - Post Discharge Activity
[2020-01-17 00:54] LABS: LIPASE 158 U/L (73-393)
--- NOTE | 2020-01-17 10:44 | EKG ---
Test Reason : Blood Pressure : / mmHG Vent. Rate : 060 BPM Atrial Rate : 060 BPM P-R Int : 166 ms QRS Dur : 100 ms QT Int : 434 ms P-R-T Axes : 057 -22 060 degrees QTc Int : 434 ms NORMAL SINUS RHYTHM NONSPECIFIC T WAVE ABNORMALITY ABNORMAL ECG WHEN COMPARED WITH ECG OF 18-MAY-2019 09:47, NONSPECIFIC T WAVE ABNORMALITY NO LONGER EVIDENT IN INFERIOR LEADS NONSPECIFIC T WAVE ABNORMALITY NO LONGER EVIDENT IN ANTERIOR LEADS QT HAS LENGTHENED Confirmed by Roderick Dunlap ([id number]) on 01/17/2020 10:43:59 AM Referred By: Confirmed By:Roderick Dunlap
== END 2020-01-16 20:57 | disposition left against medical advice (07) ==
LOC: JER 18:19
DX: R07.9 Chest pain, unspecified (principal); R31.0 Gross hematuria
CPT/HCPCS: 36415; 71045-TC-FY; 80053; 82550; 82553; 83690; 84484; 85025; 85610; 86850; 86870; 86900; 86901; 86902; 93005; 93010; 99285-25

== ENCOUNTER 2021-02-27 09:49 | Emergency (ER) | payer OTHER ==
[2021-02-27 10:01] VITALS: TEMP 98.3; BMI 24.9
[2021-02-27 15:53] VITALS: BP 169/67; PULSE 60
== END 2021-02-27 15:54 | disposition home or self-care (01) ==
LOC: JER 09:49
DX: S09.90XA Unspecified injury of head, initial encounter (principal); S80.02XA Contusion of left knee, initial encounter; W01.0XXA Fall on same level from slipping, tripping and stumbling without subsequent striking against object, initial encounter
CPT/HCPCS: 70450-TC; 72125-TC; 99284-25